=== PATIENT | female | born 1950 | race Caucasian/White ===

== ENCOUNTER 2016-06-13 10:28 | Outpatient (CLI) | payer MEDICARE, OTHER | END 2016-06-13 10:29 | DX: E11.9 Type 2 diabetes mellitus without complications (principal) ==

== ENCOUNTER 2016-06-30 10:01 | Outpatient (CLI) | payer MEDICARE, OTHER | END 2016-06-30 10:02 | disposition home or self-care (01) | DX: E11.9 Type 2 diabetes mellitus without complications (principal); E01.0 Iodine-deficiency related diffuse (endemic) goiter ==

== ENCOUNTER 2016-08-01 09:05 | Outpatient (CLI) | payer MEDICARE, OTHER | END 2016-08-01 09:06 | disposition home or self-care (01) | DX: E24.9 Cushing's syndrome, unspecified (principal) ==

== ENCOUNTER 2016-08-12 08:26 | Outpatient (CLI) | payer MEDICARE, OTHER | END 2016-08-12 08:27 | disposition home or self-care (01) | DX: Z13.29 Encounter for screening for other suspected endocrine disorder (principal) ==

== ENCOUNTER 2016-09-26 13:01 | Outpatient (CLI) | payer MEDICARE, OTHER | END 2016-09-26 13:02 | disposition home or self-care (01) | LOC: SC 13:01 | PROVIDERS: ATTEND Internal Medicine Pulmonary Disease | DX: G47.30 Sleep apnea, unspecified (principal); G47.8 Other sleep disorders; R06.83 Snoring; G47.10 Hypersomnia, unspecified | CPT/HCPCS: 99203; G0463; 99212 ==

== ENCOUNTER 2016-10-17 19:32 | Outpatient (CLI) | payer MEDICARE, OTHER | END 2016-10-17 19:33 | disposition home or self-care (01) | LOC: SC 19:32 | PROVIDERS: ATTEND Internal Medicine Pulmonary Disease | DX: G47.33 Obstructive sleep apnea (adult) (pediatric) (principal); G47.61 Periodic limb movement disorder | CPT/HCPCS: 95810 ==

== ENCOUNTER 2016-10-18 17:35 | Outpatient (CLI) | payer MEDICARE, OTHER ==
[2016-10-18 13:37] LABS: HEMOGLOBIN A1C 0.63 g/dL
== END 2016-10-18 17:36 | disposition home or self-care (01) ==
LOC: LAB.WCP 17:35
PROVIDERS: ATTEND Family Medicine
DX: E11.9 Type 2 diabetes mellitus without complications (principal)
CPT/HCPCS: 36415; 83036; 84443

== ENCOUNTER 2016-10-19 15:00 | Outpatient (CLI) | payer MEDICARE, OTHER | END 2016-10-19 15:01 | LOC: LAB.R 15:00 | PROVIDERS: ATTEND Physician Assistant Medical | DX: N39.0 Urinary tract infection, site not specified (principal) | CPT/HCPCS: 87086 ==

== ENCOUNTER 2016-10-21 12:42 | Outpatient (CLI) | payer MEDICARE, OTHER ==
--- NOTE | 2016-10-24 13:05 | Mammography Report ---
DIGITAL SCREENING MAMMOGRAM: 10/21/2016 CLINICAL INDICATION: A 66-year-old for screening. COMPARISON: 09/2014, 05/2013, 05/2012, 05/2011, 05/2010, 05/2009 TECHNIQUE: Routine CC and MLO projections were obtained of the breasts. FINDINGS: The breasts again demonstrate heterogeneously dense fibroglandular parenchyma bilaterally. Coarse and punctate, typically benign calcifications are present. No suspicious masses, clustered microcalcifications, or regions of architectural distortion are identified. IMPRESSION: BENIGN FINDINGS. RECOMMENDATION: Routine annual screening unless otherwise clinically indicated. BIRADS CATEGORY 2 - BENIGN FINDINGS. STANDARD QUALIFYING STATEMENTS 1. This examination was reviewed with the aid of Computer-Aided Detection (CAD). 2. A negative or benign imaging report should not delay biopsy if clinically suspicious findings are present. Consider surgical consultation if warranted. More than 5% of cancers are not identified by i maging. 3. Dense breasts may obscure an underlying neoplasm. JOB #: [id number] EXT JOB #:[id number]
== END 2016-10-21 12:43 | disposition home or self-care (01) ==
LOC: DI 12:42
PROVIDERS: ATTEND Physician Assistant Medical
DX: Z12.31 Encounter for screening mammogram for malignant neoplasm of breast (principal)
CPT/HCPCS: 77067

== ENCOUNTER 2016-11-07 14:05 | Outpatient (CLI) | payer MEDICARE, OTHER | END 2016-11-07 14:06 | disposition home or self-care (01) | LOC: SC 14:05 | PROVIDERS: ATTEND Nurse Practitioner Family | DX: G47.33 Obstructive sleep apnea (adult) (pediatric) (principal); G47.61 Periodic limb movement disorder | CPT/HCPCS: 99214; G0463; 99212 ==

== ENCOUNTER 2017-03-02 13:17 | Outpatient (CLI) | payer MEDICARE, OTHER | END 2017-03-02 13:18 | disposition home or self-care (01) | LOC: SC 13:17 | PROVIDERS: ATTEND Nurse Practitioner Family | DX: G47.33 Obstructive sleep apnea (adult) (pediatric) (principal); G47.00 Insomnia, unspecified | CPT/HCPCS: 99214; G0463; 99212 ==

== ENCOUNTER 2017-04-04 09:06 | Emergency (ER) | payer MEDICARE, OTHER ==
--- NOTE | 2017-04-04 09:42 | XRAY Preliminary Report ---
Exam: XR ANKLE 3 VIEW LT IMPRESSION: Transverse possibly comminuted nondisplaced fracture base of fifth metatarsal. Three-view foot radiograph recommended for further assessment. Accessory ossicles or residua of old trauma in the region of the medial malleolus. No additional frac tures. No acute joint abnormality. Moderate soft tissue swelling about the ankle and proximal foot. [facility] SITE ID: [id number]
--- NOTE | 2017-04-04 09:48 | XRAY Report ---
EXAM: LEFT ANKLE RADIOGRAPHY, 3 VIEWS EXAM DATE: 04/04/2017 09:35 AM. CLINICAL HISTORY: 67-year-old female post ankle inversion injury yesterday. COMPARISON: None. TECHNIQUE: Frontal, lateral and oblique views. FINDINGS: Bones: Accessory ossicles or residua of old unfused fracture distal tip medial malleolus. Transverse essentially nondisplaced possibly mildly comminuted fracture base of fifth metatarsal. Moderate-sized plantar heel spur incidentally noted. No other osseous abnormalities noted. Joints: Normal. No effusion. No subluxations. The ankle mortise is normally aligned. Soft Tissues: Moderate diffuse soft tissue swelling about the ankle and proximal foot. No soft tissue gas or foreign body. IMPRESSION: Transverse possibly comminuted nondisplaced fracture base of fifth metatarsal. Three-view foot radiograph recommended for further assessment. Accessory ossicles or residua of old trauma in the region of the medial malleolus. No additional frac tures. No acute joint abnormality. Moderate soft tissue swelling about the ankle and proximal foot. [facility] Referring Provider Line: [phone] SITE ID: [id number]
[2017-04-04] MEDS ORDERED: HYDROcod/ACETAM 5/325 MG TABLET PO STA (12:04)
--- NOTE | 2017-04-04 12:40 | ED Physician Documentation ---
PD HPI LOWER EXT INJURY - Stated complaint Stated Complaint: GLF/LT FT PX - Chief complaint Chief Complaint: Ext Problem - History obtained from History obtained from: Patient, Family - History of Present Illness PD HPI LOW EXT INJURY LOCATION: Left, Ankle, Foot Type of injury: Fall, Twist Where injury occurred: Home Timing - onset: Last night Timing - duration: Hours Timing - details: Abrupt onset, Still present Improved by: Rest, Immobilization Worsened by: Moving, Palpating Associated symptoms: Swelling. No: Weakness Contributing factors: No: Anticoagulated Similar symptoms before: Has not had sx before Recently seen: Not recently seen - Additional information Additional information: 67-year-old female stepped off of her porch last night fell twisted her foot and ankle and has significant pain and swelling to the foot and ankle. She is not able to bear weight. Review of Systems Constitutional: denies: Fever Respiratory: denies: Cough GI: denies: Vomiting : denies: Dysuria Skin: denies: Rash Musculoskeletal: reports: Extremity pain, Extremity swelling, Pain with weight bearing. 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, 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 - Present Medications Home Medications: Ambulatory Orders Medication Instructions Recorded Confirmed Esomeprazole Magnesium [Nexium] 40 mg PO DAILY 04/24/14 04/04/17 Levothyroxine [Synthroid] 200 mcg PO QDAC 04/24/14 04/04/17 Losartan [Cozaar] 100 mg PO DAILY 04/24/14 04/04/17 Montelukast [Singulair] 10 mg PO DAILY 04/24/14 04/04/17 PARoxetine [Paxil] 60 mg PO DAILY 04/24/14 04/04/17 Pregabalin [Lyrica] 150 mg PO BID 04/24/14 04/04/17 Simvastatin 10 mg PO QPM 04/24/14 04/04/17 Metoprolol Tartrate 25 mg PO BID 02/24/15 04/04/17 metFORMIN [Glucophage] 1,000 mg PO BIDWM 02/24/15 04/04/17 HYDROcod/ACETAM 5/325 [[place] 5/325] 1 - 2 ea PO Q6H PRN #15 tablet 04/04/17 Rivaroxaban [Xarelto] 40 mg PO DAILY 04/04/17 04/04/17 - Allergies Allergies/Adverse Reactions: Allergies Allergy/AdvReac Type Severity Reaction Status Date / Time Iodine and Iodide Containing Allergy Rash Verified 04/04/17 09:16 Produc sulfamethoxazole Allergy Rash Verified 04/04/17 09:16 [From Bactrim] trimethoprim [From Bactrim] Allergy Rash Verified 04/04/17 09:16 Iodinated Contrast- Oral and AdvReac Mild Hives Verified 04/04/17 09:16 IV Dye cyclobenzaprine HCl * AdvReac Unknown Verified 04/04/17 09:16 [From Flexeril] - Social History Does the pt smoke?: No Smoking Status: Never smoker Does the pt drink ETOH?: No Does the pt have substance abuse?: No - Immunizations Immunizations are current?: Yes PD ED PE NORMAL - Vitals Vital signs reviewed: Yes (normal ) - General General: No acute distress, Well developed/nourished - HEENT HEENT: Atraumatic, PERRL - Respiratory Respiratory: No respiratory distress - Derm Derm: Normal color, Warm and dry, No rash - Extremities Extremities: No deformity, Other (There is swelling and point tenderness and ecchymosis over the proximal fifth metatarsal on the left foot. There is swelling over the ankle as well with some point tenderness over the talofibular ligament and over the anterior ankle. The distal neurovascular components are intact.) - Neuro Neuro: No motor deficit, No sensory deficit Eye Opening: Spontaneous Motor: Obeys Commands Verbal: Oriented GCS Score: 15 - Psych Psych: Normal mood, Normal affect Results - Vitals Vitals: Vital Signs - 24 hr 04/04/17 04/04/17 09:14 12:48 Temperature 37.0 C 36.3 C L Heart Rate 67 73 Respiratory 16 20 Rate Blood Pressure 129/67 127/71 O2 Saturation 91 L 94 Oxygen O2 Source [] Room air O2 Source Room air - Rads (name of study) Left Ankle Radiology: Prelim report reviewed (Impression: Transverse possibly comminuted nondisplaced fracture base of fifth metatarsal accessory ossicles or residual of old trauma in the region of the medial malleolus no additional fractures no acute joint abnormality. Moderate soft tissue swelling about the ankle and proximal foot.), EMP read indepedently, See rad report left foot Radiology: Prelim report reviewed (Impression: Transverse fracture at the base of the fifth metatarsal.), EMP read indepedently, See rad report Procedures - Splint (location) left foot Splint applied by: [employer]ber[employer] Type of splint: Fiberglass, Posterior Other: Patient tolerated well, No complications, Neurovascular intact, Good alignment, Crutches provided PD MEDICAL DECISION MAKING - ED course Complexity details: reviewed results, re-evaluated patient, considered differential, d/w patient, d/w family ED course: 67-year-old female with an injury to her left foot has a nondisplaced fracture of the proximal fifth metatarsal she has some general swelling of her ankle as well she is placed into a posterior splint and onto crutches she is given hydrocodone for pain. Departure - Departure Disposition: 01 Home, Self Care Clinical Impression: Metatarsal bone fracture Qualifiers: Encounter type: initial encounter Metatarsal bone: fifth Fracture type: closed Fracture alignment: nondisplaced Laterality: left Qualified Code(s): S92.355A - Nondisplaced fracture of fifth metatarsal bone, left foot, initial encounter for closed fracture Condition: Stable Instructions: ED Crutch Walking, ED Fx Foot Follow-Up: Corinne Munoz PA-C [Primary Care Provider] - Prescriptions: HYDROcod/ACETAM 5/325 [[place] 5/325] 1 - 2 ea PO Q6H PRN #15 tablet PRN Reason: Pain
[2017-04-04 12:48] VITALS: BP 127/71
--- NOTE | 2017-04-04 12:49 | XRAY Report ---
EXAM: LEFT FOOT RADIOGRAPHY EXAM DATE: 04/04/2017 12:37 PM. CLINICAL HISTORY: Prox 5th fracture. COMPARISON: None. TECHNIQUE: 3 views. FINDINGS: There is a transverse fracture of the base of the fifth metatarsal with mild displacement. No other f racture is identified. There is a plantar calcaneal spur. Impression: Transverse fracture at the base of the fifth metatarsal. [facility] Referring Provider Line: [phone] SITE ID: [id number]
== END 2017-04-04 13:21 | disposition home or self-care (01) ==
LOC: ED 09:06
DX: S92.355A Nondisplaced fracture of fifth metatarsal bone, left foot, initial encounter for closed fracture (principal); X50.1XXA Overexertion from prolonged static or awkward postures, initial encounter; Y92.019 Unspecified place in single-family (private) house as the place of occurrence of the external cause; I10 Essential (primary) hypertension; E11.9 Type 2 diabetes mellitus without complications; Z79.84 Long term (current) use of oral hypoglycemic drugs; E78.00 Pure hypercholesterolemia, unspecified; E03.9 Hypothyroidism, unspecified; M19.90 Unspecified osteoarthritis, unspecified site; M06.9 Rheumatoid arthritis, unspecified; Z86.711 Personal history of pulmonary embolism
CPT/HCPCS: 29505; 73610; 73630; 99283; 99284; A9270

== ENCOUNTER 2017-04-28 14:25 | Outpatient (CLI) | payer MEDICARE, OTHER | END 2017-04-28 14:26 | disposition home or self-care (01) | LOC: LAB.R 14:25 | PROVIDERS: ATTEND Registered Nurse | DX: N30.01 Acute cystitis with hematuria (principal) | CPT/HCPCS: 87077; 87086 ==

== ENCOUNTER 2017-05-02 10:35 | Outpatient (CLI) | payer MEDICARE, OTHER ==
[2017-05-02 13:11] LABS: BASOPHILS # (AUTO) 0.1 10^3/uL (0.0-0.1); BASOPHILS % (AUTO) 0.9 %; EOSINOPHILS # (AUTO) 0.3 10^3/uL (0.0-0.7); EOSINOPHILS % (AUTO) 2.6 %; HGB - HEMOGLOBIN 12.8 g/dL (12.0-16.0); LYMPHOCYTES # (AUTO) 1.9 10^3/uL (1.5-3.5); LYMPHOCYTES % (AUTO) 18.8 %; MEAN CORPUSCULAR HEMOGLOBIN 29.7 pg (27.0-31.0); MEAN CORPUSCULAR HGB CONC 33.4 g/dL (32.0-36.0); MEAN CORPUSCULAR VOLUME 88.9 fL (81.0-99.0); MEAN PLATELET VOLUME 9.6 fL (7.9-10.8); MONOCYTES # (AUTO) 0.5 10^3/uL (0.0-1.0); MONOCYTES % (AUTO) 5.1 %; NEUTROPHILS # (AUTO) 7.2 10^3/uL (1.5-6.6); NEUTROPHILS % (AUTO) 72.6 %; PLT - PLATELET COUNT 276 10^3/uL (130-450); RED BLOOD COUNT 4.32 10^6/uL (4.20-5.40); RED CELL DISTRIBUTION WIDTH 14.5 % (12.0-15.0); WHITE BLOOD COUNT 9.9 x10^3/uL (4.8-10.8)
[2017-05-02 13:27] LABS: HEMOGLOBIN A1C 0.67 g/dL; HEMOGLOBIN A1C % 6.5 % (4.6-6.2)
[2017-05-02 13:30] LABS: ALBUMIN 4.3 g/dL (3.2-5.5); ALBUMIN/GLOBULIN RATIO 1.3 (1.0-2.2); ALKALINE PHOSPHATASE 69 IU/L (42-121); ALT ALANINE AMINOTRANSFERASE 11 IU/L (10-60); AST ASPARTATE AMINOTRANSFERASE 17 IU/L (10-42); BILIRUBIN,TOTAL 0.5 mg/dL (0.2-1.0); BUN - BLOOD UREA NITROGEN 17 mg/dL (6-20); CALCIUM 8.1 mg/dL (8.5-10.3); CARBON DIOXIDE - CO2 24 mmol/L (21-32); CHLORIDE 103 mmol/L (101-111); CREATININE 1.1 mg/dL (0.4-1.0); GFR - MDRD 50 (>89); GLUCOSE 138 mg/dL (70-100); SODIUM 136 mmol/L (135-145); TOTAL PROTEIN 7.5 g/dL (6.7-8.2)
[2017-05-02 13:38] LABS: THYROID STIMULATING HORMONE 6.88 uIU/mL (0.34-5.60)
[2017-05-02 14:12] LABS: FREE T4 (FREE THYROXINE) 0.87 ng/dL (0.58-1.64)
== END 2017-05-02 10:36 | disposition home or self-care (01) ==
LOC: LAB.WCP 10:35
PROVIDERS: ATTEND Physician Assistant Medical
DX: E11.9 Type 2 diabetes mellitus without complications (principal); R42 Dizziness and giddiness
CPT/HCPCS: 36415; 80053; 83036; 84439; 84443; 85025

== ENCOUNTER 2017-05-12 11:32 | Outpatient (CLI) | payer MEDICARE, OTHER | END 2017-05-12 11:33 | disposition home or self-care (01) | LOC: LAB.R 11:32 | PROVIDERS: ATTEND Registered Nurse | DX: R82.99 Other abnormal findings in urine (principal) | CPT/HCPCS: 87086 ==

== ENCOUNTER 2017-05-18 08:00 | Outpatient (CLI) | payer MEDICARE, OTHER ==
[2017-05-18 18:29] LABS: BILIRUBIN,URINE NEGATIVE (NEGATIVE); GLUCOSE, URINE (UA) NEGATIVE (NEGATIVE); KETONES,URINE (UA) NEGATIVE (NEGATIVE); LEUKOCYTE ESTERASE, URINE NEGATIVE (NEGATIVE); NITRITE,URINE NEGATIVE (NEGATIVE); OCCULT BLOOD,URINE NEGATIVE (NEGATIVE); PH,URINE 5.5 PH (5.0-7.5); PROTEIN,URINE NEGATIVE (NEGATIVE); UROBILINOGEN,URINE 0.2 (NORMAL) E.U./dL (NORMAL)
[2017-05-18 18:31] LABS: CLARITY,URINE CLEAR (CLEAR)
[2017-05-18 19:14] LABS: BACTERIA,URINE Moderate /HPF (None Seen); CASTS, URINE >50 Hyaline Casts /LPF; RBC,URINE 0-5 /HPF (0-5); SQUAMOUS EPITHELIAL CELL,UR FEW Squamous (<= Few); WBC CLUMPS,URINE PRESENT
== END 2017-05-18 08:01 | disposition home or self-care (01) ==
LOC: LAB.R 08:00
PROVIDERS: ATTEND Obstetrics & Gynecology
DX: R31.9 Hematuria, unspecified (principal)
CPT/HCPCS: 81001; 87086

== ENCOUNTER 2017-05-24 07:51 | Outpatient (CLI) | payer MEDICARE, OTHER ==
[2017-05-24] MEDS ORDERED: IOPAMIDOL-300 100 ML VIAL ONE (09:00)
[2017-05-24] MEDS ORDERED: IOPAMIDOL-300 100 ML VIAL IVP ONE (09:20)
--- NOTE | 2017-05-24 11:10 | CT Report ---
ABDOMEN AND PELVIS CT: 05/24/2017 COMPARISON: Abdomen and pelvis CT 02/21/2014. INDICATION: Hematuria. TECHNIQUE: Multiphase axial imaging of the abdomen and pelvis was performed with and without contrast. Coronal and sagittal reformats. FINDINGS: There is an ill-defined hypoenhancing focus in the inferior right kidney, 2.3 x 1.9 cm in the coronal plane, previously 2.4 x 1.7 cm in 2014. This appears essentially unchanged. There is a similar hypoenhancing focus in the inferior left kidney 1.7 x 1.6 cm , axially. No renal or other urologic stones. No bladder mass. The liver, spleen, pancreas, adrenal glands appear otherwise unremarkable. There are multiple colon diverticula without evidence of diverticulitis. No bone lesions. IMPRESSION: 1. NO UROLOGIC STONES. 2. THERE ARE HYPOENHANCING FOCI IN THE INFERIOR KIDNEYS. THEY APPEAR LIKELY UNCHANGED COMPARED TO PRIOR CT OF 2013. THAT SAID, RENAL CELL CARCINOMA MAY BE SLOW GROWING. THE AREAS COULD BE FURTHER EVALUATED WITH MRI INDICATED. In accordance with CT protocol optimization, one or more of the following dose reduction techniques were utilized for this exam: automated exposure control, adjustment of mA and/or KV based on patient size, or use of iterative reconstructive technique. TD: 05/24/2017 11:08 BECKI
== END 2017-05-24 07:52 | disposition home or self-care (01) ==
LOC: DI 07:51
PROVIDERS: ATTEND Obstetrics & Gynecology
DX: N28.89 Other specified disorders of kidney and ureter (principal); R31.9 Hematuria, unspecified
CPT/HCPCS: 74178; Q9967

== ENCOUNTER 2017-06-01 09:06 | Outpatient (CLI) | payer MEDICARE, OTHER | END 2017-06-01 09:07 | disposition home or self-care (01) | LOC: SC 09:06 | PROVIDERS: ATTEND Nurse Practitioner Family | DX: G47.33 Obstructive sleep apnea (adult) (pediatric) (principal); G47.00 Insomnia, unspecified | CPT/HCPCS: 99214; G0463; 99212 ==

== ENCOUNTER 2017-07-11 11:13 | Outpatient (CLI) | payer MEDICARE, OTHER | END 2017-07-11 11:14 | disposition home or self-care (01) | LOC: SC 11:13 | PROVIDERS: ATTEND Nurse Practitioner Family | DX: G47.33 Obstructive sleep apnea (adult) (pediatric) (principal) | CPT/HCPCS: 99214; G0463; 99212 ==

== ENCOUNTER 2017-08-28 08:00 | Outpatient (CLI) | payer MEDICARE, OTHER ==
[2017-08-28 12:49] LABS: HB2 TOTAL 12.8 g/dL; HEMOGLOBIN A1C 0.57 g/dL; HEMOGLOBIN A1C % 6.2 % (4.6-6.2)
[2017-08-28 12:55] LABS: ALBUMIN 3.7 g/dL (3.2-5.5); ALBUMIN/GLOBULIN RATIO 1.1 (1.0-2.2); ALKALINE PHOSPHATASE 77 IU/L (42-121); ALT ALANINE AMINOTRANSFERASE 11 IU/L (10-60); AST ASPARTATE AMINOTRANSFERASE 17 IU/L (10-42); BILIRUBIN,TOTAL 0.6 mg/dL (0.2-1.0); BUN - BLOOD UREA NITROGEN 20 mg/dL (6-20); CALCIUM 8.5 mg/dL (8.5-10.3); CARBON DIOXIDE - CO2 23 mmol/L (21-32); CHLORIDE 107 mmol/L (101-111); CHOL/HDL RATIO 3.3 (<4.4); CHOLESTEROL 130 mg/dL; GFR - MDRD 55 (>89); GLUCOSE 147 mg/dL (70-100); HDL CHOLESTEROL 39 mg/dL; LDL CHOLESTEROL,CALCULATED 49 mg/dL; LDL/HDL RATIO 1.3 (<4.4); SODIUM 139 mmol/L (135-145); THYROID STIMULATING HORMONE 14.75 uIU/mL (0.34-5.60); TOTAL PROTEIN 7.2 g/dL (6.7-8.2); VLDL CHOLESTEROL 42 mg/dL
[2017-08-28 13:30] LABS: FREE T4 (FREE THYROXINE) 0.69 ng/dL (0.58-1.64)
== END 2017-08-28 08:01 ==
LOC: LAB.WCP 08:00
PROVIDERS: ATTEND Physician Assistant Medical
DX: E03.9 Hypothyroidism, unspecified (principal); E11.9 Type 2 diabetes mellitus without complications; E78.5 Hyperlipidemia, unspecified
CPT/HCPCS: 36415; 80053; 80061; 83036; 83721; 84439; 84443

== ENCOUNTER 2017-12-04 09:10 | Outpatient (CLI) | payer MEDICARE, OTHER ==
[2017-12-04 14:35] LABS: BUN - BLOOD UREA NITROGEN 13 mg/dL (6-20); CALCIUM 8.8 mg/dL (8.5-10.3); CARBON DIOXIDE - CO2 26 mmol/L (21-32); CHLORIDE 105 mmol/L (101-111); CREATININE 0.9 mg/dL (0.4-1.0); GFR - MDRD 62 (>89); GLUCOSE 150 mg/dL (70-100); SODIUM 141 mmol/L (135-145)
[2017-12-04 14:38] LABS: HB2 TOTAL 13.1 g/dL; HEMOGLOBIN A1C 0.63 g/dL; HEMOGLOBIN A1C % 6.6 % (4.6-6.2)
== END 2017-12-04 09:11 | disposition home or self-care (01) ==
LOC: LAB.WCP 09:10
PROVIDERS: ATTEND Physician Assistant Medical
DX: E11.9 Type 2 diabetes mellitus without complications (principal); E03.9 Hypothyroidism, unspecified
CPT/HCPCS: 36415; 80048; 83036; 84443

== ENCOUNTER 2018-02-23 08:00 | Outpatient (CLI) | payer MEDICARE, OTHER ==
[2018-02-23 14:12] LABS: HB2 TOTAL 13.2 g/dL; HEMOGLOBIN A1C 0.61 g/dL; HEMOGLOBIN A1C % 6.4 % (4.6-6.2)
[2018-02-23 14:28] LABS: ALBUMIN 3.9 g/dL (3.2-5.5); ALBUMIN/GLOBULIN RATIO 1.2 (1.0-2.2); ALKALINE PHOSPHATASE 76 IU/L (42-121); ALT ALANINE AMINOTRANSFERASE 15 IU/L (10-60); AST ASPARTATE AMINOTRANSFERASE 17 IU/L (10-42); BILIRUBIN,TOTAL 0.4 mg/dL (0.2-1.0); BUN - BLOOD UREA NITROGEN 23 mg/dL (6-20); CALCIUM 9.4 mg/dL (8.5-10.3); CARBON DIOXIDE - CO2 23 mmol/L (21-32); CHLORIDE 105 mmol/L (101-111); CHOL/HDL RATIO 3.2 (<4.4); CHOLESTEROL 136 mg/dL; CREATININE 1.1 mg/dL (0.4-1.0); GFR - MDRD 49 (>89); GLUCOSE 111 mg/dL (70-100); HDL CHOLESTEROL 42 mg/dL; LDL CHOLESTEROL,CALCULATED 37 mg/dL; LDL/HDL RATIO 0.9 (<4.4); SODIUM 140 mmol/L (135-145); TOTAL PROTEIN 7.1 g/dL (6.7-8.2); VLDL CHOLESTEROL 57 mg/dL
== END 2018-02-23 23:59 | disposition home or self-care (01) ==
LOC: LAB.WCP 08:00
PROVIDERS: ATTEND Physician Assistant Medical
DX: E11.9 Type 2 diabetes mellitus without complications (principal); E03.9 Hypothyroidism, unspecified
CPT/HCPCS: 36415; 80053; 80061; 83036; 83721; 84443

== ENCOUNTER 2018-05-25 09:25 | Outpatient (CLI) | payer MEDICARE, OTHER ==
[2018-05-25 13:10] LABS: CREATININE 1.1 mg/dL (0.4-1.0)
[2018-05-25 13:25] LABS: CALCIUM 9.3 mg/dL (8.5-10.3)
[2018-05-25 14:54] LABS: HB2 TOTAL 13.6 g/dL; HEMOGLOBIN A1C 0.66 g/dL; HEMOGLOBIN A1C % 6.6 % (4.6-6.2)
== END 2018-05-25 09:26 | disposition home or self-care (01) ==
LOC: LAB.WCP 09:25
PROVIDERS: ATTEND Physician Assistant Medical
DX: E11.9 Type 2 diabetes mellitus without complications (principal)
CPT/HCPCS: 36415; 80048; 83036

== ENCOUNTER 2018-09-03 10:37 | Outpatient (CLI) | payer MEDICARE, OTHER ==
[2018-09-03 12:41] LABS: ALBUMIN 3.8 g/dL (3.2-5.5); ALBUMIN/GLOBULIN RATIO 1.1 (1.0-2.2); ALKALINE PHOSPHATASE 69 IU/L (42-121); ALT ALANINE AMINOTRANSFERASE 12 IU/L (10-60); AST ASPARTATE AMINOTRANSFERASE 14 IU/L (10-42); BILIRUBIN,TOTAL 0.6 mg/dL (0.2-1.0); BUN - BLOOD UREA NITROGEN 20 mg/dL (6-20); CALCIUM 8.6 mg/dL (8.5-10.3); CARBON DIOXIDE - CO2 22 mmol/L (21-32); CHLORIDE 110 mmol/L (101-111); CHOL/HDL RATIO 3.6 (<4.4); CHOLESTEROL 146 mg/dL; CREATININE 0.9 mg/dL (0.4-1.0); GFR - MDRD 62 (>89); GLUCOSE 146 mg/dL (70-100); HDL CHOLESTEROL 41 mg/dL; LDL CHOLESTEROL,CALCULATED 69 mg/dL; LDL/HDL RATIO 1.7 (<4.4); SODIUM 142 mmol/L (135-145); TOTAL PROTEIN 7.2 g/dL (6.7-8.2); VLDL CHOLESTEROL 36 mg/dL
[2018-09-03 12:44] LABS: HB2 TOTAL 12.3 g/dL; HEMOGLOBIN A1C 0.6 g/dL; HEMOGLOBIN A1C % 6.6 % (4.6-6.2)
== END 2018-09-03 10:38 | disposition home or self-care (01) ==
LOC: LAB.WCP 10:37
PROVIDERS: ATTEND Physician Assistant Medical
DX: E11.9 Type 2 diabetes mellitus without complications (principal); E78.5 Hyperlipidemia, unspecified
CPT/HCPCS: 36415; 80053; 80061; 83036; 83721

== ENCOUNTER 2018-12-31 11:00 | Outpatient (CLI) | payer MEDICARE, OTHER ==
[2018-12-31 19:04] LABS: CALCIUM 8.7 mg/dL (8.5-10.3)
[2018-12-31 19:14] LABS: HB2 TOTAL 13.2 g/dL; HEMOGLOBIN A1C 0.67 g/dL; HEMOGLOBIN A1C % 6.8 % (4.6-6.2)
[2019-01-01 11:16] LABS: HEPATITIS C ANTIBODY NON-REACTIVE (NON-REACTIVE)
== END 2018-12-31 11:01 | disposition home or self-care (01) ==
LOC: LAB.WCP 11:00
PROVIDERS: ATTEND Physician Assistant Medical
DX: E11.9 Type 2 diabetes mellitus without complications (principal); Z11.59 Encounter for screening for other viral diseases
CPT/HCPCS: 36415; 80048; 83036; 86803

== ENCOUNTER 2019-04-29 11:49 | Outpatient (CLI) | payer MEDICARE, OTHER ==
[2019-04-29 18:51] LABS: ALBUMIN 3.9 g/dL (3.2-5.5); ALBUMIN/GLOBULIN RATIO 1.1 (1.0-2.2); ALKALINE PHOSPHATASE 62 IU/L (42-121); ALT ALANINE AMINOTRANSFERASE 18 IU/L (10-60); AST ASPARTATE AMINOTRANSFERASE 21 IU/L (10-42); BILIRUBIN,TOTAL 0.5 mg/dL (0.2-1.0); BUN - BLOOD UREA NITROGEN 21 mg/dL (6-20); CALCIUM 8.9 mg/dL (8.5-10.3); CARBON DIOXIDE - CO2 26 mmol/L (21-32); CHLORIDE 105 mmol/L (101-111); CHOL/HDL RATIO 3.3 (<4.4); CHOLESTEROL 137 mg/dL; GFR - MDRD 55 (>89); GLUCOSE 149 mg/dL (70-100); HDL CHOLESTEROL 42 mg/dL; LDL CHOLESTEROL,CALCULATED 49 mg/dL; LDL/HDL RATIO 1.2 (<4.4); SODIUM 142 mmol/L (135-145); TOTAL PROTEIN 7.4 g/dL (6.7-8.2); VLDL CHOLESTEROL 46 mg/dL
[2019-04-29 19:07] LABS: HEMOGLOBIN A1C 0.68 g/dL; HEMOGLOBIN A1C % 6.9 % (4.6-6.2)
== END 2019-04-29 23:59 | disposition home or self-care (01) ==
LOC: LAB.WCP 11:49
PROVIDERS: ATTEND Physician Assistant Medical
DX: E11.9 Type 2 diabetes mellitus without complications (principal)
CPT/HCPCS: 36415; 80053; 80061; 83036; 83721

== ENCOUNTER 2019-08-26 11:26 | Outpatient (CLI) | payer MEDICARE, OTHER ==
[2019-08-26 18:52] LABS: ALBUMIN/GLOBULIN RATIO 1.1 (1.0-2.2); ALKALINE PHOSPHATASE 72 IU/L (42-121); ALT ALANINE AMINOTRANSFERASE 25 IU/L (10-60); AST ASPARTATE AMINOTRANSFERASE 27 IU/L (10-42); BILIRUBIN,TOTAL 0.6 mg/dL (0.2-1.0); BUN - BLOOD UREA NITROGEN 18 mg/dL (6-20); CALCIUM 9.3 mg/dL (8.5-10.3); CARBON DIOXIDE - CO2 26 mmol/L (21-32); CHLORIDE 104 mmol/L (101-111); CHOL/HDL RATIO 3.4 (<4.4); CHOLESTEROL 149 mg/dL; GLUCOSE 190 mg/dL (70-100); HDL CHOLESTEROL 44 mg/dL; LDL CHOLESTEROL,CALCULATED 59 mg/dL; LDL/HDL RATIO 1.3 (<4.4); SODIUM 140 mmol/L (135-145); TOTAL PROTEIN 7.6 g/dL (6.7-8.2); VLDL CHOLESTEROL 46 mg/dL
[2019-08-26 19:01] LABS: HB2 TOTAL 14.2 g/dL; HEMOGLOBIN A1C 0.77 g/dL; HEMOGLOBIN A1C % 7.1 % (4.6-6.2)
[2019-08-26 19:03] LABS: CREATININE,URINE 95.9 mg/dL; MICROALBUM/CREATININE RATIO,UR 78.2 ug/mg (<30.0); MICROALBUMIN,URINE 7.5 mg/dL (0-300.0)
== END 2019-08-26 23:59 | disposition home or self-care (01) ==
LOC: LAB.WCP 11:26
PROVIDERS: ATTEND Physician Assistant Medical
DX: E11.9 Type 2 diabetes mellitus without complications (principal)
CPT/HCPCS: 36415; 80053; 80061; 82043; 82570; 83036; 83721

== ENCOUNTER 2019-11-28 07:48 | Day surgery (SDC) | payer MEDICARE, OTHER ==
[2019-11-28] MEDS ORDERED: fentaNYL 250 MCG/5 ML VIAL IVP ONE (07:49)
[2019-11-28] MEDS ORDERED: MIDAZOLAM 2 MG/2 ML VIAL IVP ONE (07:49)
[2019-11-28] MEDS ORDERED: LACTATED RINGERS 1,000 ML IV ONE ×2 (08:15→10:28)
[2019-11-28 11:04] VITALS: BP 97/77
== END 2019-11-28 07:49 | disposition home or self-care (01) ==
LOC: SDS 07:48
PROVIDERS: ATTEND Surgery
DX: Z12.11 Encounter for screening for malignant neoplasm of colon (principal); K57.30 Diverticulosis of large intestine without perforation or abscess without bleeding; Z79.82 Long term (current) use of aspirin; G47.33 Obstructive sleep apnea (adult) (pediatric); M06.9 Rheumatoid arthritis, unspecified; Z86.711 Personal history of pulmonary embolism; F32.9 Major depressive disorder, single episode, unspecified; K21.9 Gastro-esophageal reflux disease without esophagitis; E11.9 Type 2 diabetes mellitus without complications; I10 Essential (primary) hypertension; E78.5 Hyperlipidemia, unspecified; E03.9 Hypothyroidism, unspecified
CPT/HCPCS: G0105; J3010; J7120

== ENCOUNTER 2020-09-10 08:00 | Outpatient (CLI) | payer MEDICARE, OTHER ==
[2020-09-10 12:21] LABS: BASOPHILS # (AUTO) 0.1 10^3/uL (0.0-0.1); BASOPHILS % (AUTO) 0.8 %; EOSINOPHILS # (AUTO) 0.3 10^3/uL (0.0-0.7); EOSINOPHILS % (AUTO) 1.9 %; HCT - HEMATOCRIT 40.5 % (37.0-47.0); HGB - HEMOGLOBIN 12.9 g/dL (12.0-16.0); LYMPHOCYTES # (AUTO) 2.5 10^3/uL (1.5-3.5); LYMPHOCYTES % (AUTO) 18.6 %; MEAN CORPUSCULAR HEMOGLOBIN 27.6 pg (27.0-31.0); MEAN CORPUSCULAR HGB CONC 31.9 g/dL (32.0-36.0); MEAN CORPUSCULAR VOLUME 86.7 fL (81.0-99.0); MEAN PLATELET VOLUME 11.7 fL (7.9-10.8); MONOCYTES # (AUTO) 0.7 10^3/uL (0.0-1.0); MONOCYTES % (AUTO) 5.3 %; NEUTROPHILS # (AUTO) 9.7 10^3/uL (1.5-6.6); NEUTROPHILS % (AUTO) 72.7 %; PLT - PLATELET COUNT 350 10^3/uL (130-450); RED BLOOD COUNT 4.67 10^6/uL (4.20-5.40); RED CELL DISTRIBUTION WIDTH 15.1 % (12.0-15.0); WHITE BLOOD COUNT 13.3 x10^3/uL (4.8-10.8)
[2020-09-10 12:31] LABS: ESTIMATED AVERAGE GLUCOSE 166 mg/dL (70-100); HEMOGLOBIN A1c% 7.4 % (4.27-6.07)
[2020-09-10 12:47] LABS: ALBUMIN 4.1 g/dL (3.2-5.5); ALBUMIN/GLOBULIN RATIO 1.1 (1.0-2.2); ALKALINE PHOSPHATASE 84 IU/L (42-121); ALT ALANINE AMINOTRANSFERASE 17 IU/L (10-60); AST ASPARTATE AMINOTRANSFERASE 17 IU/L (10-42); BILIRUBIN,TOTAL 0.8 mg/dL (0.2-1.0); BUN - BLOOD UREA NITROGEN 26 mg/dL (6-20); CALCIUM 9.2 mg/dL (8.5-10.3); CARBON DIOXIDE - CO2 24 mmol/L (21-32); CHLORIDE 103 mmol/L (101-111); CHOL/HDL RATIO 3.6 (<4.4); CHOLESTEROL 167 mg/dL; CREATININE 1.2 mg/dL (0.4-1.0); CREATININE,URINE 187.4 mg/dL; GFR - MDRD 44 (>89); GLUCOSE 193 mg/dL (70-100); HDL CHOLESTEROL 47 mg/dL; LDL CHOLESTEROL,CALCULATED 64 mg/dL; LDL/HDL RATIO 1.4 (<4.4); MICROALBUM/CREATININE RATIO,UR 51.2 ug/mg (<30.0); MICROALBUMIN,URINE 9.6 mg/dL (0-300.0); POTASSIUM 4.4 mmol/L (3.5-5.0); SODIUM 137 mmol/L (135-145); TOTAL PROTEIN 7.8 g/dL (6.7-8.2); TRIGLYCERIDES 281 mg/dL; VLDL CHOLESTEROL 56 mg/dL
[2020-09-10 12:52] LABS: THYROID STIMULATING HORMONE < 0.08 uIU/mL (0.34-5.60)
[2020-09-10 14:35] LABS: FREE T4 (FREE THYROXINE) 1.62 ng/dL (0.58-1.64)
== END 2020-09-10 08:01 | disposition home or self-care (01) ==
LOC: LAB.WCP 08:00
PROVIDERS: ATTEND Physician Assistant Medical
DX: E11.9 Type 2 diabetes mellitus without complications (principal); G62.9 Polyneuropathy, unspecified; J45.909 Unspecified asthma, uncomplicated
CPT/HCPCS: 36415; 80053; 80061; 82043; 82570; 82607; 83036; 83721; 84439; 84443; 85025

== ENCOUNTER 2020-10-22 10:04 | Outpatient (CLI) | payer MEDICARE, OTHER ==
[2020-10-22 12:14] LABS: BASOPHILS # (AUTO) 0.1 10^3/uL (0.0-0.1); BASOPHILS % (AUTO) 0.8 %; EOSINOPHILS # (AUTO) 0.4 10^3/uL (0.0-0.7); EOSINOPHILS % (AUTO) 3.1 %; HCT - HEMATOCRIT 40.3 % (37.0-47.0); HGB - HEMOGLOBIN 12.5 g/dL (12.0-16.0); LYMPHOCYTES # (AUTO) 2.6 10^3/uL (1.5-3.5); LYMPHOCYTES % (AUTO) 22.3 %; MEAN CORPUSCULAR HEMOGLOBIN 27.1 pg (27.0-31.0); MEAN CORPUSCULAR VOLUME 87.4 fL (81.0-99.0); MEAN PLATELET VOLUME 11.3 fL (7.9-10.8); MONOCYTES # (AUTO) 0.7 10^3/uL (0.0-1.0); MONOCYTES % (AUTO) 5.7 %; NEUTROPHILS % (AUTO) 67.3 %; PLT - PLATELET COUNT 319 10^3/uL (130-450); RED BLOOD COUNT 4.61 10^6/uL (4.20-5.40); RED CELL DISTRIBUTION WIDTH 15.4 % (12.0-15.0); WHITE BLOOD COUNT 11.9 x10^3/uL (4.8-10.8)
[2020-10-22 12:31] LABS: CALCIUM 9.6 mg/dL (8.5-10.3); CREATININE 1.1 mg/dL (0.4-1.0); POTASSIUM 4.6 mmol/L (3.5-5.0)
[2020-10-22 13:00] LABS: THYROID STIMULATING HORMONE < 0.08 uIU/mL (0.34-5.60)
[2020-10-22 13:34] LABS: FREE T4 (FREE THYROXINE) 1.68 ng/dL (0.58-1.64)
== END 2020-10-22 23:59 | disposition home or self-care (01) ==
LOC: LAB.WCP 10:04
PROVIDERS: ATTEND Physician Assistant Medical
DX: E11.9 Type 2 diabetes mellitus without complications (principal); E03.9 Hypothyroidism, unspecified; K21.9 Gastro-esophageal reflux disease without esophagitis
CPT/HCPCS: 36415; 80048; 84439; 84443; 85025

== ENCOUNTER 2020-12-01 08:52 | Outpatient (CLI) | payer MEDICARE, OTHER ==
[2020-12-01 12:07] LABS: BASOPHILS # (AUTO) 0.1 10^3/uL (0.0-0.1); EOSINOPHILS # (AUTO) 0.4 10^3/uL (0.0-0.7); EOSINOPHILS % (AUTO) 2.7 %; LYMPHOCYTES # (AUTO) 3.3 10^3/uL (1.5-3.5); LYMPHOCYTES % (AUTO) 25.4 %; MEAN CORPUSCULAR HEMOGLOBIN 27.3 pg (27.0-31.0); MEAN CORPUSCULAR VOLUME 88.2 fL (81.0-99.0); MEAN PLATELET VOLUME 11.4 fL (7.9-10.8); MONOCYTES # (AUTO) 0.7 10^3/uL (0.0-1.0); NEUTROPHILS # (AUTO) 8.4 10^3/uL (1.5-6.6); NEUTROPHILS % (AUTO) 65.2 %; PLT - PLATELET COUNT 393 10^3/uL (130-450); RED BLOOD COUNT 4.76 10^6/uL (4.20-5.40); RED CELL DISTRIBUTION WIDTH 15.4 % (12.0-15.0); WHITE BLOOD COUNT 12.9 x10^3/uL (4.8-10.8)
[2020-12-01 12:37] LABS: ALBUMIN 3.9 g/dL (3.2-5.5); ALBUMIN/GLOBULIN RATIO 1.1 (1.0-2.2); BILIRUBIN,TOTAL 0.8 mg/dL (0.2-1.0); CALCIUM 9.1 mg/dL (8.5-10.3); CREATININE 1.2 mg/dL (0.4-1.0); POTASSIUM 4.3 mmol/L (3.5-5.0); TOTAL PROTEIN 7.5 g/dL (6.7-8.2)
[2020-12-01 12:57] LABS: ESTIMATED AVERAGE GLUCOSE 174 mg/dL (70-100); HEMOGLOBIN A1c% 7.7 % (4.27-6.07)
== END 2020-12-01 23:59 | disposition home or self-care (01) ==
LOC: LAB.WCP 08:52
PROVIDERS: ATTEND Physician Assistant Medical
DX: E53.8 Deficiency of other specified B group vitamins (principal); D72.829 Elevated white blood cell count, unspecified; E11.22 Type 2 diabetes mellitus with diabetic chronic kidney disease; N18.9 Chronic kidney disease, unspecified
CPT/HCPCS: 36415; 80053; 82607; 83036; 85025

== ENCOUNTER 2020-12-04 08:00 | Outpatient (CLI) | payer MEDICARE, OTHER | END 2020-12-04 23:59 | disposition home or self-care (01) | LOC: LAB 08:00 | PROVIDERS: ATTEND Physician Assistant Medical | DX: N39.0 Urinary tract infection, site not specified (principal) | CPT/HCPCS: 87086; 87181 ==

== ENCOUNTER 2021-03-02 10:03 | Outpatient (CLI) | payer MEDICARE, OTHER ==
[2021-03-02 14:51] LABS: BASOPHILS # (AUTO) 0.1 10^3/uL (0.0-0.1); BASOPHILS % (AUTO) 0.7 %; EOSINOPHILS # (AUTO) 0.4 10^3/uL (0.0-0.7); EOSINOPHILS % (AUTO) 3.8 %; HCT - HEMATOCRIT 39.9 % (37.0-47.0); HGB - HEMOGLOBIN 12.7 g/dL (12.0-16.0); LYMPHOCYTES # (AUTO) 3.5 10^3/uL (1.5-3.5); LYMPHOCYTES % (AUTO) 31.4 %; MEAN CORPUSCULAR HEMOGLOBIN 28.3 pg (27.0-31.0); MEAN CORPUSCULAR HGB CONC 31.8 g/dL (32.0-36.0); MEAN CORPUSCULAR VOLUME 88.9 fL (81.0-99.0); MEAN PLATELET VOLUME 11.7 fL (7.9-10.8); MONOCYTES # (AUTO) 0.6 10^3/uL (0.0-1.0); NEUTROPHILS # (AUTO) 6.6 10^3/uL (1.5-6.6); NEUTROPHILS % (AUTO) 58.4 %; PLT - PLATELET COUNT 363 10^3/uL (130-450); RED BLOOD COUNT 4.49 10^6/uL (4.20-5.40); RED CELL DISTRIBUTION WIDTH 14.6 % (12.0-15.0); WHITE BLOOD COUNT 11.2 x10^3/uL (4.8-10.8)
[2021-03-02 15:28] LABS: ALBUMIN 3.6 g/dL (3.2-5.5); BILIRUBIN,TOTAL 0.5 mg/dL (0.2-1.0); CREATININE 1.3 mg/dL (0.4-1.0); POTASSIUM 4.4 mmol/L (3.5-5.0); TOTAL PROTEIN 7.3 g/dL (6.7-8.2)
[2021-03-02 19:22] LABS: ESTIMATED AVERAGE GLUCOSE 163 mg/dL (70-100); HEMOGLOBIN A1c% 7.3 % (4.27-6.07)
== END 2021-03-02 23:59 | disposition home or self-care (01) ==
LOC: LAB.WCP 10:03
PROVIDERS: ATTEND Physician Assistant Medical
DX: E11.9 Type 2 diabetes mellitus without complications (principal); D72.829 Elevated white blood cell count, unspecified
CPT/HCPCS: 36415; 80053; 83036; 85025

== ENCOUNTER 2021-05-31 10:14 | Outpatient (CLI) | payer MEDICARE, OTHER ==
[2021-05-31 12:55] LABS: CALCIUM 9.1 mg/dL (8.5-10.3); CREATININE 1.2 mg/dL (0.4-1.0)
[2021-05-31 14:01] LABS: ESTIMATED AVERAGE GLUCOSE 163 mg/dL (70-100); HEMOGLOBIN A1c% 7.3 % (4.27-6.07)
== END 2021-05-31 10:15 | disposition home or self-care (01) ==
LOC: LAB.N 10:14
PROVIDERS: ATTEND Physician Assistant Medical
DX: E11.9 Type 2 diabetes mellitus without complications (principal)
CPT/HCPCS: 36415; 80048; 83036

== ENCOUNTER 2021-07-26 11:23 | Outpatient (CLI) | payer MEDICARE, OTHER ==
--- NOTE | 2021-07-26 15:30 | Mammography Report ---
BILATERAL DIGITAL SCREENING MAMMOGRAM 3D/2D: 07/26/2021 CLINICAL: Routine screening. Comparison is made to exams dated: 10/21/2016 mammogram, 09/19/2014 mammogram, 06/05/2013 mammogram, mammogram, and 05/19/2011 mammogram - [facility]. The tissue of both breasts is predominantly fatty. There is a new asymmetry in the right breast middle depth superior region seen on the mediolateral ob lique view only. There is a new oval asymmetry in the left breast central to the nipple posterior depth. There also is an asymmetry in the left breast at 6 o'clock middle depth. No other significant masses or calcifications are seen in either breast. IMPRESSION: INCOMPLETE: NEEDS ADDITIONAL IMAGING EVALUATION The new asymmetry in the right breast middle depth superior region seen on the mediolateral oblique v iew only is indeterminate. Additional views with possible ultrasound are recommended. The new oval asymmetry in the left breast central to the nipple posterior depth is indeterminate. Ad ditional views with possible ultrasound are recommended. The asymmetry in the left breast at 6 o'clock middle depth is indeterminate. Additional views with p ossible ultrasound are recommended. This exam was interpreted at Station ID: [id number]. NOTE: For mammograms, a report in lay terms will be sent to the patient. Approximately 15% of breast malignancies will not be visualized mammographically. In the management of a palpable breast mass, a negative mammogram must not discourage biopsy of a clinically suspicious lesion. Electronically Signed By: Jordan Gar acr/:07/26/2021 12:48:26 ACR BI-RADS Category 0: Incomplete 3340F PARENCHYMAL PATTERN: (F) - The breast(s) demonstrate(s) diffuse fatty replacement. BI-RADS CATEGORY: (0) - 0 Mammo and [place] [id number] Immediate follow-up LATERALITY: (B)
== END 2021-07-26 11:24 | disposition home or self-care (01) ==
LOC: DI.N 11:23
DX: Z12.31 Encounter for screening mammogram for malignant neoplasm of breast (principal); R92.8 Other abnormal and inconclusive findings on diagnostic imaging of breast

== ENCOUNTER 2021-08-26 10:11 | Outpatient (CLI) | payer MEDICARE, OTHER ==
[2021-08-26 11:51] LABS: ALBUMIN 3.8 g/dL (3.2-5.5); ALBUMIN/GLOBULIN RATIO 1.1 (1.0-2.2); ALKALINE PHOSPHATASE 80 IU/L (42-121); ALT ALANINE AMINOTRANSFERASE 16 IU/L (10-60); AST ASPARTATE AMINOTRANSFERASE 22 IU/L (10-42); BILIRUBIN,TOTAL 0.8 mg/dL (0.2-1.0); BUN - BLOOD UREA NITROGEN 17 mg/dL (6-20); CALCIUM 9.1 mg/dL (8.5-10.3); CARBON DIOXIDE - CO2 24 mmol/L (21-32); CHLORIDE 103 mmol/L (101-111); CHOL/HDL RATIO 4.1 (<4.4); CHOLESTEROL 163 mg/dL; CREATININE 1.4 mg/dL (0.4-1.0); GFR - MDRD 37 (>89); GLUCOSE 259 mg/dL (70-100); HDL CHOLESTEROL 40 mg/dL; LDL CHOLESTEROL,CALCULATED 62 mg/dL; LDL/HDL RATIO 1.6 (<4.4); SODIUM 139 mmol/L (135-145); TOTAL PROTEIN 7.4 g/dL (6.7-8.2); TRIGLYCERIDES 307 mg/dL; VLDL CHOLESTEROL 61 mg/dL
[2021-08-26 14:20] LABS: ESTIMATED AVERAGE GLUCOSE 174 mg/dL (70-100); HEMOGLOBIN A1c% 7.7 % (4.27-6.07)
== END 2021-08-26 10:12 | disposition home or self-care (01) ==
LOC: LAB.N 10:11
PROVIDERS: ATTEND Physician Assistant Medical
DX: E11.9 Type 2 diabetes mellitus without complications (principal)
CPT/HCPCS: 36415; 80053; 80061; 83036; 83721

== ENCOUNTER 2021-11-17 09:51 | Outpatient (CLI) | payer MEDICARE, OTHER ==
[2021-11-17 12:48] LABS: HCT - HEMATOCRIT 39.8 % (37.0-47.0); HGB - HEMOGLOBIN 12.6 g/dL (12.0-16.0)
[2021-11-17 13:20] LABS: CREATININE,URINE 99.5 mg/dL; PROTEIN/CREATININE RATIO,URINE 0.3 (<=0.2)
[2021-11-17 13:51] LABS: ESTIMATED AVERAGE GLUCOSE 166 mg/dL (70-100); HEMOGLOBIN A1c% 7.4 % (4.27-6.07)
[2021-11-17 14:01] LABS: CALCIUM 9.5 mg/dL (8.5-10.3); CREATININE 1.2 mg/dL (0.4-1.0); POTASSIUM 4.4 mmol/L (3.5-5.0)
== END 2021-11-17 09:52 | disposition home or self-care (01) ==
LOC: LAB.N 09:51
PROVIDERS: ATTEND Internal Medicine Nephrology
DX: E11.9 Type 2 diabetes mellitus without complications (principal); N05.9 Unspecified nephritic syndrome with unspecified morphologic changes; D64.9 Anemia, unspecified; R80.9 Proteinuria, unspecified
CPT/HCPCS: 36415; 80048; 82570; 83036; 84156; 85014; 85018

== ENCOUNTER 2021-12-22 09:43 | Outpatient (CLI) | payer MEDICARE, OTHER ==
--- NOTE | 2021-12-22 15:21 | Ultrasound Report ---
PROCEDURE: Renal ultrasound INDICATIONS: CHRONIC KIDNEY DISEASE, STAGE 3B TECHNIQUE: Real-time scanning was performed of the retroperitoneal organs, with image documentation. COMPARISON: None. FINDINGS: Kidneys: Kidneys are normal in size. Right kidney measures 9.5 cm long; left kidney measures 9.3 cm long. Right renal cortical thickness is 1.3 cm; left renal cortical thickness is 1.2 cm. No solid masses, hydronephrosis, or nephrolithiasis. Left renal simple cysts measure 2 cm x 1.8 cm and 2.4 x 2.1 cm. Incidental possible duplicated left renal collecting system Pancreas: Visualized portions of the pancreas are sonographically normal. Aorta: Visualized aorta is normal in caliber at 3 cm or less. Iliac arteries: Proximal common iliac arteries are normal in caliber at 2.5 cm or less. IVC: Intrahepatic inferior vena cava is patent. Bladder: Pre-void bladder volume is 145 mL. Post-void residual is 54 mL. Pre-void images demonstra te no intraluminal masses or stones. On pre-void images, bilateral ureteral jets are noted with colo r Doppler interrogation. (Of note, ureteral jets may not be detectable in up to 25% of cases due to insufficient differences in specific gravity between ureteral and bladder urine). Miscellaneous: No free abdominal fluid. IMPRESSION: 1. Simple left renal cysts. Otherwise unremarkable x-ray of the kidneys and 2. Postvoid residual of 54 cc Reviewed by: Nathan Olvera MD on 12/22/2021 2:19 PM [facility] Approved by: Nathan Olvera MD on 12/22/2021 2:19 PM [facility] Station ID: [id number]
== END 2021-12-22 09:44 | disposition home or self-care (01) ==
LOC: DI 09:43
PROVIDERS: ATTEND Internal Medicine Nephrology
DX: N18.32 Chronic kidney disease, stage 3b (principal); N28.1 Cyst of kidney, acquired

== ENCOUNTER 2022-02-09 13:48 | Outpatient (CLI) | payer MEDICARE, OTHER ==
--- NOTE | 2022-02-09 16:34 | CT Report ---
PROCEDURE: HEAD WO INDICATIONS: VISUAL HALLUCINATIONS TECHNIQUE: Noncontrast 4.5 mm thick angled axial sections acquired from the foramen magnum to the vertex. For r adiation dose reduction, the following was used: automated exposure control, adjustment of mA and/or kV according to patient size. COMPARISON: None. FINDINGS: Image quality: Excellent. CSF spaces: Basal cisterns are patent. No extra-axial fluid collections. Ventricles are normal in size and shape. Brain: No midline shift. No intracranial masses or hemorrhage. Donis-white matter interface is norm al. Skull and face: Calvarium and visualized facial bones are intact, without suspicious lesions. Sinuses: Visualized sinuses and mastoids are clear. IMPRESSION: No acute intracranial abnormality. Reviewed by: Jordan Gar on 02/09/2022 4:33 PM [facility] Approved by: Jordan Gar on 02/09/2022 4:33 PM [facility] Station ID: [id number]
--- NOTE | 2022-02-10 11:09 | Ultrasound Report ---
PROCEDURE: Carotid Doppler Complete INDICATIONS: VISUAL HALLUCINATION TECHNIQUE: Color and pulse Doppler interrogation was performed of both carotid systems, with image documentation and velocity measurements. COMPARISON: None. FINDINGS: Right side: Brachial blood pressure: 127/76 mm Hg. Common carotid artery peak systolic velocity: 38.6 cm/sec. Internal carotid artery peak systolic velocity: 40.4 cm/sec. Internal carotid artery end diastolic velocity: 12.3 cm/sec. External carotid artery peak systolic velocity: 76.8 cm/sec. ICA/CCA peak systolic ratio: 1.0 . Donis scale imaging description: Mild plaque at the bulb. Percent internal carotid artery stenosis: Less than 50% . Vertebral artery: Flow direction is antegrade. Left side: Brachial blood pressure: 125/77 mm Hg. Common carotid artery peak systolic velocity: 47.5 cm/sec. Internal carotid artery peak systolic velocity: 45.8 cm/sec. Internal carotid artery end diastolic velocity: 13.4 cm/sec. External carotid artery peak systolic velocity: 51.4 cm/sec. ICA/CCA peak systolic ratio: 1.3 . Donis scale imaging description: Mild plaque at the bulb Percent internal carotid artery stenosis: Less than 50% . Vertebral artery: Flow direction is antegrade. IMPRESSION: Mild plaque in both bulbs with no significant stenosis by imaging or velocity/ratio criteria. The estimate of stenosis included in the report of the imaging study was calculated using the NASCET method Reviewed by: Jordan Gar on 02/10/2022 11:08 AM [facility] Approved by: Jordan Gar on 02/10/2022 11:08 AM [facility] Station ID: [id number]
== END 2022-02-09 13:49 | disposition home or self-care (01) ==
LOC: DI 13:48
PROVIDERS: ATTEND Physician Assistant Medical
DX: R44.1 Visual hallucinations (principal); I35.8 Other nonrheumatic aortic valve disorders
CPT/HCPCS: 93306; 93880

== ENCOUNTER 2022-03-18 10:42 | Outpatient (CLI) | payer MEDICARE, OTHER ==
[2022-03-18 11:10] LABS: BASOPHILS # (AUTO) 0.1 10^3/uL (0.0-0.1); BASOPHILS % (AUTO) 0.9 %; EOSINOPHILS # (AUTO) 0.4 10^3/uL (0.0-0.7); EOSINOPHILS % (AUTO) 3.3 %; HCT - HEMATOCRIT 38.7 % (37.0-47.0); HGB - HEMOGLOBIN 12.4 g/dL (12.0-16.0); LYMPHOCYTES # (AUTO) 3.1 10^3/uL (1.5-3.5); LYMPHOCYTES % (AUTO) 24.6 %; MEAN CORPUSCULAR HEMOGLOBIN 28.9 pg (27.0-31.0); MEAN CORPUSCULAR VOLUME 90.2 fL (81.0-99.0); MONOCYTES % (AUTO) 7.8 %; NEUTROPHILS # (AUTO) 7.9 10^3/uL (1.5-6.6); NEUTROPHILS % (AUTO) 62.4 %; PLT - PLATELET COUNT 264 10^3/uL (130-450); RED BLOOD COUNT 4.29 10^6/uL (4.20-5.40); RED CELL DISTRIBUTION WIDTH 15.9 % (12.0-15.0); WHITE BLOOD COUNT 12.6 x10^3/uL (4.8-10.8)
[2022-03-18 11:24] LABS: ALBUMIN 3.8 g/dL (3.2-5.5); BILIRUBIN,TOTAL 0.7 mg/dL (0.2-1.0); CREATININE 1.3 mg/dL (0.4-1.0); MAGNESIUM 1.6 mg/dL (1.7-2.8); PHOSPHORUS 3.4 mg/dL (2.5-4.6); POTASSIUM 4.2 mmol/L (3.5-5.0); TOTAL PROTEIN 7.6 g/dL (6.7-8.2)
[2022-03-18 11:37] LABS: THYROID STIMULATING HORMONE 0.17 uIU/mL (0.34-5.60)
[2022-03-18 12:04] LABS: ESTIMATED AVERAGE GLUCOSE 143 mg/dL (70-100); HEMOGLOBIN A1c% 6.6 % (4.27-6.07)
[2022-03-18 12:25] LABS: FREE T4 (FREE THYROXINE) 1.87 ng/dL (0.58-1.64)
--- NOTE | 2022-03-18 12:43 | XRAY Report ---
PROCEDURE: Hip w/Pelvis 2-3V RT INDICATIONS: HIP PAIN TECHNIQUE: AP pelvis with lateral view(s) of the right hip(s). COMPARISON: None. FINDINGS: Bones: Mild to moderate right and mild left hip arthrosis. No displaced fracture. No dislocation. Evaluation is somewhat limited by prominent overlying soft tissues, particularly on lateral view. A m etallic object on lateral view might be external to the body. Possible age-indeterminate bone fragment adjacent to the right initial tuberosity. Soft tissues: Moderate fecal loading. IMPRESSION: Mild to moderate right hip arthrosis and mild partially seen left hip arthrosis. If there is high con cern for further derangement, consider MRI evaluation. Reviewed by: Hernan Ignacio MD on 03/18/2022 12:42 PM PST Approved by: Hernan Ignacio MD on 03/18/2022 12:42 PM PST Station ID: [id number]
--- NOTE | 2022-03-18 17:15 | XRAY Report ---
PROCEDURE: Hand 3 View RT INDICATIONS: RIGHT HAND PAIN TECHNIQUE: 3 views of the hand(s) acquired. COMPARISON: None FINDINGS: Bones: No fractures or dislocations. Osteoarthritic changes are noted throughout right-hand and wri st joints most notably involving first interphalangeal joint, second through fifth PIP joints, third through fifth distal interphalangeal joints. No suspicious bony lesions. Soft tissues: No suspicious soft tissue calcifications. Soft tissue swelling surrounding second thr ough fourth PIP joints are seen. IMPRESSION: Moderate to severe osteoarthritic changes in right hand and wrist joints as described above. No acute fracture or dislocation. 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 Reviewed by: Shakir Segundo MD on 03/18/2022 5:14 PM PST Approved by: Shakir Segundo MD on 03/18/2022 5:14 PM PST Station ID: [id number]
== END 2022-03-18 10:43 | disposition home or self-care (01) ==
LOC: DI 10:42
PROVIDERS: ATTEND Physician Assistant Medical
DX: M19.041 Primary osteoarthritis, right hand (principal); M19.031 Primary osteoarthritis, right wrist; M16.0 Bilateral primary osteoarthritis of hip; E03.9 Hypothyroidism, unspecified; I26.99 Other pulmonary embolism without acute cor pulmonale; E11.9 Type 2 diabetes mellitus without complications; R00.2 Palpitations; E53.8 Deficiency of other specified B group vitamins
CPT/HCPCS: 36415; 80053; 82550; 82607; 83036; 83735; 84100; 84439; 84443; 85025; 85379

== ENCOUNTER 2022-03-18 15:02 | Emergency (ER) | payer MEDICARE, OTHER ==
--- NOTE | 2022-03-18 15:38 | ED Physician Documentation ---
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 Starting that 2 months ago she started to need a cane to walk and felt wobbly and disequilibrium. It is associated with daily headaches. She did have a head injury somewhere in there while she was anticoagulated. And reportedly had a CAT scan done on February 09 which was negative. She still feels bad and wobbly though. There is no chest pain or trouble breathing. She is been out of her Xarelto for the last 4 weeks because of pharmacy problem went to her doctor who ordered multiple labs and these are notable for leukocytosis at 12.6 but noting that she has a chronic leukocytosis, D-dimer at greater than 1050, mild renal insufficiency with GFR of 48 which is chronic looking at old labs, hemoglobin A1c of 6.6, improved from prior. Magnesium low at 1.6. Vitamin B-12 low at 153. TSH low with high T4. 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, 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 HEENT: Cataracts - Present Medications Home Medications: Ambulatory Orders Medication Instructions Recorded Confirmed Levothyroxine [Synthroid] 200 mcg PO QDAC 04/24/14 11/28/19 Losartan [Cozaar] 50 mg PO DAILY 04/24/14 11/28/19 Montelukast [Singulair] 10 mg PO DAILY 04/24/14 11/28/19 PARoxetine [Paxil] 60 mg PO DAILY 04/24/14 11/28/19 Pregabalin [Lyrica] 150 mg PO BID 04/24/14 11/28/19 Simvastatin 10 mg PO QPM 04/24/14 11/28/19 Metoprolol Tartrate 50 mg PO BID 02/24/15 11/28/19 metFORMIN [Glucophage] 1,000 mg PO BIDWM 02/24/15 11/28/19 Rivaroxaban [Xarelto] 20 mg PO DAILY 04/04/17 11/28/19 Fluticasone Propionate [Flovent 50 mcg IH BID 05/16/17 05/16/17 Diskus] Pantoprazole Sodium [Protonix] 40 mg PO BID 05/16/17 11/28/19 SITagliptin [Januvia] 100 mg PO DAILY 05/16/17 11/28/19 Levothyroxine Sodium [Synthroid] 150 mcg PO DAILY #90 tablet 03/18/22 Magnesium Oxide 400 mg PO BIDWM #60 tablet 03/18/22 - Allergies Allergies/Adverse Reactions: Allergies Allergy/AdvReac Type Severity Reaction Status Date / Time Iodine and Iodide Containing Allergy Rash Verified 03/18/22 15:23 Produc sulfamethoxazole Allergy Rash Verified 03/18/22 15:23 [From Bactrim] trimethoprim [From Bactrim] Allergy Rash Verified 03/18/22 15:23 Iodinated Contrast Media AdvReac Mild Hives Verified 03/18/22 15:23 cyclobenzaprine HCl * AdvReac Unknown Verified 03/18/22 15:23 [From Flexeril] - Social History Does the pt smoke?: No Smoking Status: Never smoker Does the pt drink ETOH?: No Does the pt have substance abuse?: No - Immunizations Immunizations are current?: Yes PD ED PE NORMAL - Vitals Vital signs reviewed: Yes - General General: Alert and oriented X 3, No acute distress - HEENT HEENT: PERRL, EOMI - Neck Neck: Supple, no meningeal sign, No bony TTP - Cardiac Cardiac: RRR, No murmur - Respiratory Respiratory: No respiratory distress, Clear bilaterally - Abdomen Abdomen: Non tender - Back Back: No CVA TTP, No spinal TTP - Derm Derm: Normal color, Warm and dry - Neuro Neuro: Alert and oriented X 3, No motor deficit, No sensory deficit, Normal speech, Other (Mild disequilibrium with gait and limping a bit because of right hip pain which was previously imaged.) Eye Opening: Spontaneous Motor: Obeys Commands Verbal: Oriented GCS Score: 15 Results - Vitals Vitals: Vital Signs - 24 hr 03/18/22 15:18 Temperature 36.3 C L Heart Rate 91 Respiratory 16 Rate Blood Pressure 143/103 H O2 Saturation 96 Oxygen O2 Source [] Room air O2 Source Room air - Rads (name of study) CT Head - NAD Radiology: Final report received, EMP read indepedently PD Medical Decision Making - ED course ED course: 72-year-old woman has had a disequilibrium for 2 months with other nonspecific symptoms. Seen in the clinic with high D-dimer, evidence of iatrogenic hyperthyroidism and mild hypomagnesemia. There are no symptoms consistent with current PE such as chest pain or trouble breathing. Therefore restarting her DOAC is appropriate without further imaging of that. That said I am concerned about her disequilibrium, recent head injury, and she was anticoagulated so CT imaging of the head will be done. CT of the head was negative. She was administered full dose Lovenox today in the ER and she thinks she will be able to restart her Xarelto tomorrow. We discussed the need to come to the emergency department anytime she has a head injury given her anticoagulated status. Departure - Departure Disposition: 01 Home, Self Care Clinical Impression: Head injury, Dysequilibrium Condition: Good Record reviewed to determine appropriate education?: Yes Instructions: ED Head Injury Closed Prescriptions: Magnesium Oxide 400 mg PO BIDWM #60 tablet Levothyroxine Sodium [Synthroid] 150 mcg PO DAILY #90 tablet Comments: You were seen today for disequilibrium with normal labs from the outpatient setting. We did a CAT scan of your head which looked okay. Given the lack of chest pain or trouble breathing I do not think you have symptoms to suggest PE, but we are restarting anticoagulation since you are to be on anticoagulation for the rest of your life.. Based on the labs that Corinne did, your Synthroid dose is too high and I am lowering it. These numbers should be rechecked again in maybe a couple of months. I am also adding a magnesium supplements.
--- NOTE | 2022-03-18 16:08 | CT Report ---
PROCEDURE: HEAD WO INDICATIONS: head inj TECHNIQUE: Noncontrast 4.5 mm thick angled axial sections acquired from the foramen magnum to the vertex. For r adiation dose reduction, the following was used: automated exposure control, adjustment of mA and/or kV according to patient size. COMPARISON: None. FINDINGS: Image quality: Excellent. The ventricular system and cortical sulci demonstrate atrophy, consistent for patient's stated age. There are areas of hypodensity in the periventricular and subcortical white matter. There is no acut e intra or extra-axial fluid collection. No acute hemorrhage, mass lesion or midline shift. Brainst em is unremarkable. Globes are symmetrical. Sinuses are aerated. Osseous structures are intact. IMPRESSION: 1. No acute intracranial process. 2. Mild to moderate atrophy and chronic microvascular ischemic changes. Reviewed by: Breana Mortensen MD on 03/18/2022 4:07 PM [facility] Approved by: Breana Mortensen MD on 03/18/2022 4:07 PM [facility] Station ID: [id number]
[2022-03-18] MEDS ORDERED: ENOXAPARIN 80 MG/0.8 ML SYRINGE SUBQ STA (16:30)
[2022-03-18 16:52] VITALS: BP 132/69
== END 2022-03-18 16:51 | disposition home or self-care (01) ==
LOC: ED 15:02
DX: S09.90XA Unspecified injury of head, initial encounter (principal); X58.XXXA Exposure to other specified factors, initial encounter; R26.81 Unsteadiness on feet; T45.516A Underdosing of anticoagulants, initial encounter; Z91.138 Patient's unintentional underdosing of medication regimen for other reason; Z86.711 Personal history of pulmonary embolism; M19.041 Primary osteoarthritis, right hand; M19.031 Primary osteoarthritis, right wrist; M16.0 Bilateral primary osteoarthritis of hip; E03.9 Hypothyroidism, unspecified; I26.99 Other pulmonary embolism without acute cor pulmonale; E11.9 Type 2 diabetes mellitus without complications; R00.2 Palpitations; E53.8 Deficiency of other specified B group vitamins
CPT/HCPCS: 36415; 70450; 73130; 73502; 80053; 82550; 82607; 83036; 83735; 84100; 84439; 84443; 85025; 85379; 96372; 99283; 99284; J1650

== ENCOUNTER 2022-04-04 10:44 | Outpatient (CLI) | payer MEDICARE, OTHER ==
[2022-04-04 18:35] LABS: ALBUMIN 3.6 g/dL (3.2-5.5); ALBUMIN/GLOBULIN RATIO 0.9 (1.0-2.2); BILIRUBIN,TOTAL 0.6 mg/dL (0.2-1.0); CALCIUM 9.1 mg/dL (8.5-10.3); CREATININE 1.1 mg/dL (0.4-1.0); MAGNESIUM 1.9 mg/dL (1.7-2.8); PHOSPHORUS 3.5 mg/dL (2.5-4.6); POTASSIUM 4.2 mmol/L (3.5-5.0); TOTAL PROTEIN 7.5 g/dL (6.7-8.2)
[2022-04-04 18:43] LABS: THYROID STIMULATING HORMONE 0.09 uIU/mL (0.34-5.60)
[2022-04-04 19:13] LABS: FREE T4 (FREE THYROXINE) 1.77 ng/dL (0.58-1.64)
== END 2022-04-04 10:45 | disposition home or self-care (01) ==
LOC: LAB.N 10:44
PROVIDERS: ATTEND Physician Assistant Medical
DX: E11.9 Type 2 diabetes mellitus without complications (principal); R00.2 Palpitations; E53.8 Deficiency of other specified B group vitamins; E03.9 Hypothyroidism, unspecified; I26.99 Other pulmonary embolism without acute cor pulmonale
CPT/HCPCS: 36415; 80053; 82550; 82607; 83735; 84100; 84439; 84443; 85379

== ENCOUNTER 2022-04-08 09:10 | Outpatient (CLI) | payer MEDICARE, OTHER ==
[2022-04-08] MEDS ORDERED: iohexoL-300 100 ML VIAL ONE (09:21)
[2022-04-08] MEDS ORDERED: iohexoL-300 100 ML VIAL IVP ONE (09:50)
--- NOTE | 2022-04-08 09:57 | CT Report ---
PROCEDURE: CHEST W INDICATIONS: SOB CONTRAST:100ml omni 300 TECHNIQUE: After the administration of intravenous contrast, 1 mm axial images were acquired from the pulmonary apices through the posterior costophrenic angles. Axial 5 mm soft tissue kernel reconstructions were performed as well as 8 mm axial MIP and coronal and sagittal 5 mm reformations. For radiation dose reduction, the following was used: automated exposure control, adjustment of mA and/or kV according to patient size. COMPARISON: CT chest dated 05/30/[address] angiogram of chest dated 05/30/2014.. FINDINGS: Image quality: Excellent. Lungs and pleura: Mild dependent atelectasis in posterior aspect of bilateral lung montejo are seen. No acute air space opacities. No pleural effusions or pneumothorax. Central and peripheral airways are patent and normal in caliber. Mediastinum: Intraluminal filling defects are noted within the distal right and left main pulmonary a rteries extending to segmental and subsegmental branches of bilateral upper, lower and right middle l obe pulmonary arteries. May pulmonary trunk is enlarged and measures 3.2 cm in diameter. Heart size is enlarged with prominent right ventricle size compared to the left side and slight flattening of th e interventricular septum concerning for early right heart strain. No pericardial effusion. No media stinal or hilar adenopathy by size criteria. Thoracic aorta is normal in size. Esophagus is normal i n caliber. There is a small hiatal hernia. Bones and chest wall: No suspicious bony lesions. No vertebral body compression fractures. No axil carlos or supraclavicular adenopathy by size criteria. The thyroid is normal in size and there are no incidental findings.. Abdomen: Visualized upper abdominal solid organs appear normal. Upper abdominal bowel loops are nor mal in caliber. IMPRESSION: 1. Extensive bilateral pulmonary emboli as described above. There are signs of early right heart stra in as above. 2. Dependent atelectasis in bilateral lower lobes posteriorly. No focal infiltrate, pleural effusion or pneumothorax. Airway is patent. 3. No mediastinal or hilar lymphadenopathy. Patient was sent to the emergency room for further management. CLINICAL RECOMMENDATION STATEMENTS: In patients <35 years with an ITN detected on CT, MRI, or extrathyroidal ultrasound, the Committee re commends further evaluation with dedicated thyroid ultrasound if the nodule is "e1 cm and has no susp icious imaging features, and if the patient has normal life expectancy. In patients "e35 years with an ITN detected on CT, MRI, or extrathyroidal ultrasound, the Committee r ecommends further evaluation with dedicated thyroid ultrasound if the nodule is "e1.5 cm and has no s uspicious imaging features, and if the patient has normal life expectancy. (ACR, 2014) Reviewed by: Shakir Segundo MD on 04/08/2022 9:55 AM PST Approved by: Shakir Segundo MD on 04/08/2022 9:55 AM PST Station ID: [id number]
== END 2022-04-08 09:11 | disposition home or self-care (01) ==
LOC: DI 09:10
PROVIDERS: ATTEND Physician Assistant Medical
DX: R06.02 Shortness of breath (principal); Z86.711 Personal history of pulmonary embolism; I26.99 Other pulmonary embolism without acute cor pulmonale; J98.11 Atelectasis

== ENCOUNTER 2022-04-08 09:48 | Emergency (ER) | payer MEDICARE, OTHER ==
[2022-04-08] MEDS ORDERED: HEPARIN 25000UNITS/500ML (D5W) 25,000 UNIT/500 ML BAG IV SCH (10:00)
[2022-04-08 10:12] LABS: BASOPHILS # (AUTO) 0.1 10^3/uL (0.0-0.1); BASOPHILS % (AUTO) 0.9 %; EOSINOPHILS # (AUTO) 0.5 10^3/uL (0.0-0.7); EOSINOPHILS % (AUTO) 4.4 %; HCT - HEMATOCRIT 35.8 % (37.0-47.0); HGB - HEMOGLOBIN 11.5 g/dL (12.0-16.0); LYMPHOCYTES # (AUTO) 2.9 10^3/uL (1.5-3.5); LYMPHOCYTES % (AUTO) 24.1 %; MEAN CORPUSCULAR HGB CONC 32.1 g/dL (32.0-36.0); MEAN CORPUSCULAR VOLUME 90.2 fL (81.0-99.0); MEAN PLATELET VOLUME 10.2 fL (7.9-10.8); MONOCYTES # (AUTO) 0.8 10^3/uL (0.0-1.0); MONOCYTES % (AUTO) 6.6 %; NEUTROPHILS # (AUTO) 7.5 10^3/uL (1.5-6.6); PLT - PLATELET COUNT 346 10^3/uL (130-450); RED BLOOD COUNT 3.97 10^6/uL (4.20-5.40); RED CELL DISTRIBUTION WIDTH 14.6 % (12.0-15.0); WHITE BLOOD COUNT 11.9 x10^3/uL (4.8-10.8)
[2022-04-08 10:17] LABS: INR 1.6 (0.8-1.2); PT - PROTHROMBIN TIME 17.8 secs (9.9-12.6)
[2022-04-08 10:24] LABS: ALBUMIN 3.4 g/dL (3.2-5.5); ALBUMIN/GLOBULIN RATIO 0.9 (1.0-2.2); ALKALINE PHOSPHATASE 77 IU/L (42-121); ALT ALANINE AMINOTRANSFERASE < 10 IU/L (10-60); AST ASPARTATE AMINOTRANSFERASE 10 IU/L (10-42); BILIRUBIN,TOTAL 0.7 mg/dL (0.2-1.0); BUN - BLOOD UREA NITROGEN 20 mg/dL (6-20); CALCIUM 8.6 mg/dL (8.5-10.3); CARBON DIOXIDE - CO2 21 mmol/L (21-32); CHLORIDE 100 mmol/L (101-111); CREATININE 1.2 mg/dL (0.4-1.0); GFR - MDRD 44 (>89); GLUCOSE 127 mg/dL (70-100); LIPASE 34 U/L (22-51); POTASSIUM 4.2 mmol/L (3.5-5.0); SODIUM 134 mmol/L (135-145); TOTAL PROTEIN 7.3 g/dL (6.7-8.2)
[2022-04-08 10:59] LABS: B. PARAPERTUSSIS- RESP PCR PAN NOT DETECTED; B. PERTUSSIS- RESP PCR PANEL NOT DETECTED; C. PNEUMONIAE- RESP PCR PANEL NOT DETECTED; CORONAVIRUS 229E-RESP PCR NOT DETECTED; CORONAVIRUS HKU1-RESP PCR NOT DETECTED; CORONAVIRUS NL63-RESP PCR NOT DETECTED; CORONAVIRUS OC43-RESP PCR NOT DETECTED; HUMAN METAPNEUMOVIRUS NOT DETECTED; INFLUENZA A- RESP PCR PANEL NOT DETECTED; INFLUENZA B - RESP PCR PANEL NOT DETECTED; M. PNEUMONIAE- RESP PCR PANEL NOT DETECTED; PARAINFLUENZA VIRUS 1 NOT DETECTED; PARAINFLUENZA VIRUS 2 NOT DETECTED; PARAINFLUENZA VIRUS 3 NOT DETECTED; PARAINFLUENZA VIRUS 4 NOT DETECTED; RHINOVIRUS/ENTEROVIRUS NOT DETECTED; RSV- RESP PCR PANEL NOT DETECTED; SARS-CoV-2 -RESP PCR PANEL NOT DETECTED
--- NOTE | 2022-04-08 12:35 | ED Physician Documentation ---
PD HPI DYSPNEA - Stated complaint Stated Complaint: SOA/COUGH - Chief complaint Chief Complaint: Cardiac - History obtained from History obtained from: Patient - Additional information Additional information: The patient comes to the emergency department from outpatient radiology with chief complaint of shortness of breath and multiple PEs found on CT a of the chest. The patient has a history of multiple PEs back in 2014, for which she was admitted at the time, due to hypoxia and clot burden. The patient was ultimately discharged on anticoagulation and followed by pulmonology for about a year. She went through pulmonary rehab and was told she should be on anticoagulation for life, as they really had not found a reason for her clotting. The patient states that about 6 weeks ago, she had abrupt discontinuation of her Xarelto, secondary to her insurance company refusing to authorize a refill. She states that a couple weeks ago, she took a fall and was actually seen here in the emergency department for that. Shortly after the fall, she began to notice cough, shortness of breath, and increasing pain in her right anterior chest wall. The patient denies fevers or chills. She did not feel sick in any other way. She in the meantime is finally able to restart her Xarelto last night after her primary care provider work something out With her insurance company. However, because of the patient's ongoing shortness of breath and chest pain, especially with exertion, the patient was referred to our outpatient radiology department for a CTA of the chest. The radiologist examining the patient CTA did call me to inform me that he was sending the patient over to our ED because she has multiple clots and signs of early right heart strain. The patient states that she has progressively felt little bit worse over the course of her symptoms. She is able to get around on her own but states that she has to stop and rest because of the dyspnea. She has noticed that her left lower extremity has been somewhat painful in the calf and seems to be slightly larger than the other 1. She does note that her symptoms currently are less severe than when she was seen with the PEs the first time, though she does note that it had been longer since the symptoms that started than it has been this time. She denies any other complaints at this time. She states she does not have any other underlying pulmonary are cardiac conditions. She saw pulmonology for about a year after her initial pulmonary emboli and then was finally discharged from their care with instructions for her primary provider to oversee her anticoagulation. Review of Systems Constitutional: reports: Reviewed and negative Eyes: reports: Reviewed and negative Ears: reports: Reviewed and negative Nose: reports: Reviewed and negative Throat: reports: Reviewed and negative Cardiac: reports: Chest pain / pressure Respiratory: reports: Dyspnea, Cough GI: reports: Reviewed and negative : reports: Reviewed and negative Skin: reports: Reviewed and negative Musculoskeletal: reports: Reviewed and negative Neurologic: reports: Reviewed and negative Psychiatric: reports: Reviewed and negative Endocrine: reports: Reviewed and negative Immunocompromised: reports: Reviewed and negative PD PAST MEDICAL HISTORY - Past Medical History Cardiovascular: None Respiratory: None Endocrine/Autoimmune: Type 2 diabetes GI: None : None HEENT: None Psych: Panic attacks Musculoskeletal: None Derm: None - Past Surgical History Past Surgical History: Yes General: Cholecystectomy, Colonoscopy, EGD Ortho: Other /LE[employer] [address] [employer]: Tubal ligation, 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 HEENT: Cataracts - Present Medications Home Medications: Ambulatory Orders Medication Instructions Recorded Confirmed Levothyroxine [Synthroid] 200 mcg PO QDAC 04/24/14 11/28/19 Losartan [Cozaar] 50 mg PO DAILY 04/24/14 11/28/19 Montelukast [Singulair] 10 mg PO DAILY 04/24/14 11/28/19 PARoxetine [Paxil] 60 mg PO DAILY 04/24/14 11/28/19 Pregabalin [Lyrica] 150 mg PO BID 04/24/14 11/28/19 Simvastatin 10 mg PO QPM 04/24/14 11/28/19 Metoprolol Tartrate 50 mg PO BID 02/24/15 11/28/19 metFORMIN [Glucophage] 1,000 mg PO BIDWM 02/24/15 11/28/19 Rivaroxaban [Xarelto] 20 mg PO DAILY 04/04/17 11/28/19 Fluticasone Propionate [Flovent 50 mcg IH BID 05/16/17 05/16/17 Diskus] Pantoprazole Sodium [Protonix] 40 mg PO BID 05/16/17 11/28/19 SITagliptin [Januvia] 100 mg PO DAILY 05/16/17 11/28/19 Levothyroxine Sodium [Synthroid] 150 mcg PO DAILY #90 tablet 03/18/22 Magnesium Oxide 400 mg PO BIDWM #60 tablet 03/18/22 Rivaroxaban [Xarelto] 20 mg PO DAILY #30 tablet 04/08/22 - Allergies Allergies/Adverse Reactions: Allergies Allergy/AdvReac Type Severity Reaction Status Date / Time Iodine and Iodide Containing Allergy Rash Verified 04/08/22 09:56 Produc sulfamethoxazole Allergy Rash Verified 04/08/22 09:56 [From Bactrim] trimethoprim [From Bactrim] Allergy Rash Verified 04/08/22 09:56 Iodinated Contrast Media AdvReac Mild Hives Verified 04/08/22 09:56 cyclobenzaprine HCl * AdvReac Unknown Verified 04/08/22 09:56 [From Flexeril] - Social History Does the pt smoke?: No Smoking Status: Never smoker Does the pt drink ETOH?: No Does the pt have substance abuse?: No - Immunizations Immunizations are current?: Yes PD ED PE NORMAL - Vitals Vital signs reviewed: Yes - General General: Alert and oriented X 3, No acute distress, Well developed/nourished, Other (The patient is well-appearing overall and in no distress.) - HEENT HEENT: Atraumatic, PERRL, EOMI, Moist mucous membranes - Neck Neck: Supple, no meningeal sign - Cardiac Cardiac: RRR, No murmur, Strong equal pulses - Respiratory Respiratory: No respiratory distress, Clear bilaterally - Abdomen Abdomen: Soft, Non tender, Non distended - Derm Derm: Normal color, Warm and dry, No rash - Extremities Extremities: No deformity, No edema, Other (Mild left calf tenderness. No obvious asymmetry of size. No obvious edema.) - Neuro Neuro: Alert and oriented X 3 - Psych Psych: Normal mood, Normal affect Results - Vitals Vitals: Vital Signs - 24 hr 04/08/22 04/08/22 04/08/22 09:52 10:06 10:30 Temperature 36.7 C Heart Rate 81 78 74 Respiratory 16 21 16 Rate Blood Pressure 146/72 H 125/81 H O2 Saturation 100 96 95 04/08/22 12:00 Temperature Heart Rate 77 Respiratory 22 Rate Blood Pressure 131/73 H O2 Saturation 94 Oxygen O2 Source [With Activity] Room air O2 Source Room air - Labs Labs: Laboratory Tests 04/08/22 04/08/22 04/08/22 10:01 10:01 10:01 WBC 11.9 H RBC 3.97 L Hgb 11.5 L Hct 35.8 L MCV 90.2 MCH 29.0 MCHC 32.1 RDW 14.6 Plt Count 346 MPV 10.2 Neut # (Auto) 7.5 H Lymph # (Auto) 2.9 Brantley # (Auto) 0.8 Eos # (Auto) 0.5 Baso # (Auto) 0.1 Absolute Nucleated RBC 0.00 Nucleated RBC % 0.0 PT 17.8 H INR 1.6 H Sodium 134 L Potassium 4.2 Chloride 100 L Carbon Dioxide 21 Anion Gap 13.0 BUN 20 Creatinine 1.2 H Estimated GFR (MDRD) 44 L Glucose 127 H Calcium 8.6 Total Bilirubin 0.7 AST 10 ALT < 10 L Alkaline Phosphatase 77 Total Protein 7.3 Albumin 3.4 Globulin 3.9 Albumin/Globulin Ratio 0.9 L Lipase 34 Nasal Adenovirus (PCR) Nasal B. parapertussis DNA (PCR) Nasal Coronavir 229E PCR Nasal Coronavir HKU1 PCR Nasal Coronavir NL63 PCR Nasal Coronavir OC43 PCR Nasal Enterovir/Rhinovir PCR Nasal Influenza B PCR Nasal Influenza A PCR Nasal Parainfluen 1 PCR Nasal Parainfluen 2 PCR Nasal Parainfluen 3 PCR Nasal Parainfluen 4 PCR Nasal RSV (PCR) Nasal B.pertussis DNA PCR Nasal C.pneumoniae (PCR) Jean Paul Human Metapneumo PCR Nasal M.pneumoniae (PCR) Nasal SARS-CoV-2 (PCR) 04/08/22 10:02 WBC RBC Hgb Hct MCV MCH MCHC RDW Plt Count MPV Neut # (Auto) Lymph # (Auto) Brantley # (Auto) Eos # (Auto) Baso # (Auto) Absolute Nucleated RBC Nucleated RBC % PT INR Sodium Potassium Chloride Carbon Dioxide Anion Gap BUN Creatinine Estimated GFR (MDRD) Glucose Calcium Total Bilirubin AST ALT Alkaline Phosphatase Total Protein Albumin Globulin Albumin/Globulin Ratio Lipase Nasal Adenovirus (PCR) NOT DETECTED Nasal B. parapertussis DNA (PCR) NOT DETECTED Nasal Coronavir 229E PCR NOT DETECTED Nasal Coronavir HKU1 PCR NOT DETECTED Nasal Coronavir NL63 PCR NOT DETECTED Nasal Coronavir OC43 PCR NOT DETECTED Nasal Enterovir/Rhinovir PCR NOT DETECTED Nasal Influenza B PCR NOT DETECTED Nasal Influenza A PCR NOT DETECTED Nasal Parainfluen 1 PCR NOT DETECTED Nasal Parainfluen 2 PCR NOT DETECTED Nasal Parainfluen 3 PCR NOT DETECTED Nasal Parainfluen 4 PCR NOT DETECTED Nasal RSV (PCR) NOT DETECTED Nasal B.pertussis DNA PCR NOT DETECTED Nasal C.pneumoniae (PCR) NOT DETECTED Jean Paul Human Metapneumo PCR NOT DETECTED Nasal M.pneumoniae (PCR) NOT DETECTED Nasal SARS-CoV-2 (PCR) NOT DETECTED PD Medical Decision Making - ED course Complexity details: reviewed old records, reviewed results, re-evaluated patient, considered differential, d/w patient ED course: I did evaluate the patient immediately upon her arrival in the emergency department. IV was placed and the patient was started on heparin. She was in better condition than expected, based on the radiologist report and actually did have a normal heart rate, blood pressure, and oxygen saturation. She did not appear dyspneic in the bed and was speaking in full sentences. Her lung exam was clear. I reviewed her CTA images and ultimately, the radiologist interpretation. The patient did seem to have fairly significant clot burden, but was stable here. Her work-up was as follows: CBC showed a mildly elevated white count at 11.9 and hemoglobin 11.5. Her ER abdominal panel had multiple mild abnormalities without any of significance. Her creatinine was 1.2. Her INR was 1.6. Respiratory panel was negative. All of these diagnostic tests were ordered and interpreted by me. I spoke with Dr. Lebron of pulmonology at [facility], and after reviewing the patient's case, and she stated that she did not feel the patient needed to come in as an inpatient. She had been able to ambulate here and maintained an oxygen saturation of 95% while doing so. She was hemodynamically stable. Dr. Lebron did recommend follow-up in the pulmonology clinic within 2 weeks; however, Dr. Lebron is inpatient only and although she is on-call for the entire pulmonology group, she stated she would not be able to assist in getting this patient appointment, and we would just need to call the pulmonology clinic and see if they would give her an appointment. If not, the patient would have to follow-up up with her primary care PA and have her write a referral. We did speak with the pulmonology clinic, who stated that it has been too long since the patient had been a patient there and so they would have to really have her rereferred. I discussed all of this with the patient. She states she thinks she can see your PA Corinne Munoz pretty quickly and that they can get a referral off. I have discussed with the patient that if there is ever a lapse in her Xarelto again, she needs to make sure her PA puts her on some alternate anticoagulation, even Coumadin, temporarily. We have discussed the usual indications for return, specifically: increasing shortness of breath or chest pain, fever, or syncope. I have given the patient a bridging's prescription for her Xarelto as she has only a little bit left and is waiting for her 3-month supply to come in the mail. Departure - Departure Disposition: 01 Home, Self Care Clinical Impression: Pulmonary emboli Qualifiers: Pulmonary embolism type: multiple subsegmental (without acute cor pulmonale) Qualified Code(s): I26.94 - Multiple subsegmental pulmonary emboli without acute cor pulmonale Instructions: Embolism Pulmonary Dc Prescriptions: Rivaroxaban [Xarelto] 20 mg PO DAILY #30 tablet Comments: The CT scan that was performed in outpatient radiology today shows multiple pulmonary emboli which appear to be new since your last CT back in 2014. These do involve the vessels in both lungs, and appear to be placing a little bit of strain on your right heart. However, your vital signs are stable and you have had symptoms now for the nearly 2 weeks. Your case has been reviewed with the on-call dialysis technician, Dr. Lebron, at [facility], and she does not feel that you need admission to the hospital at this time. Your oxygen saturations have been good, even after getting up and walking around and you are otherwise stable. However, she would like you to follow-up in the pulmonology clinic again. We have reached out to the pulmonology clinic, but because it has been some years since your last seen there, they are unable to give you an appointment until you go through your primary doctor to obtain a referral. Please call your doctor's office immediately to get this done so that you can follow-up with soon as possible with the pulmonology clinic. In the meantime, please take your Xarelto every day to avoid any further development of clot burden. If there is any further issue with your insurance company and you are unable to get the Xarelto, please ask your primary provider about being on something else in the meantime so you do not have a lapse in your anticoagulation, considering what has happened this time. If you begin to develop increasingly severe chest pain and shortness of breath, or if you develop fevers or fainting episodes, please return to the emergency department immediately.
[2022-04-08 13:14] VITALS: BP 133/85
== END 2022-04-08 13:30 | disposition home or self-care (01) ==
LOC: ED 09:48
DX: I26.94 Multiple subsegmental thrombotic pulmonary emboli without acute cor pulmonale (principal); R06.02 Shortness of breath; Z86.711 Personal history of pulmonary embolism; J98.11 Atelectasis; Z20.822 Contact with and (suspected) exposure to COVID-19
CPT/HCPCS: 36415; 71260; 80053; 83690; 85025; 85610; 87633; 93005; 96365; 96366; 96376; 99284; Q9967

== ENCOUNTER 2022-04-19 13:20 | Outpatient (CLI) | payer MEDICARE, OTHER | END 2022-04-19 13:21 | disposition home or self-care (01) | LOC: MAC.MOP 13:20 | PROVIDERS: ATTEND Physician Assistant Medical | DX: R00.2 Palpitations (principal) | CPT/HCPCS: 93246 ==

== ENCOUNTER 2022-05-10 10:09 | Outpatient (CLI) | payer MEDICARE, OTHER ==
[2022-05-10 13:03] LABS: THYROID STIMULATING HORMONE < 0.08 uIU/mL (0.34-5.60)
[2022-05-10 13:37] LABS: FREE T4 (FREE THYROXINE) 1.59 ng/dL (0.58-1.64)
== END 2022-05-10 10:10 | disposition home or self-care (01) ==
LOC: LAB.N 10:09
PROVIDERS: ATTEND Physician Assistant Medical
DX: E03.9 Hypothyroidism, unspecified (principal)
CPT/HCPCS: 36415; 84439; 84443

== ENCOUNTER 2022-05-20 10:30 | Outpatient (CLI) | payer MEDICARE, OTHER | END 2022-05-20 10:31 | disposition home or self-care (01) | LOC: MAC.INF 10:30 | PROVIDERS: ATTEND Physician Assistant Medical | DX: I47.1 Supraventricular tachycardia (principal); I49.1 Atrial premature depolarization; I49.3 Ventricular premature depolarization | CPT/HCPCS: 93248 ==

== ENCOUNTER 2022-06-07 10:29 | Outpatient (CLI) | payer MEDICARE, OTHER ==
[2022-06-07 12:42] LABS: ALBUMIN 3.7 g/dL (3.2-5.5); ALBUMIN/GLOBULIN RATIO 1.1 (1.0-2.2); BILIRUBIN,TOTAL 0.5 mg/dL (0.2-1.0); CALCIUM 8.9 mg/dL (8.5-10.3); CREATININE 1.1 mg/dL (0.4-1.0); POTASSIUM 4.2 mmol/L (3.5-5.0); TOTAL PROTEIN 7.1 g/dL (6.7-8.2)
[2022-06-07 12:53] LABS: ESTIMATED AVERAGE GLUCOSE 131 mg/dL (70-100); HEMOGLOBIN A1c% 6.2 % (4.27-6.07)
[2022-06-07 12:55] LABS: THYROID STIMULATING HORMONE 0.02 uIU/mL (0.34-5.60)
[2022-06-07 13:36] LABS: FREE T4 (FREE THYROXINE) 1.44 ng/dL (0.58-1.64)
== END 2022-06-07 10:30 | disposition home or self-care (01) ==
LOC: LAB.N 10:29
PROVIDERS: ATTEND Physician Assistant Medical
DX: E11.9 Type 2 diabetes mellitus without complications (principal); E03.9 Hypothyroidism, unspecified
CPT/HCPCS: 36415; 80053; 83036; 84439; 84443

== ENCOUNTER 2022-06-15 14:55 | Outpatient (CLI) | payer MEDICARE, OTHER | END 2022-06-15 14:56 | disposition home or self-care (01) | LOC: DI 14:55 | PROVIDERS: ATTEND Physician Assistant Medical | DX: I26.99 Other pulmonary embolism without acute cor pulmonale (principal); I07.1 Rheumatic tricuspid insufficiency | CPT/HCPCS: 93306 ==

== ENCOUNTER 2022-07-02 08:49 | Outpatient (CLI) | payer MEDICARE, OTHER ==
--- NOTE | 2022-07-02 19:00 | CT Report ---
PROCEDURE: CT sinus without contrast INDICATIONS: SINUSITIS TECHNIQUE: Noncontrast 3.0 mm axial images acquired from the frontal sinuses to the mid-sella, with coronal and sagittal reformats. For radiation dose reduction, the following was used: automated exposure control , adjustment of mA and/or kV according to patient size. COMPARISON: None. FINDINGS: Image quality: Excellent. Maxillary Sinuses: No bony remodeling or destruction. Sinuses are clear. Ethmoid Air Cells: No bony remodeling or destruction. Sinuses are clear. Sphenoid Sinuses: No bony remodeling or destruction. Sinuses are clear. Frontal Sinuses: No bony remodeling or destruction. Sinuses are clear. Ostiomeatal Complexes: Ostiomeatal complexes are patent. No Samuel cells. Miscellaneous: Visualized intra-orbital contents are normal. No mildred bullosa. No nasal septal deviation. IMPRESSION: Unremarkable CT of the paranasal sinuses Reviewed by: Nathan Olvera MD on 07/02/2022 5:59 PM [facility] Approved by: Nathan Olvera MD on 07/02/2022 5:59 PM [facility] Station ID: [id number]
== END 2022-07-02 08:50 | disposition home or self-care (01) ==
LOC: DI 08:49
PROVIDERS: ATTEND Physician Assistant Medical
DX: R05.9 Cough, unspecified (principal); J01.90 Acute sinusitis, unspecified

== ENCOUNTER 2022-10-03 08:52 | Outpatient (CLI) | payer MEDICARE, OTHER ==
[2022-10-03 13:07] LABS: ESTIMATED AVERAGE GLUCOSE 183 mg/dL (70-100)
[2022-10-03 13:10] LABS: ALBUMIN/GLOBULIN RATIO 1.3 (1.0-2.2); ALKALINE PHOSPHATASE 77 IU/L (42-121); ALT ALANINE AMINOTRANSFERASE 11 IU/L (10-60); AST ASPARTATE AMINOTRANSFERASE 10 IU/L (10-42); BILIRUBIN,TOTAL 0.7 mg/dL (0.2-1.0); BUN - BLOOD UREA NITROGEN 19 mg/dL (6-20); CALCIUM 8.9 mg/dL (8.5-10.3); CARBON DIOXIDE - CO2 26 mmol/L (21-32); CHLORIDE 104 mmol/L (101-111); CHOLESTEROL 163 mg/dL; CREATININE 1.1 mg/dL (0.6-1.3); GFR - MDRD 49 (>89); GLUCOSE 223 mg/dL (74-104); HDL CHOLESTEROL 54 mg/dL; LDL CHOLESTEROL,CALCULATED 69 mg/dL; LDL/HDL RATIO 1.3 (<4.4); POTASSIUM 3.8 mmol/L (3.5-4.5); SODIUM 139 mmol/L (135-145); TOTAL PROTEIN 7.1 g/dL (6.4-8.9); TRIGLYCERIDES 199 mg/dL (48-352); VLDL CHOLESTEROL 40 mg/dL
[2022-10-04 15:06] LABS: THYROID STIMULATING HORMONE 0.16 uIU/mL (0.34-5.60)
== END 2022-10-03 08:53 | disposition home or self-care (01) ==
LOC: LAB.N 08:52
PROVIDERS: ATTEND Physician Assistant Medical
DX: E11.9 Type 2 diabetes mellitus without complications (principal); E03.9 Hypothyroidism, unspecified
CPT/HCPCS: 36415; 80053; 80061; 83036; 83721; 84439; 84443

== ENCOUNTER 2023-01-09 11:20 | Outpatient (CLI) | payer MEDICARE, OTHER | END 2023-01-09 11:21 | disposition home or self-care (01) | LOC: LAB.N 11:20 | PROVIDERS: ATTEND Physician Assistant Medical | DX: Z53.9 Procedure and treatment not carried out, unspecified reason (principal) ==

== ENCOUNTER 2023-04-07 09:23 | Outpatient (CLI) | payer MEDICARE, OTHER ==
[2023-04-07 12:14] LABS: ESTIMATED AVERAGE GLUCOSE 180 mg/dL (70-100); HEMOGLOBIN A1c% 7.9 % (4.27-6.07)
[2023-04-07 12:25] LABS: CALCIUM 9.3 mg/dL (8.5-10.3); CREATININE 1.1 mg/dL (0.6-1.3); POTASSIUM 4.1 mmol/L (3.5-4.5)
== END 2023-04-07 09:24 | disposition home or self-care (01) ==
LOC: LAB.N 09:23
PROVIDERS: ATTEND Physician Assistant Medical
DX: E11.9 Type 2 diabetes mellitus without complications (principal)
CPT/HCPCS: 36415; 80048; 83036

== ENCOUNTER 2023-05-23 10:15 | Outpatient (CLI) | payer MEDICARE, OTHER ==
[2023-05-23 12:49] LABS: CALCIUM 9.3 mg/dL (8.5-10.3); CREATININE 1.2 mg/dL (0.6-1.3)
[2023-05-23 12:52] LABS: THYROID STIMULATING HORMONE 0.73 uIU/mL (0.34-5.60)
[2023-05-23 13:01] LABS: ESTIMATED AVERAGE GLUCOSE 163 mg/dL (70-100); HEMOGLOBIN A1c% 7.3 % (4.27-6.07)
== END 2023-05-23 10:16 | disposition home or self-care (01) ==
LOC: LAB.N 10:15
PROVIDERS: ATTEND Physician Assistant Medical
DX: E11.9 Type 2 diabetes mellitus without complications (principal); E03.9 Hypothyroidism, unspecified
CPT/HCPCS: 36415; 80048; 83036; 84443

== ENCOUNTER 2024-06-13 19:50 | Inpatient (IN) ==
--- NOTE | 2024-06-13 20:14 | ED Physician Documentation ---
PD HPI ALTERED MENTAL STATUS Stated complaint Stated Complaint: LETHARGIC, SICK Chief complaint Chief Complaint: Fever History obtained from History obtained from: Patient and Family (sister) History of Present Illness Timing - onset: How many days ago (3-4) Additional information Additional information: Kayla Bartlett is a 74-year-old female with a history of pulmonary embolism who is on Xarelto and she lives in [place] with her son Don and they have recently moved into a new apartment. She takes care of of Don who has autism, developmental delay and type 1 diabetes. She has a sister who talks to her daily her sister is come from [place] to visit yesterday and found that the patient was unable to get up out of bed and found that her bed was actually on the floor. The apartment was apparently in disarray and the sister took her sister to the hotel to clean her up and went back to her apartment to clean up the apartment. She got a new bed and when she went back to the hotel she found that her sister was less responsive and weak. She called the ambulance. The patient is unable to provide significant history. [place] Coma Scale Assess Eye opening: To Voice Verbal response: Confused Motor response: Obeys Commands Total score: 13 Review of Systems Status of ROS: unobtainable due to medical condition Meds/Allgy Home Medications Ambulatory Orders Medication Instructions Recorded Confirmed simvastatin 10 mg tablet 10 mg PO QPM 04/24/14 06/13/24 metformin 500 mg tablet 1,000 mg PO BIDWM 02/24/15 06/13/24 rivaroxaban 20 mg tablet (Xarelto) 20 mg PO DAILY 04/04/17 06/13/24 fluticasone propionate 50 50 mcg IH BID 05/16/17 05/16/17 mcg/actuation blister powder for inhalation (Flovent Diskus) rivaroxaban 20 mg tablet (Xarelto) 20 mg PO DAILY #30 tabs 04/08/22 06/13/24 paroxetine HCl 20 mg tablet See Rx Instructions .Route 03/19/24 06/13/24 .COMPLEX #90 tabs tolterodine 4 mg capsule,extended See Rx Instructions .Route 03/19/24 06/13/24 release 24 hr .COMPLEX #30 caps pantoprazole 40 mg granules 40 mg PO BID #90 ea 03/20/24 06/13/24 delayed-release for susp in packet (Protonix) metoprolol tartrate 25 mg tablet 50 mg (2 x 25 mg) PO BID #180 tabs 05/29/24 06/13/24 acyclovir 5 % topical cream 1 applic topical 5XD 06/06/24 06/13/24 albuterol sulfate 90 mcg/actuation 2 inh inhalation Q6H PRN SOA 06/06/24 06/13/24 breath activated powder inhaler (ProAir RespiClick) blood sugar diagnostic [OneTouch 06/06/24 Verio test strips] bupropion HCl 150 mg 24 hr tablet, 150 mg PO QDAY 06/06/24 06/13/24 extended release (Wellbutrin XL) dulaglutide 0.75 mg/0.5 mL 0.75 mg subcut QWEEK 06/06/24 06/13/24 subcutaneous pen injector ([employer]) ketoconazole 2 % topical cream 1 applic topical BID 06/06/24 06/13/24 levothyroxine 137 mcg tablet 137 mcg PO QDAY 06/06/24 06/13/24 (Synthroid) syringe with needle 3 mL 25 gauge 06/06/24 x 1" (Monoject 3cc Syringe) Allergies Allergies Allergy/AdvReac Type Severity Reaction Status Date / Time cyclobenzaprine (From Allergy Severe Unknown Verified 06/06/24 05:26 Flexeril) Iodine and Iodide Containing Allergy Severe Rash Verified 06/06/24 05:26 Produc sulfamethoxazole (From Allergy Severe Rash Verified 06/06/24 05:26 Bactrim) trimethoprim (From Bactrim) Allergy Rash Verified 04/08/22 09:56 Iodinated Contrast Media AdvReac Mild Hives Verified 04/08/22 09:56 cyclobenzaprine HCl * (From AdvReac Unknown Verified 04/08/22 09:56 Flexeril) PFSH Active Problems All Active Problems (Updated 06/13/24 @ 21:44 by Neftali Thornton MD) Dehydration (Acute) Acute UTI (Acute) Sepsis (Acute) Allergic rhinitis, seasonal (Acute) GERD (gastroesophageal reflux disease) (Acute) Depression (Acute) Peripheral neuropathy (Acute) Cough (Acute) Urge incontinence (Acute) Herpes labialis (Acute) Rheumatoid arthritis (Acute) Bowel incontinence (Acute) Chronic low back pain (Acute) Thyromegaly (Acute) [place]IL[place] (obstructive sleep apnea) (Acute) Recurrent UTI (Acute) Actinic keratosis (Acute) Chronic diarrhea (Acute) Screening for malignant neoplasm of colon (Acute) Visual hallucinations (Acute) Mixed headache (Acute) B12 deficiency (Acute) Leukocytosis (Acute) Chronic renal insufficiency (Acute) Tremor, essential (Acute) Abnormal mammogram of right breast (Acute) Abnormal mammogram of left breast (Acute) Hand pain, right (Acute) Hip pain, right (Acute) Palpitations (Acute) Frequent falls (Acute) Physical deconditioning (Acute) SOB (shortness of breath) (Acute) Sinusitis, acute (Acute) Hallucinations (Acute) Ankle pain, right (Acute) Cerumen impaction (Acute) Metatarsal bone fracture (Acute) C. difficile diarrhea (Acute) Adrenal mass (Acute) Hypothyroidism (Acute) Asthma (Acute) Hypertension (Acute) Hyperlipidemia (Acute) Diabetes (Acute) Pulmonary emboli (Acute) Hypoxia (Acute) Dyspnea (Acute) Chest pain (Acute) Social History Social History (Updated 06/13/24 @ 21:02 by Doris Patricio RN) Smoking Status: Never smoker Do you dip or chew tobacco?: No Do you vape?: No Living arrangement: At home Living Condition: With spouse/s.o. Support Person: Yes Relationship: Level: Independent Home Mobility Equipment: Cane and Walker Do you feel safe in your home environment?: Yes Suffered physical, verbal, emotional, or financial abuse?: No History of Abuse: No Exam Exam Vital Signs: Vital Signs x48h Temp Pulse Resp BP Pulse Ox O2 Flow Rate 06/13/24 22:51 38.2 C H 89 19 95/52 L 99 2 06/13/24 22:18 38.7 C H 100 19 108/57 L 99 2 06/13/24 22:01 98 22 116/57 L 99 2 06/13/24 21:45 38.8 C H 97 18 115/55 L 99 2 06/13/24 21:30 39.9 C H 114 H 20 116/61 99 2 06/13/24 21:19 107 H 22 130/59 L 95 3 06/13/24 21:07 40 C H 113 H 28 H 130/59 L 3 06/13/24 20:58 40.1 C H 115 H 21 129/64 99 2 06/13/24 20:22 40 C H 117 H 20 131/67 H 96 06/13/24 20:09 101 C H 118 H 29 H 137/75 H 95 2 06/13/24 20:07 101 C H 117 H 19 125/72 95 2 06/13/24 19:54 117 H 24 137/75 H 93 74-year-old female who opens her eyes to voice attempts to respond appears to have parched mucous membranes she is lying supine on a gurney. She is febrile tachycardic tachypneic hypertensive and hypoxic. She appears to be able to respond with 1-2 words on initial evaluation. HENMT normocephalic and head/scalp atraumatic Eyes PERRL and EOMs intact bilaterally Neck/C-Spine visual inspection normal and trachea midline Chest inspection of chest normal Respiratory breath sounds equal bilaterally With assistance to sit up I was able to examine the patient's lungs she has diminished breath sounds no focal rhonchi Cardiovascular There is a tachycardic rate of 120 that is regular and there is a mild systolic murmur. 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 Skin skin color normal and no rash Results Vitals Vitals: Vital Signs - 24 hr 06/13/24 19:54 06/13/24 20:07 06/13/24 20:09 Temperature 101 C H 101 C H Temperature Source Oral Oral Pulse Rate 117 H 117 H 118 H Respiratory Rate 24 19 29 H Blood Pressure 137/75 H 125/72 137/75 H O2 Saturation 93 95 95 O2 Source Nasal cannula Nasal cannula If not protocol: Oxygen Flow, liters/minute 2 2 Pain Intensity 6 06/13/24 20:22 06/13/24 20:58 06/13/24 21:07 Temperature 40 C H 40.1 C H 40 C H Temperature Source Core Core Core Pulse Rate 117 H 115 H 113 H Respiratory Rate 20 21 28 H Blood Pressure 131/67 H 129/64 130/59 L O2 Saturation 96 99 O2 Source Nasal cannula Nasal cannula Nasal cannula If not protocol: Oxygen Flow, liters/minute 2 3 Pain Intensity 0 06/13/24 21:19 06/13/24 21:30 06/13/24 21:45 Temperature 39.9 C H 38.8 C H Temperature Source Core Pulse Rate 107 H 114 H 97 Respiratory Rate 22 20 18 Blood Pressure 130/59 L 116/61 115/55 L O2 Saturation 95 99 99 O2 Source Nasal cannula Nasal cannula Nasal cannula If not protocol: Oxygen Flow, liters/minute 3 2 2 Pain Intensity 06/13/24 22:01 06/13/24 22:18 06/13/24 22:51 Temperature 38.7 C H 38.2 C H Temperature Source Core Core Pulse Rate 98 100 89 Respiratory Rate 22 19 19 Blood Pressure 116/57 L 108/57 L 95/52 L O2 Saturation 99 99 99 O2 Source Nasal cannula Nasal cannula Nasal cannula If not protocol: Oxygen Flow, liters/minute 2 2 2 Pain Intensity 06/13/24 23:07 06/13/24 23:31 Temperature 38 C H Temperature Source Core Pulse Rate 97 89 Respiratory Rate 22 20 Blood Pressure 103/54 L 107/52 L O2 Saturation 97 99 O2 Source Nasal cannula Nasal cannula If not protocol: Oxygen Flow, liters/minute 2 2 Pain Intensity Oxygen O2 Source [With Activity] Room air O2 Source Nasal cannula EKG (time done) 1952: EKG releavant findings:: EKG personally interpreted by author of this note. Relevant findings are: Rate: Rate (enter#) (118) Rhythm: Sinus tachycardia QRS: LVH Ischemia: Q waves (inferior) Compare to prior EKG: Changed from prior EKG ([facility] 04-08-22 rate is faster) Computer interpretation: Agree with computer Labs Labs: Microbiology 06/13/24 20:31 Urine Culture - Preliminary Urine,Random Laboratory Tests 06/13/24 06/13/24 06/13/24 20:24 20:31 21:00 WBC 18.9 H RBC 4.43 Hgb 12.0 Hct 37.0 MCV 83.5 MCH 27.1 MCHC 32.4 RDW 15.5 H Plt Count 265 MPV 11.0 H Neut # (Auto) 16.6 H Lymph # (Auto) 0.7 L Mor[place] # (Auto) 0.7 Eos # (Auto) 0.1 Baso # (Auto) 0.1 Absolute Nucleated RBC 0.00 Band Neuts % (Manual) Not Reportable Abnorm Lymph % (Manual) Not Reportable Nucleated RBC % 0.0 Neutrophils # (Manual) Not Reportable Lymphocytes # (Manual) Not Reportable Monocytes # (Manual) Not Reportable Eosinophils # (Manual) Not Reportable Basophils # (Manual) Not Reportable Differential Comment MANUAL=AUTO DIFF Manual Slide Review Indicated Platelet Estimate NORMAL (130-450,000) Platelet Morphology NORMAL APPEARANCE RBC Morph Micro Appear NORMAL APPEARANCE Sodium 127 L Potassium 4.7 H Chloride 97 L Carbon Dioxide 18 L Anion Gap 12.0 BUN 33 H Creatinine 2.1 H Estimated GFR (MDRD) 23 L Glucose 166 H Lactic Acid 1.4 Calcium 7.9 L Total Bilirubin 1.4 H AST 24 ALT 19 Alkaline Phosphatase 196 H Total Protein 6.9 Albumin 3.3 Globulin 3.6 Albumin/Globulin Ratio 0.9 L Urine Color YELLOW Urine Clarity CLOUDY Urine pH 6.5 Ur Specific [place] 1.015 Urine Protein 100 H Urine Glucose (UA) NEGATIVE Urine Ketones 15 H Urine Occult Blood SMALL H Urine Nitrite NEGATIVE Urine Bilirubin SMALL H Urine Urobilinogen 2 H Ur Leukocyte Esterase LARGE H Urine RBC 6-10 H Urine WBC >25 H Urine WBC Clumps PRESENT Ur Squamous Epith Cells RARE Squamous Urine Bacteria Many H Urine Culture Comments INDICATED Nasal Adenovirus (PCR) NOT DETECTED Nasal B. parapertussis DNA (PCR) NOT DETECTED Nasal Coronavir 229E PCR NOT DETECTED Nasal Coronavir HKU1 PCR NOT DETECTED Nasal Coronavir NL63 PCR NOT DETECTED Nasal Coronavir OC43 PCR NOT DETECTED Nasal Enterovir/Rhinovir PCR NOT DETECTED Nasal Influenza B PCR NOT DETECTED Nasal Influenza A PCR NOT DETECTED Nasal Parainfluen 1 PCR NOT DETECTED Nasal Parainfluen 2 PCR NOT DETECTED Nasal Parainfluen 3 PCR NOT DETECTED Nasal Parainfluen 4 PCR NOT DETECTED Nasal RSV (PCR) NOT DETECTED Nasal B.pertussis DNA PCR NOT DETECTED Nasal C.pneumoniae (PCR) NOT DETECTED Jean Paul Human Metapneumo PCR NOT DETECTED Nasal M.pneumoniae (PCR) NOT DETECTED Nasal SARS-CoV-2 (PCR) NOT DETECTED Rads (name of study) Chest: Relevant Findings:: Final report received and EMP independent interpretation of test (normal sized heart, central congestion, elevated R hemidiaphragm, not CHF. ) Interpretation: Impression: Bilateral perihilar interstitial thickening. In combination with central venous congestion, CHF or volume overload is possible. Differential diagnosis includes atypical pneumonia and bronchitis. CT head without: Relevant Findings:: Final report received and EMP independent interpretation of test (no obvious hemorrhage) Interpretation: No acute intracranial pathology. Procedures IVC sono (time) 2000: Bedside IVC sono: IVC measures (cm) (0.82), IVC collapsed c insp (cm) (complete) and Dehydration (est 2L + deficit) PD Medical Decision Making ED course Complexity details: reviewed old records, reviewed results, re-evaluated patient, considered differential, d/w patient and d/w family Reviewed Lab Results: We reviewed a complete blood count showing an elevated white blood cell count of 18.9 with a normal hemoglobin and hematocrit at 12 and 37 platelets are normal at 265,000 differential favors neutrophils. Chemistries show a serum sodium of 127 potassium of 4.7 chloride of 97 bicarb of 18 BUN is elevated at 33 and creatinine elevated at 2.1 all of these values are off from her prior 1 year ago. Calcium is low at 7.9 liver functions are normal with exception of alkaline phosphatase is which is elevated at 196. She has not had a elevation of alkaline phosphatase previously. Urinalysis done today shows small occult blood large leukocyte esterase 6-10 red blood cells and greater than 25 white blood cells many bacteria and a mixed grade for culture. This is from a catheterized specimen. I interpret use laboratory studies to suggest the patient has an overwhelming infection related to the urine. She did have a lactate of 1.4. ED course: 74-year-old female presents to the emergency department appearing septic with a fever and altered level of consciousness she is on Xarelto a CT of the head was done which was unremarkable. She was less responsive on arrival to the Emergency Department I interrogated the inferior vena cava with POCUS found she had a greater than 2 L deficit and IV fluids were begun a Nichols catheter was placed specimens were obtained a gram of Rocephin was infused and the patient had some improvement in her level of consciousness. She required a dose of IV tylenol for fever up to 39.9. She will need admission to the hospital continued fluid support and a social work consult for an adequate disposition. Discharge Plan Discharge Patient Disposition: [facility] DC/Xfer Condition: Serious Clinical Impression: Sepsis, Acute UTI, Dehydration Interventions: ED Admission Assessment Last Done: 06/14/24 01:40
[2024-06-13] MEDS ORDERED: cefTRIAXone 1 GM VIAL ONE (20:28)
[2024-06-13] MEDS: SODIUM CHLORIDE 0.9% 1,000 ML IV STA (20:31)
[2024-06-13] MEDS: cefTRIAXone 1 GM in SODIUM CHLORIDE 0.9% MINIBAG 100 ML IV STA (20:31)
[2024-06-13 20:38] LABS: BASOPHILS # (AUTO) 0.1 10^3/uL (0.0-0.1); BASOPHILS % (AUTO) 0.6 %; EOSINOPHILS # (AUTO) 0.1 10^3/uL (0.0-0.7); EOSINOPHILS % (AUTO) 0.3 %; LYMPHOCYTES # (AUTO) 0.7 10^3/uL (1.5-3.5); LYMPHOCYTES % (AUTO) 3.6 %; MEAN CORPUSCULAR HEMOGLOBIN 27.1 pg (27.0-31.0); MEAN CORPUSCULAR HGB CONC 32.4 g/dL (32.0-36.0); MEAN CORPUSCULAR VOLUME 83.5 fL (81.0-99.0); MONOCYTES # (AUTO) 0.7 10^3/uL (0.0-1.0); MONOCYTES % (AUTO) 3.4 %; NEUTROPHILS # (AUTO) 16.6 10^3/uL (1.5-6.6); NEUTROPHILS % (AUTO) 87.8 %; PLT - PLATELET COUNT 265 10^3/uL (130-450); RED BLOOD COUNT 4.43 10^6/uL (4.20-5.40); RED CELL DISTRIBUTION WIDTH 15.5 % (12.0-15.0); WHITE BLOOD COUNT 18.9 x10^3/uL (4.8-10.8)
[2024-06-13 20:45] LABS: BILIRUBIN,URINE SMALL (NEGATIVE); GLUCOSE, URINE (UA) NEGATIVE (NEGATIVE); KETONES,URINE (UA) 15 mg/dL (NEGATIVE); LEUKOCYTE ESTERASE, URINE LARGE (NEGATIVE); NITRITE,URINE NEGATIVE (NEGATIVE); OCCULT BLOOD,URINE SMALL (NEGATIVE); PH,URINE 6.5 PH (5.0-7.5); PROTEIN,URINE 100 mg/dL (NEGATIVE); UROBILINOGEN,URINE 2 E.U./dL (NORMAL)
[2024-06-13 20:48] LABS: SLIDE REVIEW? Indicated
[2024-06-13] MEDS: ACETAMINOPHEN 1,000 MG/100 ML 1,000 MG/100 ML BAG IV ONE (20:57)
[2024-06-13 21:05] LABS: BACTERIA,URINE Many /HPF (None Seen); CLARITY,URINE CLOUDY (CLEAR); SQUAMOUS EPITHELIAL CELL,UR RARE Squamous (<= Few); WBC CLUMPS,URINE PRESENT; WBC,URINE >25 /HPF (0-5)
[2024-06-13 21:10] LABS: ALBUMIN 3.3 g/dL (3.2-5.5); ALBUMIN/GLOBULIN RATIO 0.9 (1.0-2.2); BILIRUBIN,TOTAL 1.4 mg/dL (0.2-1.0); CALCIUM 7.9 mg/dL (8.5-10.3); CREATININE 2.1 mg/dL (0.6-1.3); POTASSIUM 4.7 mmol/L (3.5-4.5); TOTAL PROTEIN 6.9 g/dL (6.4-8.9)
[2024-06-13 21:13] LABS: DIFFERENTIAL COMMENT MANUAL=AUTO DIFF; PLATELET ESTIMATE, MANUAL NORMAL (130-450,000) (NORMAL); PLATELET MORPHOLOGY NORMAL APPEARANCE (NORMAL); RBC MORPHOLOGY (MULTIPLE) NORMAL APPEARANCE (NORMAL)
--- NOTE | 2024-06-13 21:26 | XRAY Report ---
PROCEDURE: XR Chest 1V INDICATIONS: Sepsis TECHNIQUE: One view of the chest was acquired. COMPARISON: None. FINDINGS: Surgical changes and devices: None. Lungs and pleura: Bilateral perihilar interstitial thickening. Asymmetric right hemidiaphragm elevat ion. Platelike opacities in the retrocardiac region. No significant pleural effusion or pneumothorax. Mediastinum: Central vascular prominence. Normal cardiac size and aortic contour. Bones and chest wall: No suspicious bony lesions. Overlying soft tissues appear unremarkable. IMPRESSION: Bilateral perihilar interstitial thickening. In combination with central venous congestion, CHF or vo lume overload is possible. Differential diagnosis includes atypical pneumonia and bronchitis. Reviewed by: Nicole Nguyen MD on 06/13/2024 9:24 PM PDT Approved by: Nicole Nguyen MD on 06/13/2024 9:24 PM PDT Station ID: [id number]
--- NOTE | 2024-06-13 21:47 | CT Report ---
PROCEDURE: CT Head WO INDICATIONS: altered mental status on xaralto TECHNIQUE: Noncontrast 4.5 mm thick angled axial sections acquired from the foramen magnum to the vertex. For r adiation dose reduction, the following was used: automated exposure control, adjustment of mA and/or kV according to patient size. COMPARISON: 03/18/2022 FINDINGS: Image quality: Excellent. CSF spaces: Basal cisterns are patent. No extra-axial fluid collections. Ventricles are normal in size and shape. Brain: No midline shift. No intracranial masses or hemorrhage. Donis-white matter interface is norm al. Skull and face: Calvarium and visualized facial bones are intact, without suspicious lesions. Sinuses: Visualized sinuses and mastoids are clear. IMPRESSION: No acute intracranial pathology. Reviewed by: Nicole Nguyen MD on 06/13/2024 9:46 PM PDT Approved by: Nicole Nguyen MD on 06/13/2024 9:46 PM PDT Station ID: [id number]
[2024-06-13 22:17] LABS: B. PARAPERTUSSIS- RESP PCR PAN NOT DETECTED; B. PERTUSSIS- RESP PCR PANEL NOT DETECTED; C. PNEUMONIAE- RESP PCR PANEL NOT DETECTED; CORONAVIRUS 229E-RESP PCR NOT DETECTED; CORONAVIRUS HKU1-RESP PCR NOT DETECTED; CORONAVIRUS NL63-RESP PCR NOT DETECTED; CORONAVIRUS OC43-RESP PCR NOT DETECTED; HUMAN METAPNEUMOVIRUS NOT DETECTED; INFLUENZA A- RESP PCR PANEL NOT DETECTED; INFLUENZA B - RESP PCR PANEL NOT DETECTED; M. PNEUMONIAE- RESP PCR PANEL NOT DETECTED; PARAINFLUENZA VIRUS 1 NOT DETECTED; PARAINFLUENZA VIRUS 2 NOT DETECTED; PARAINFLUENZA VIRUS 4 NOT DETECTED; RHINOVIRUS/ENTEROVIRUS NOT DETECTED; RSV- RESP PCR PANEL NOT DETECTED; SARS-CoV-2 -RESP PCR PANEL NOT DETECTED
[2024-06-14] MEDS ORDERED: ONDANSETRON 4 MG/2 ML VIAL IVP PRN ×2 (00:06→09:03)
--- OUTSIDE RECORDS SUMMARY | 2024-06-14 00:13 | EXTERNAL MEDICAL SUMMARY RPT | Continuity of Care Document ---
Author Organization [place] Address [address] [address] Phone Results/Labs test date facility value unit notes Result panel 1 NUCLEATED RED BLOOD CELLS AUTO 2024-06-13 20:24 [facility] 0.0 /100wbc (missing) NRBC ABSOLUTE COUNT (AUTO) 2024-06-13 20:24 [facility] 0.00 x10 3/ul (missing) BASOPHILS # (AUTO) 2024-06-13 20:24 [facility] 0.1 10 3/ul (missing) EOSINOPHILS # (AUTO) 2024-06-13 20:24 [facility] 0.1 10 3/ul (missing) MONOCYTES # (AUTO) 2024-06-13 20:24 [facility] 0.7 10 3/ul (missing) LYMPHOCYTES # (AUTO) 2024-06-13 20:24 [facility] 0.7 10 3/ul (missing) ALBUMIN/GLOBULIN RATIO 2024-06-13 20:24 [facility] 0.9 (missing) (missing) BILIRUBIN,TOTAL 2024-06-13 20:24 [facility] 1.4 mg /dl As of September 2022 testing method has changed, this may include reference ranges. LACTIC ACID, VENOUS 2024-06-13 20:24 [facility] 1.4 mmol/l Y As of September 2022 testing method has changed, this may include reference ranges. MEAN PLATELET VOLUME 2024-06-13 20:24 [facility] 11.0 fl (missing) ANION GAP 2024-06-13 20:24 [facility] 12.0 (missing ) (missing) HGB - HEMOGLOBIN 2024-06-13 20:24 [facility] 12.0 g /dl (missing) SODIUM 2024-06-13 20:24 [facility] 127 mmol/l As of September 2022 testing method has changed, this may include reference ranges. RED CELL DISTRIBUTION WIDTH 2024-06-13 20:24 [facility] 15.5 % (missing) NEUTROPHILS # (AUTO) 2024-06-13 20:24 [facility] 16.6 10 3/ul (missing) GLUCOSE 2024-06-13 20:24 [facility] 166 mg/dl As of September 2022 testing method has changed, this may include reference ranges. CARBON DIOXIDE - CO2 2024-06-13 20:24 [facility] 18 mmol/l As of September 2022 testing method has changed, this may include reference ranges. WHITE BLOOD COUNT 2024-06-13 20:24 [facility] 18.9 x10 3/ul (missing) ALT ALANINE AMINOTRANSFERASE 2024-06-13 20:24 [facility] 19 iu/l As of September 2022 testing method has changed, this may include reference ranges. ALKALINE PHOSPHATASE 2024-06-13 20:24 [facility] 196 iu/l As of September 2022 testing method has changed, this may include reference ranges. CREATININE 2024-06-13 20:24 [facility] 2.1 mg/dl As of September 2022 testing method has changed, this may include reference ranges. GFR - MDRD 2024-06-13 20:24 [facility] 23 (misael ramirez) Social History date description facility
--- NOTE | 2024-06-14 01:05 | HISTORY & PHYSICAL EXAMINATION ---
Chief Complaint Chief Complaint Chief Complaint: ams, fatigue History of Present Illness History of Present Illness HPI Comment/Other: pt with h/o t2dm and PE, on xarelto, presents with sister to hospital, d/t reports of confusion and ams. pt moved into new apartment with son, who has developmental delay and t1dm. 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 sister states that she is visiting pt and noticed that in the last 24 h, pt has been more confused and tired, and was laying in bed, having urinated on herself for and unknown period of time. sister states their apartment in disarray and is concerned that pt is unable to care for herself of her son properly. sister lives in [place], and pt has another son with CVA, and another one who lives far away and works time clock inspector. in addition to health concerns, both would like to discuss with social media project manager about placement and home health options. pt states that she has not feeling well, and has had frequent falls but no loc or head injuries. she does state that after receiving IVF and treatment in ER, she feels more awake and energetic, and reports some abdominal discomfort and burning with urination. no hematuria. no chest pain, but has some sob. no fevers but feels chills. she does feel nauseated. [facility] [place] Active Problems All Active Problems (Updated 06/13/24 @ 21:44 by Neftali Thornton MD) Dehydration (Acute) Acute UTI (Acute) Sepsis (Acute) Allergic rhinitis, seasonal (Acute) GERD (gastroesophageal reflux disease) (Acute) Depression (Acute) Peripheral neuropathy (Acute) Cough (Acute) Urge incontinence (Acute) Herpes labialis (Acute) Rheumatoid arthritis (Acute) Bowel incontinence (Acute) Chronic low back pain (Acute) Thyromegaly (Acute) HILTON (obstructive sleep apnea) (Acute) Recurrent UTI (Acute) Actinic keratosis (Acute) Chronic diarrhea (Acute) Screening for malignant neoplasm of colon (Acute) Visual hallucinations (Acute) Mixed headache (Acute) B12 deficiency (Acute) Leukocytosis (Acute) Chronic renal insufficiency (Acute) Tremor, essential (Acute) Abnormal mammogram of right breast (Acute) Abnormal mammogram of left breast (Acute) Hand pain, right (Acute) Hip pain, right (Acute) Palpitations (Acute) Frequent falls (Acute) Physical deconditioning (Acute) SOB (shortness of breath) (Acute) Sinusitis, acute (Acute) Hallucinations (Acute) Ankle pain, right (Acute) Cerumen impaction (Acute) Metatarsal bone fracture (Acute) C. difficile diarrhea (Acute) Adrenal mass (Acute) Hypothyroidism (Acute) Asthma (Acute) Hypertension (Acute) Hyperlipidemia (Acute) Diabetes (Acute) Pulmonary emboli (Acute) Hypoxia (Acute) Dyspnea (Acute) Chest pain (Acute) Social History Social History (Updated 06/13/24 @ 21:02 by Doris Patricio RN) Smoking Status: Never smoker Do you dip or chew tobacco?: No Living arrangement: At home Living Condition: With spouse/s.o. Support Person: Yes Relationship: Child Level: Independent Do you feel safe in your home environment?: Yes Suffered physical, verbal, emotional, or financial abuse?: No History of Abuse: No POLST Patient has POLST: No Meds/Allgy Home Medications Ambulatory Orders Medication Instructions Recorded Confirmed simvastatin 10 mg tablet 10 mg PO QPM 04/24/14 06/13/24 metformin 500 mg tablet 1,000 mg PO BIDWM 02/24/15 06/13/24 rivaroxaban 20 mg tablet (Xarelto) 20 mg PO DAILY 04/04/17 06/13/24 fluticasone propionate 50 50 mcg IH BID 05/16/17 05/16/17 mcg/actuation blister powder for inhalation (Flovent Diskus) rivaroxaban 20 mg tablet (Xarelto) 20 mg PO DAILY #30 tabs 04/08/22 06/13/24 paroxetine HCl 20 mg tablet See Rx Instructions .Route 03/19/24 06/13/24 .COMPLEX #90 tabs tolterodine 4 mg capsule,extended See Rx Instructions .Route 03/19/24 06/13/24 release 24 hr .COMPLEX #30 caps pantoprazole 40 mg granules 40 mg PO BID #90 ea 03/20/24 06/13/24 delayed-release for susp in packet (Protonix) metoprolol tartrate 25 mg tablet 50 mg (2 x 25 mg) PO BID #180 tabs 05/29/24 06/13/24 acyclovir 5 % topical cream 1 applic topical 5XD 06/06/24 06/13/24 albuterol sulfate 90 mcg/actuation 2 inh inhalation Q6H PRN SOA 06/06/24 06/13/24 breath activated powder inhaler (ProAir RespiClick) blood sugar diagnostic [OneTouch 06/06/24 Verio test strips] bupropion HCl 150 mg 24 hr tablet, 150 mg PO QDAY 06/06/24 06/13/24 extended release (Wellbutrin XL) dulaglutide 0.75 mg/0.5 mL 0.75 mg subcut QWEEK 06/06/24 06/13/24 subcutaneous pen injector (Nudge) ketoconazole 2 % topical cream 1 applic topical BID 06/06/24 06/13/24 levothyroxine 137 mcg tablet 137 mcg PO QDAY 06/06/24 06/13/24 (Synthroid) syringe with needle 3 mL 25 gauge 06/06/24 x 1" (Monoject 3cc Syringe) Allergies Allergies Allergy/AdvReac Type Severity Reaction Status Date / Time cyclobenzaprine (From Allergy Severe Unknown Verified 06/06/24 05:26 Flexeril) Iodine and Iodide Containing Allergy Severe Rash Verified 06/06/24 05:26 Produc sulfamethoxazole (From Allergy Severe Rash Verified 06/06/24 05:26 Bactrim) trimethoprim (From Bactrim) Allergy Rash Verified 04/08/22 09:56 Iodinated Contrast Media AdvReac Mild Hives Verified 04/08/22 09:56 cyclobenzaprine HCl * (From AdvReac Unknown Verified 04/08/22 09:56 Flexeril) Exam Exam Vital Signs: Vital Signs x48h Temp Pulse Resp BP Pulse Ox O2 Flow Rate 06/13/24 23:59 90 19 96/55 L 99 3 06/13/24 23:31 89 20 107/52 L 99 2 06/13/24 23:07 38 C H 97 22 103/54 L 97 2 06/13/24 22:51 38.2 C H 89 19 95/52 L 99 2 06/13/24 22:18 38.7 C H 100 19 108/57 L 99 2 06/13/24 22:01 98 22 116/57 L 99 2 06/13/24 21:45 38.8 C H 97 18 115/55 L 99 2 06/13/24 21:30 39.9 C H 114 H 20 116/61 99 2 06/13/24 21:19 107 H 22 130/59 L 95 3 06/13/24 21:07 40 C H 113 H 28 H 130/59 L 3 06/13/24 20:58 40.1 C H 115 H 21 129/64 99 2 06/13/24 20:22 40 C H 117 H 20 131/67 H 96 06/13/24 20:09 101 C H 118 H 29 H 137/75 H 95 2 06/13/24 20:07 101 C H 117 H 19 125/72 95 2 06/13/24 19:54 117 H 24 137/75 H 93 Constitutional normal general appearance and no apparent distress HENMT normocephalic and hearing grossly normal bilaterally Eyes EOMs intact bilaterally Neck/C-Spine visual inspection normal Respiratory no retractions and no use of accessory muscles details per ed/rn charting Cardiovascular detals per ed/rn charting Gastrointestinal no masses and no pulsatile mass Neurology balance wheel arm burnisher II-XII intact and no movement abnormality noted Conclusion/Plan Problem List (1) Sepsis: Qualifiers: Acute renal failure type: unspecified Sepsis acute organ dysfunction status: with acute organ dysfunction Sepsis type: sepsis due to unspecified organism Severe sepsis acute organ dysfunction type: acute renal failure S evere sepsis shock status: without septic shock Qualified Code(s): A41.9 - Sepsis, unspecified organism; R65.20 - Severe sepsis without septic shock; N17.9 - Acute kidney failure, unspecified (2) Acute UTI: (3) Dehydration: Lab Results 06/13/24 20:24 06/13/24 20:24 Other Other Results/Comments: pt with - - sepsis ams, low bp, infection, tachycardia, leukocytosis lactic acid ok in setting of ureterolithiasis, uti, pna h/o urinary incontinence ivf, abx, cultures urology consultation will need to be obtained --> consult order placed but will need to be called in AM - ureterolithiasis with R hydronephrosis + R hydroureter also resulting in LATONIA continue abx, ivf, pain control will need urology consultation - toxic, metabolic encephalopathy d/t above + volume depletion (below) no focal neuro deficits neuro checks - uti in setting of ureterolithiasis contributory to above and below h/o same d/t urinary incontinence on rocephin ct abd/pelvis to check for pyelonephritis d/t reports of abd pain - pna noted on imaging pt on O2 via NC resp viral panel ordered continue rocephin + azithromycin in setting of and contributory to above - hyponatremia d/t decreased po intake with low Cl IVF continued no focal neuro deficits pt feeling better s/p bolus + continuous fluids - latonia in setting of above volume depletion d/t reduced po intake (hyponatremia above) prior renal function 1 yr ago wnl ivf continue, renally dose meds renal sono and ct abd/pelvis ordered - t2dm with hyperglycemia exacerbated d/t above ssi, check a1c, tsh, lipids - debility exacerbated d/t current presentation has had multiple falls at home, but no loc trauma w/u negative will need pt eval and tx social media project manager consult for discharge planning and home health services - long-term anticoagulation h/o PE, on xarelto no obvious bleeding or bruising noted or reported
--- NOTE | 2024-06-14 01:17 | CT Report ---
PROCEDURE: CT Abdomen/Pelvis WO INDICATIONS: acute renal failure ? obstruction? TECHNIQUE: A CT scan of the abdomen and pelvis was performed without the use of intravenous contrast. Images we re recorded and evaluated at appropriate window settings. Reformats: coronal and sagittal. For radiat ion dose reduction, the following was used: automated exposure control, adjustment of mA and/or kV ac cording to patient size. COMPARISON: None. FINDINGS: Image quality: Diagnostic. Lower chest: Bibasilar gravitational and atelectatic changes. Small hiatal hernia. Heavy coronary art angela calcification. Liver: No contour-deforming mass. Gallbladder: Surgically absent. Biliary tree: No intrahepatic or extrahepatic dilation, accounting for age. Spleen: No splenomegaly. Pancreas: No pancreatic ductal dilation. Adrenals: No adrenal nodule. Kidneys and ureters: Moderate right hydronephrosis. Nonobstructing upper and lower pole calcification s of varying sizes, lower pole conforming to the shape of the calyces. There is mild perinephric infl ammation. Moderate right hydroureter. A 6 mm stone is present in the right distal ureter with Hounsfi eld units about 500. No left-sided hydronephrosis. Lower pole parapelvic cysts. Exophytic left renal cyst. Punctate intrarenal calcification. Normal left ureter. Stomach, bowel and peritoneum: Stomach and bowel loops are within normal limits. No pathologic free f luid. Lymph nodes: Several borderline periportal and periaortic lymph nodes are present. No mesenteric laura opathy. Vessels: No infrarenal aortic aneurysm. Reproductive organs: The uterus is absent. Bladder: Bladder is partially decompressed with a Nichols catheter. Pelvic lymph nodes: No adenopathy by size criteria. Bones: No suspicious bone lesions. L2-3 vertebral body hemangiomas. Other: No significant ventral or inguinal hernia. IMPRESSION: Right-sided hydronephrosis and hydroureter due to a 6 mm obstructing distal ureteral calcification. Several other nonobstructing intrarenal calculi are present in the right. Heavy coronary artery calcification incidentally noted. Reviewed by: Nicole Nguyen MD on 06/14/2024 1:16 AM PDT Approved by: Nicole Nguyen MD on 06/14/2024 1:16 AM PDT Station ID: [id number]
[2024-06-14] MEDS: LACTATED RINGERS 500 ML IV ONE (02:01)
[2024-06-14] MEDS: LACTATED RINGERS 1,000 ML IV SCH ×2 (02:02→10:36)
[2024-06-14 06:05] LABS: BASOPHILS # (AUTO) 0.1 10^3/uL (0.0-0.1); BASOPHILS % (AUTO) 0.6 %; EOSINOPHILS # (AUTO) 0.1 10^3/uL (0.0-0.7); EOSINOPHILS % (AUTO) 0.5 %; HCT - HEMATOCRIT 31.7 % (37.0-47.0); HGB - HEMOGLOBIN 10.4 g/dL (12.0-16.0); LYMPHOCYTES # (AUTO) 1.4 10^3/uL (1.5-3.5); MEAN CORPUSCULAR HGB CONC 32.8 g/dL (32.0-36.0); MEAN CORPUSCULAR VOLUME 82.3 fL (81.0-99.0); MEAN PLATELET VOLUME 10.8 fL (7.9-10.8); MONOCYTES # (AUTO) 0.6 10^3/uL (0.0-1.0); MONOCYTES % (AUTO) 2.9 %; NEUTROPHILS # (AUTO) 16.8 10^3/uL (1.5-6.6); NEUTROPHILS % (AUTO) 87.2 %; PLT - PLATELET COUNT 245 10^3/uL (130-450); RED BLOOD COUNT 3.85 10^6/uL (4.20-5.40); RED CELL DISTRIBUTION WIDTH 15.8 % (12.0-15.0); WHITE BLOOD COUNT 19.2 x10^3/uL (4.8-10.8)
[2024-06-14 06:19] LABS: ALBUMIN 2.8 g/dL (3.2-5.5); ALBUMIN/GLOBULIN RATIO 0.9 (1.0-2.2); BILIRUBIN,TOTAL 0.9 mg/dL (0.2-1.0); CALCIUM 7.8 mg/dL (8.5-10.3); CREATININE 2.1 mg/dL (0.6-1.3); POTASSIUM 4.7 mmol/L (3.5-4.5); TOTAL PROTEIN 5.9 g/dL (6.4-8.9)
[2024-06-14 06:39] LABS: CHOL/HDL RATIO 22.8 (<4.4); CHOLESTEROL 137 mg/dL; HDL CHOLESTEROL 6 mg/dL; LDL CHOLESTEROL,CALCULATED 77 mg/dL; LDL/HDL RATIO 12.8 (<4.4); TRIGLYCERIDES 270 mg/dL; VLDL CHOLESTEROL 54 mg/dL
[2024-06-14 06:55] LABS: THYROID STIMULATING HORMONE 4.59 uIU/mL (0.34-5.60)
--- NOTE | 2024-06-14 07:19 | PREOP HISTORY & PHYSICAL ---
Surgical History & Physical Chief Complaint/HPI Chief Complaint: fever/sepsis History of Present Illness: 74yo F with hx of adrenalectomy, T2DM, PE on xeralto, presented late last night with fever, concern for UTI. CT Scan showed right 6mm distal ureteral stone. Overnight she feels better but has noted RLQ pain. No prior stones. Afebrile this morning. Home Meds and Allergies Active Medications Generic Name Dose Route Start Last Admin Trade Name Freq PRN Reason Stop Dose Admin Acetaminophen 650 mg 06/14/24 00:06 Acetaminophen 325 Mg Tablet PO Q6H PRN pain, fever Albuterol 2.5 mg 06/14/24 00:40 Albuterol Neb 2.5 Mg/3 Ml INH RTQ6H PRN Wheezing Apixaban 5 mg 06/14/24 09:00 Apixaban 5 Mg Tablet PO BID BETTYE Atorvastatin Calcium 5 mg 06/14/24 21:00 Atorvastatin 10 Mg Tablet PO HS BETTYE Budesonide 0.5 mg 06/14/24 07:00 Budesonide 0.5 Mg/2 Ml Neb INH RTBID BETTYE Bupropion HCl 150 mg 06/14/24 09:00 Bupropion Xl 150 Mg Tablet PO DAILY BETTYE Lactated Ringer's 1,000 mls @ 125 mls/hr 06/14/24 01:00 06/14/24 06:13 Lr IV 125 mls/hr .Q8H BETTYE Administration Azithromycin 500 mg/ Sodium 250 mls @ 250 mls/hr 06/14/24 09:00 Chloride IV DAILY BETTYE Ceftriaxone Sodium 1 gm/ 100 mls @ 200 mls/hr 06/14/24 21:00 Sodium Chloride IV Q24H BETTYE Insulin Human Lispro 1 - 9 unit 06/14/24 08:00 Insulin Lispro 300 Unit/3 Ml Pen SUBQ 0800,1200,1700,2100 [facility] Protocol Lactobacillus Rhamnosus 1 cap 06/14/24 09:00 Lactobacillus Rhamnosus Gg Capsule PO DAILY BETTYE Ondansetron HCl 4 mg 06/14/24 00:06 Ondansetron 4 Mg/2 Ml Vial IVP Q8H PRN Nausea / Vomiting Pantoprazole Sodium 40 mg 06/14/24 09:00 Pantoprazole 40 Mg Tablet PO BID BETTYE Polyethylene Glycol 17 gm 06/14/24 09:00 Polyethylene Glycol 3350 17 Gm Packet PO DAILY BETTYE Solifenacin 10 mg 06/14/24 21:00 Solifenacin Succinate 5 Mg Tablet PO HS BETTYE simvastatin 10 mg tablet 10 mg PO QPM 04/24/14 metformin 500 mg tablet 1,000 mg PO BIDWM 02/24/15 rivaroxaban 20 mg tablet (Xarelto) 20 mg PO DAILY 04/04/17 fluticasone propionate 50 mcg/actuation blister powder for inhalation (Flovent Diskus) 50 mcg IH BID 05/16/17 rivaroxaban 20 mg tablet (Xarelto) 20 mg PO DAILY #30 tabs 04/08/22 paroxetine HCl 20 mg tablet See Rx Instructions .Route .COMPLEX #90 tabs 03/19/24 tolterodine 4 mg capsule,extended release 24 hr See Rx Instructions .Route .COMPLEX #30 caps 03/19/24 pantoprazole 40 mg granules delayed-release for susp in packet (Protonix) 40 mg PO BID #90 ea 03/20/24 metoprolol tartrate 25 mg tablet 50 mg (2 x 25 mg) PO BID #180 tabs 05/29/24 acyclovir 5 % topical cream 1 applic topical 5XD 06/06/24 albuterol sulfate 90 mcg/actuation breath activated powder inhaler (ProAir RespiClick) 2 inh inhalation Q6H PRN SOA 06/06/24 blood sugar diagnostic [OneTouch Verio test strips] 06/06/24 bupropion HCl 150 mg 24 hr tablet, extended release (Wellbutrin XL) 150 mg PO QDAY 06/06/24 dulaglutide 0.75 mg/0.5 mL subcutaneous pen injector (Trulicity) 0.75 mg subcut QWEEK 06/06/24 ketoconazole 2 % topical cream 1 applic topical BID 06/06/24 levothyroxine 137 mcg tablet (Synthroid) 137 mcg PO QDAY 06/06/24 syringe with needle 3 mL 25 gauge x 1" (Monoject 3cc Syringe) 06/06/24 Allergies Allergy/AdvReac Type Severity Reaction Status Date / Time cyclobenzaprine (From Allergy Severe Unknown Verified 06/06/24 05:26 Flexeril) Iodine and Iodide Containing Allergy Severe Rash Verified 06/06/24 05:26 Produc sulfamethoxazole (From Allergy Severe Rash Verified 06/06/24 05:26 Bactrim) trimethoprim (From Bactrim) Allergy Rash Verified 04/08/22 09:56 Iodinated Contrast Media AdvReac Mild Hives Verified 04/08/22 09:56 cyclobenzaprine HCl * (From AdvReac Unknown Verified 04/08/22 09:56 Flexeril) Vital Signs O2 Saturation: 94 Patient Review Patient Review Pertinent Tests Reviewed [facility] Social History Social History (Updated 06/13/24 @ 21:02 by Doris Patricio RN) Smoking Status: Never smoker Do you dip or chew tobacco?: No Do you vape?: No Living arrangement: At home Living Condition: With spouse/s.o. Support Person: Yes Relationship: Level: Independent Home Mobility Equipment: Cane and Walker Do you feel safe in your home environment?: Yes Suffered physical, verbal, emotional, or financial abuse?: No History of Abuse: No POLST Patient has POLST: No Exam Exam NAD RRR CTA b/l Assessment & Plan Assessment & Plan Assessment & Plan: 74yo F with multiple medical issues, fever, UTI, right 6mm distal ureteral stone. -NPO/IVF -addon for cystoscopy and right ureteral stent placement. risks/benefits/alternatives discussed with patient. She will need definitive ureteroscopy as outpatient -patient states understanding and consents to above plan
[2024-06-14] MEDS: ALBUTEROL NEB 2.5 MG/3 ML INH PRN (07:28)
[2024-06-14] MEDS: BUDESONIDE 0.5 MG/2 ML NEB INH SCH (07:29)
[2024-06-14] MEDS: INSULIN LISPRO 300 UNIT/3 ML PEN SUBQ SCH (07:55)
[2024-06-14] MEDS ORDERED: HYDROmorphone 1 MG/ML SYRINGE ONE (08:14)
[2024-06-14] MEDS ORDERED: ROCURONIUM 50 MG/5 ML VIAL ONE (08:33)
[2024-06-14] MEDS ORDERED: PROPOFOL 200 MG/20 ML VIAL IVP ONE (08:33)
[2024-06-14] MEDS ORDERED: MORPHINE 2 MG/ML CARPUJECT IVP PRN (09:03)
[2024-06-14] MEDS ORDERED: METOCLOPRAMIDE 10 MG/2 ML VIAL IVP PRN (09:03)
[2024-06-14] MEDS ORDERED: fentaNYL 100 MCG/2 ML VIAL IVP PRN (09:03)
[2024-06-14] MEDS ORDERED: ePHEDrine 50 MG/ML VIAL IVP PRN (09:03)
[2024-06-14] MEDS ORDERED: HYDROmorphone 0.5 MG/0.5 ML SYRINGE IVP PRN ×2 (09:03→10:22)
[2024-06-14] MEDS ORDERED: ATROPINE ABBOJECT 1 MG/10 ML SYRINGE IVP PRN (09:03)
[2024-06-14] MEDS ORDERED: NALOXONE 0.4 MG/ML VIAL IVP PRN (09:03)
[2024-06-14] MEDS: APIXABAN 5 MG TABLET PO SCH (09:17)
[2024-06-14] MEDS: polyethylene glycoL 3350 17 GM PACKET PO SCH (09:17)
[2024-06-14] MEDS: buPROPion XL 150 MG TABLET PO SCH (09:17)
[2024-06-14] MEDS: PANTOPRAZOLE 40 MG TABLET PO SCH (09:17)
[2024-06-14] MEDS: LACTOBACILLUS RHAMNOSUS GG CAPSULE PO SCH (09:17)
[2024-06-14] MEDS ORDERED: fentaNYL 100 MCG/2 ML VIAL ONE (09:18)
[2024-06-14] MEDS: AZITHROMYCIN INJ 500 MG in SODIUM CHLORIDE 0.9% 250 ML IV SCH (09:18)
[2024-06-14] MEDS ORDERED: DEXAMETHASONE 4 MG/ML VIAL ONE (09:30)
[2024-06-14] MEDS ORDERED: ONDANSETRON 4 MG/2 ML VIAL ONE (09:30)
[2024-06-14] MEDS ORDERED: LIDOCAINE 2% URO-JET 5 ML SYRINGE UR ONE (09:40)
[2024-06-14] MEDS ORDERED: SUGAMMADEX 200 MG/2 ML VIAL IVP ONE (09:42)
--- NOTE | 2024-06-14 09:43 | ANESTHESIA PROCEDURE NOTE ---
Pre-Anesthesia VS, & Labs Diagnosis Surgical Diagnosis:: right obstructing ureteral stone Procedure Procedure: cysto, stent Vitals Vital Signs: Temp Pulse Resp BP Pulse Ox O2 Flow Rate 36.6 C 114 H 18 140/73 H 97 2 06/14/24 08:26 06/14/24 08:26 06/14/24 08:26 06/14/24 08:26 06/14/24 08:26 06/14/24 01:40 NPO NPO: >8 hours Is Patient ?: No Lab Results Current Lab Results: Laboratory Tests 06/14/24 07:43: POC Whole Bld Glucose 147 06/14/24 05:52: WBC 19.2 H, RBC 3.85 L, Hgb 10.4 L, Hct 31.7 L, MCV 82.3, MCH 27.0, MCHC 32.8, RDW 15.8 H, Plt Count 245, MPV 10.8, Neut # (Auto) 16.8 H, L ymph # (Auto) 1.4 L, [place] # (Auto) 0.6, Eos # (Auto) 0.1, Baso # (Auto) 0.1, Absolute Nucleated RBC 0.00, Nucleated RBC % 0.0, Sodium 133 L, Potassium 4.7 H, Chloride 103, Carbon Dioxide 21, Anion Gap 9.0, BUN 32 H, Creatinine 2.1 H, E stimated GFR (MDRD) 23 L, Glucose 174 H, Calcium 7.8 L, Magnesium 2.0, Total Bilirubin 0.9, AST 15, ALT 16, Alkaline Phosphatase 156 H, Total Protein 5.9 L, Albumin 2.8 L, Globulin 3.1, Albumin/Globulin Ratio 0.9 L, Triglycerides 270, Cholesterol 137, LDL Cholesterol, Calc 77, VLDL Cholesterol 54, HDL Cholesterol 6 L, LDL/HDL Ratio 12.8, Cholesterol/HDL Ratio 22.8, TSH 4.59 06/13/24 20:24: WBC 18.9 H, RBC 4.43, Hgb 12.0, Hct 37.0, MCV 83.5, MCH 27.1, MCHC 32.4, RDW 15.5 H, Plt Count 265, MPV 11.0 H, Neut # (Auto) 16.6 H, Lymph # (Auto) 0.7 L, [place] # (Auto) 0.7, Eos # (Auto) 0.1, Baso # (Auto) 0.1, Absolute Nucleated RBC 0.00, Band Neuts % (Manual) Not Reportable, Abnorm Lymph % (Manual) Not Reportable, Nucleated RBC % 0.0, Neutrophils # (Manual) Not Reportable, Lymphocytes # (Manual) Not Reportable, Monocytes # (Manual) Not Reportable, Eosinophils # (Manual) Not Reportable, Basophils # (Manual) Not Reportable, Differential Comment MANUAL=AUTO DIFF, Manual Slide Review Indicated, Platelet Estimate NORMAL (130-450,000), Platelet Morphology NORMAL APPEARANCE, RBC Morph Micro Appear NORMAL APPEARANCE, Sodium 127 L, Potassium 4.7 H, Chloride 97 L, Carbon Dioxide 18 L, Anion Gap 12.0, BUN 33 H, Creatinine 2.1 H, Estimated GFR (MDRD) 23 L, Glucose 166 H, Lactic Acid 1.4, Calcium 7.9 L, Total Bilirubin 1.4 H, AST 24, ALT 19, Alkaline Phosphatase 196 H, Total Protein 6.9, Albumin 3.3, Globulin 3.6, Albumin/Globulin Ratio 0.9 L 06/14/24 05:52 06/14/24 05:52 Meds/Allgy Home Medications Ambulatory Orders Medication Instructions Recorded Confirmed simvastatin 10 mg tablet 10 mg PO QPM 04/24/14 06/13/24 metformin 500 mg tablet 1,000 mg PO BIDWM 02/24/15 06/13/24 rivaroxaban 20 mg tablet (Xarelto) 20 mg PO DAILY 04/04/17 06/13/24 fluticasone propionate 50 50 mcg IH BID 05/16/17 05/16/17 mcg/actuation blister powder for inhalation (Flovent Diskus) rivaroxaban 20 mg tablet (Xarelto) 20 mg PO DAILY #30 tabs 04/08/22 06/13/24 paroxetine HCl 20 mg tablet See Rx Instructions .Route 03/19/24 06/13/24 .COMPLEX #90 tabs tolterodine 4 mg capsule,extended See Rx Instructions .Route 03/19/24 06/13/24 release 24 hr .COMPLEX #30 caps pantoprazole 40 mg granules 40 mg PO BID #90 ea 03/20/24 06/13/24 delayed-release for susp in packet (Protonix) metoprolol tartrate 25 mg tablet 50 mg (2 x 25 mg) PO BID #180 tabs 05/29/24 06/13/24 acyclovir 5 % topical cream 1 applic topical 5XD 06/06/24 06/13/24 albuterol sulfate 90 mcg/actuation 2 inh inhalation Q6H PRN SOA 06/06/24 06/13/24 breath activated powder inhaler (ProAir RespiClick) blood sugar diagnostic [OneTouch 06/06/24 Verio test strips] bupropion HCl 150 mg 24 hr tablet, 150 mg PO QDAY 06/06/24 06/13/24 extended release (Wellbutrin XL) dulaglutide 0.75 mg/0.5 mL 0.75 mg subcut QWEEK 06/06/24 06/13/24 subcutaneous pen injector (EveryMove) ketoconazole 2 % topical cream 1 applic topical BID 06/06/24 06/13/24 levothyroxine 137 mcg tablet 137 mcg PO QDAY 06/06/24 06/13/24 (Synthroid) syringe with needle 3 mL 25 gauge 06/06/24 x 1" (Monoject 3cc Syringe) Allergies Allergies Allergy/AdvReac Type Severity Reaction Status Date / Time cyclobenzaprine (From Allergy Severe Unknown Verified 06/06/24 05:26 Flexeril) Iodine and Iodide Containing Allergy Severe Rash Verified 06/06/24 05:26 Produc sulfamethoxazole (From Allergy Severe Rash Verified 06/06/24 05:26 Bactrim) trimethoprim (From Bactrim) Allergy Rash Verified 04/08/22 09:56 Iodinated Contrast Media AdvReac Mild Hives Verified 04/08/22 09:56 cyclobenzaprine HCl * (From AdvReac Unknown Verified 04/08/22 09:56 Flexeril) PFSH Active Problems All Active Problems (Updated 06/13/24 @ 21:44 by Neftali Thornton MD) Dehydration (Acute) Acute UTI (Acute) Sepsis (Acute) Allergic rhinitis, seasonal (Acute) GERD (gastroesophageal reflux disease) (Acute) Depression (Acute) Peripheral neuropathy (Acute) Cough (Acute) Urge incontinence (Acute) Herpes labialis (Acute) Rheumatoid arthritis (Acute) Bowel incontinence (Acute) Chronic low back pain (Acute) Thyromegaly (Acute) HILTON (obstructive sleep apnea) (Acute) Recurrent UTI (Acute) Actinic keratosis (Acute) Chronic diarrhea (Acute) Screening for malignant neoplasm of colon (Acute) Visual hallucinations (Acute) Mixed headache (Acute) B12 deficiency (Acute) Leukocytosis (Acute) Chronic renal insufficiency (Acute) Tremor, essential (Acute) Abnormal mammogram of right breast (Acute) Abnormal mammogram of left breast (Acute) Hand pain, right (Acute) Hip pain, right (Acute) Palpitations (Acute) Frequent falls (Acute) Physical deconditioning (Acute) SOB (shortness of breath) (Acute) Sinusitis, acute (Acute) Hallucinations (Acute) Ankle pain, right (Acute) Cerumen impaction (Acute) Metatarsal bone fracture (Acute) C. difficile diarrhea (Acute) Adrenal mass (Acute) Hypothyroidism (Acute) Asthma (Acute) Hypertension (Acute) Hyperlipidemia (Acute) Diabetes (Acute) Pulmonary emboli (Acute) Hypoxia (Acute) Dyspnea (Acute) Chest pain (Acute) Social History Social History (Updated 06/13/24 @ 21:02 by Doris Patricio RN) Smoking Status: Never smoker Do you dip or chew tobacco?: No Do you vape?: No Living arrangement: At home Living Condition: With spouse/s.o. Support Person: Yes Relationship: Level: Independent Home Mobility Equipment: Cane and Walker Do you feel safe in your home environment?: Yes Suffered physical, verbal, emotional, or financial abuse?: No History of Abuse: No POLST Patient has POLST: No Anesthesia Exam (Expanded) Exam General: Alert, Oriented x3 and Moderate distress (pain) Dental: Other (edentulous) Mouth Openin Fingerbreadth Neck Mobility: Normal Mallampati classification: II Thyromental Distance: greater than 6 cm Respiratory: Lungs clear Cardiovascular: Regular rate Exam Exam Vital Signs: Vital Signs x48h Temp Pulse Pulse Resp BP BP Pulse Ox 06/14/24 08:26 36.6 C 114 H 18 140/73 H 97 06/14/24 07:29 103 H 20 06/14/24 07:19 94 06/14/24 05:00 36.4 C L 92 16 120/63 94 06/14/24 01:40 38.0 C H 78 20 115/67 97 O2 Flow Rate 06/14/24 08:26 06/14/24 07:29 06/14/24 07:19 06/14/24 05:00 06/14/24 01:40 2 Plan Problem List (1) Sepsis: Qualifiers: Acute renal failure type: unspecified Sepsis acute organ dysfunction status: with acute organ dysfunction Sepsis type: sepsis due to unspecified organism Severe sepsis acute organ dysfunction type: acute renal failure S evere sepsis shock status: without septic shock Qualified Code(s): A41.9 - Sepsis, unspecified organism; R65.20 - Severe sepsis without septic shock; N17.9 - Acute kidney failure, unspecified (2) Acute UTI: (3) Dehydration: Plan Anesthesia Type: General Consent for Procedure(s) Verified and Reviewed: Yes Code Status: Attempt Resuscitation ASA Classification ASA classification: 3-Severe systemic disease Is this case an emergency?: Yes
--- NOTE | 2024-06-14 09:51 | OPERATIVE REPORT ---
Operative Report General Admit Date: 06/13/24 Procedure Data: Operation Date: 06/14/24 09:15 Proposed Procedures p Cystoscopy With Ureteral Stent Placement(Right) - Chung Newsome MD Anesthesia Type General Case Times Procedure Start: 06/14/24 09:36 Procedure End: 06/14/24 09:44 Time out: 06/14/24 09:35 Pre-Op Diagnosis: right ureteral stone Post Op Diagnosis: right ureteral stone Procedure Note Findings: Diffusely erythematous bladder, purulent urine from stent Other Other Information/Narrative: After informed sent obtained the patient brought the OR and laid in the supine position. The patient was anesthetized per anesthesia protocols. Her Nichols catheter was removed. She was then prepped and draped in usual sterile fashion in the dorsolithotomy position. A formal timeout was performed reconfirmed the patient and procedure and laterality A 22 Austrian cystoscope was advanced per urethra into urinary bladder. Bladder was inspected in full and there were no masses or lesions or other concerns though her mucosa had diffuse erythema consistent with cystitis. A sensor wire was cannulated upper right ureteral orifice with an immediate stephenson of purulent effluent. A 6 Austrian 24 cm stent was placed with good curling noted in the kidney and curling over the bladder. There was continuous purulent drainage from her stent consistent with obstructing stone and infection proximal to the stone The bladder was emptied and Uro-Jet was placed This included the procedure and the patient tolerated procedure well. She was brought to PACU without further descent. She will return to medical service for antibiotics and time She will need to finish ureteroscopy as an outpatient
[2024-06-14] MEDS ORDERED: LIDOCAINE TOPICAL 4% 50 ML BOTTLE ONE (10:32)
--- NOTE | 2024-06-14 10:46 | ANESTHESIA POST OP EVALUATION ---
Anesthesia Post Eval Post Anesthesia Eval Vitals: Last Vital Signs Temp 37.5 C 06/14/24 10:22 Pulse 109 H 06/14/24 10:22 Resp 16 06/14/24 10:22 BP 119/56 L 06/14/24 10:22 Pulse Ox 95 06/14/24 10:22 O2 Flow Rate 2 06/14/24 01:40 CV Function Including HR & BP: Stable Pain Control: Satisfactory Nausea & Vomiting: Negative Mental Status: Baseline Respiratory Status: Airway Patent Hydration Status: Satisfactory Anesthesia Complications: None
[2024-06-14 12:09] LABS: ESTIMATED AVERAGE GLUCOSE 197 mg/dL (70-100); HEMOGLOBIN A1c% 8.5 % (4.27-6.07)
[2024-06-14] MEDS: PARoxetine 10 MG TABLET PO SCH (13:29)
--- NOTE | 2024-06-14 13:42 | PT Plan of Care ---
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 Admitted with confusion and sepsis, no s/p cystoscopy performed 06/14/24 d/t ureteral stone. PMH includes adrenalectomy, T2DM, PE on Xeralto. Cleared for therapy evaluation. Pt lives in [facility] c adult son who she is primary CG for and is Alvaro with FWW at baseline. Upon PT eval, pt on 4L O2, supine in bed, A&Ox4 and agrees to participate. Performed supine to sit c modAx1, sit to stand c FWW and minAx1 and able to take limited lateral steps with mod cueing and Jesusita for stability. Pt fatigued with standing activity with mild retropulsion and sats low 90s during prolonged standing on 4L. Pt is presenting overall with decreased endurance, activity tolerance and functional mobility. She will benefit from skilled PT in acute setting to improve standing tolerance and progress ambulation distance. When medically clear, PT rec dc to SNF for further rehab. Goals Improve bed mobility to: Modified Independent Improve supine to sit to: Contact Guard Improve sit to stand to: Contact Guard Improve pivot transfer ability Contact Guard to: Improve sit to supine to: Contact Guard Improve gait ability to: CGA Assistive Device Used: Front Wheeled Walker Improve Lower Extremity ROM to WFL : [Bilateral] Improve Lower Extremity ROM to WFL : Improve Lower Extremity Good Strength to: [Bilateral] Improve Lower Extremity Good Strength to: Improve Upper Extremity ROM to WFL : [Bilateral] Improve Upper Extremity ROM to WFL : Improve Upper Extremity Good Strength to: [Bilateral] Improve Upper Extremity Good Strength to: Improve Standing Balance to: Good PT Plan of Care Frequency 1-2x/day Discharge Recommendations Discharge Location Longterm Facility DC Equipment Recommended Front wheeled walker Other home ex. program Transport Needs at Discharge Wheelchair van
--- NOTE | 2024-06-14 15:16 | PHARMACY PROGRESS NOTE ---
Best Possible Medication History Admit Date and Time: 06/13/24 4096 Home Medications Medication Instructions Recorded Confirmed Type rivaroxaban 20 mg tablet (Xarelto) 20 mg PO DAILY 04/04/17 06/14/24 History paroxetine HCl 20 mg tablet See Rx Instructions .Route 03/19/24 06/14/24 Rx .COMPLEX #90 tabs tolterodine 4 mg capsule,extended See Rx Instructions .Route 03/19/24 06/14/24 Rx release 24 hr .COMPLEX #30 caps metoprolol tartrate 25 mg tablet 50 mg (2 x 25 mg) PO BID #180 tabs 05/29/24 06/14/24 Rx acyclovir 5 % topical cream 1 applic topical 5XD 06/06/24 06/14/24 History albuterol sulfate 90 mcg/actuation 2 inh inhalation Q6H PRN SOA 06/06/24 06/14/24 History breath activated powder inhaler (ProAir RespiClick) blood sugar diagnostic [OneTouch 06/06/24 History Verio test strips] bupropion HCl 150 mg 24 hr tablet, 150 mg PO QDAY 06/06/24 06/14/24 History extended release (Wellbutrin XL) dulaglutide 0.75 mg/0.5 mL 0.75 mg subcut QWEEK 06/06/24 06/14/24 History subcutaneous pen injector (Trulicity) ketoconazole 2 % topical cream 1 applic topical BID 06/06/24 06/14/24 History levothyroxine 137 mcg tablet 137 mcg PO QDAY 06/06/24 06/14/24 History (Synthroid) syringe with needle 3 mL 25 gauge 06/06/24 History x 1" (Monoject 3cc Syringe) diphenhydramine HCl 25 mg tablet 25 mg PO Q8H PRN allergy symptoms 06/14/24 06/14/24 History (Allergy (diphenhydramine)) fluticasone propionate 50 1 spray intranasal DAILY PRN 06/14/24 06/14/24 History mcg/actuation nasal allergy symptoms spray,suspension (24 Hour Allergy Relief) pantoprazole 40 mg tablet,delayed 40 mg PO BID 06/14/24 06/14/24 History release sitagliptin phosphate 100 mg 100 mg PO DAILY 06/14/24 06/14/24 History tablet (Januvia) Processed by: Pharmacy Medications reviewed in ED?: No Medication History completed: Yes Patient Interview: Completed Secondary Source(s): Insurance records [facility] Statement: Per [facility] interview with patient and review of [facility] insurance records. As the person ultimately responsible for medication therapy, providers are able to order a medication from an existing home medication list in [facility] via the "Reconcile Routine" prior to Confirmation of that medication by support services manager. Such practice is discouraged except when the physician, in their clinical judgment, deems that a medical need exists for a medication without regard to previous use.
--- NOTE | 2024-06-14 17:07 | XRAY Report ---
PROCEDURE: FL OR C-Arm Procedure INDICATIONS: Surgical Procedure FLUORO TIME: 000.1 TECHNIQUE: Intraoperative fluoroscopic images of right lower quadrant abdomen were obtained. COMPARISON: None. FINDINGS: 3 fluoroscopic images of lower abdomen shows a catheter projecting in right lower quadrant suggest cl inical correlation. IMPRESSION: Fluoroscopy guidance was provided intraoperatively for surgical procedure performed by barak haney. Reviewed by: Shakir Segundo MD on 06/14/2024 5:05 PM PDT Approved by: Shakir Segundo MD on 06/14/2024 5:05 PM PDT Station ID: [id number]
[2024-06-14] MEDS: SOLIFENACIN SUCCINATE 5 MG TABLET PO SCH (21:30)
[2024-06-14] MEDS: METOPROLOL TARTRATE 50 MG TABLET PO SCH (21:30)
[2024-06-14] MEDS: ATORVASTATIN 10 MG TABLET PO SCH (21:33)
[2024-06-14] MEDS: cefTRIAXone 1 GM in SODIUM CHLORIDE 0.9% MINIBAG 100 ML IV SCH (21:34)
--- NOTE | 2024-06-15 00:37 | Ultrasound Report ---
PROCEDURE: US Renal (Retroperitoneal) INDICATIONS: jimmy TECHNIQUE: Real-time scanning was performed of the retroperitoneal organs, with image documentation. COMPARISON: None. FINDINGS: Kidneys: Kidneys are normal in size. Right kidney measures 12.0 cm long; left kidney measures 10.0 cm long. Right renal cortical thickness is 1.4 cm; left renal cortical thickness is 1.2 cm. Upper an d lower pole shadowing echogenic foci in the right kidney. The largest in the upper pole measures 1.4 cm. A collection in the lower pole measures 0.8 and 0.9 cm. No hydronephrosis. The left kidney demon strates a 1.9 cm exophytic midpole cyst. A parapelvic cyst is present in the lower pole measuring 1.5 cm. Bladder: Pre-void bladder volume is 131 mL. Post-void residual is not able to be obtained . A nephr oureteral stent is visible Pre-void images demonstrate no intraluminal masses or stones. On pre-voi d images, neither ureteral jets are noted with color Doppler interrogation. (Of note, ureteral jets may not be detectable in up to 25% of cases due to insufficient differences in specific gravity betwe en ureteral and bladder urine). Miscellaneous: No free abdominal fluid. The stent in the distal left ureter curling in the urinary bladder is present. The proximal portion was not seen in the kidney. IMPRESSION: Nonobstructing right intrarenal calculi. Left renal cysts. No evidence of hydronephrosis. Reviewed by: Nicole Nguyen MD on 06/15/2024 12:36 AM PDT Approved by: Nicole Nguyen MD on 06/15/2024 12:36 AM PDT Station ID: [id number]
[2024-06-15 06:08] LABS: HCT - HEMATOCRIT 29.2 % (37.0-47.0); HGB - HEMOGLOBIN 9.4 g/dL (12.0-16.0); MEAN CORPUSCULAR HEMOGLOBIN 26.9 pg (27.0-31.0); MEAN CORPUSCULAR HGB CONC 32.2 g/dL (32.0-36.0); MEAN CORPUSCULAR VOLUME 83.4 fL (81.0-99.0); MEAN PLATELET VOLUME 10.9 fL (7.9-10.8); RED BLOOD COUNT 3.5 10^6/uL (4.20-5.40); RED CELL DISTRIBUTION WIDTH 16.1 % (12.0-15.0); WHITE BLOOD COUNT 18.9 x10^3/uL (4.8-10.8)
[2024-06-15 06:22] LABS: CALCIUM 7.9 mg/dL (8.5-10.3); CREATININE 1.3 mg/dL (0.6-1.3); MAGNESIUM 1.9 mg/dL (1.7-2.3); POTASSIUM 4.1 mmol/L (3.5-4.5)
[2024-06-15] MEDS: LEVOTHYROXINE 25 MCG TABLET PO SCH (06:40)
[2024-06-15] MEDS: LEVOTHYROXINE 112 MCG TABLET PO SCH (06:40)
[2024-06-15] MEDS ORDERED: INSULIN LISPRO 300 UNIT/3 ML PEN SUBQ SCH (08:00)
[2024-06-15] MEDS: METOPROLOL TARTRATE 25 MG TABLET PO SCH (08:27)
[2024-06-15] MEDS: SITAGLIPTIN PHOSPHATE 100 MG PO SCH (08:39)
--- NOTE | 2024-06-15 12:08 | PROVIDER PROGRESS NOTE ---
Subjective Subjective Subjective: Today, patient feels better. She has no fevers or chills. She has no dysuria or urinary incontinence. She states that prior to coming in, she was weak and had fevers and chills, generalized malaise for a few weeks. 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 As such, she came to the hospital. Current Medications Current Medications Current Medications: Current Medications Generic Name Dose Route Start Last Admin Trade Name Freq PRN Reason Stop Dose Admin Acetaminophen 650 mg 06/14/24 00:06 Acetaminophen 325 Mg Tablet PO Q6H PRN pain, fever Hydrocodone Bitart/Acetaminophen 1 tab 06/14/24 10:22 Hydrocod/Acetam 5/325 Mg Tablet PO Q4HR PRN Moderate Pain (Level 4-6) Apixaban 5 mg 06/14/24 09:00 06/15/24 08:25 Apixaban 5 Mg Tablet PO 5 mg BID BETTYE Administration Atorvastatin Calcium 5 mg 06/14/24 21:00 06/14/24 21:33 Atorvastatin 10 Mg Tablet PO 5 mg HS BETTYE Administration Budesonide 0.5 mg 06/14/24 07:00 06/15/24 05:34 Budesonide 0.5 Mg/2 Ml Neb INH 0.5 mg RTBID BETTYE Administration Bupropion HCl 150 mg 06/14/24 09:00 06/14/24 11:49 Bupropion Xl 150 Mg Tablet PO 150 mg DAILY BETTYE Administration Hydromorphone HCl 0.5 mg 06/14/24 10:22 Hydromorphone 0.5 Mg/0.5 Ml Syringe IVP Q4HR PRN Severe Pain (Level 7-10) Lactated Ringer's 1,000 mls @ 125 mls/hr 06/14/24 01:00 06/15/24 08:46 Lr IV 125 mls/hr .Q8H BETTYE Administration Azithromycin 500 mg/ Sodium 250 mls @ 250 mls/hr 06/14/24 09:00 06/15/24 08:25 Chloride IV 250 mls/hr DAILY BETTYE Administration Ceftriaxone Sodium 1 gm/ 100 mls @ 200 mls/hr 06/14/24 21:00 06/14/24 22:47 Sodium Chloride IV Infused Q24H BETTYE Infusion Insulin Human Lispro 1 - 9 unit 06/14/24 08:00 06/15/24 11:30 Insulin Lispro 300 Unit/3 Ml Pen SUBQ 5 unit 0800,1200,1700,2100 BETTYE Administration Protocol Lactobacillus Rhamnosus 1 cap 06/14/24 09:00 06/14/24 11:49 Lactobacillus Rhamnosus Gg Capsule PO 1 cap DAILY BETTYE Administration Levothyroxine Sodium 112 mcg 06/15/24 07:00 06/15/24 06:40 Levothyroxine 112 Mcg Tablet PO 112 mcg QDAC BETTYE Administration Levothyroxine Sodium 25 mcg 06/15/24 07:00 06/15/24 06:40 Levothyroxine 25 Mcg Tablet PO 25 mcg QDAC BETTYE Administration Metoprolol Tartrate 25 mg 06/15/24 09:00 06/15/24 08:27 Metoprolol Tartrate 25 Mg Tablet PO Not Given BID BETTYE Non-Formulary Medication 100 mg 06/15/24 09:00 06/15/24 08:39 Sitagliptin Phosphate [Januvia] PO Not Given DAILY BETTYE Ondansetron HCl 4 mg 06/14/24 00:06 Ondansetron 4 Mg/2 Ml Vial IVP Q8H PRN Nausea / Vomiting Pantoprazole Sodium 40 mg 06/14/24 09:00 06/15/24 08:26 Pantoprazole 40 Mg Tablet PO 40 mg BID BETTYE Administration Paroxetine HCl 30 mg 06/14/24 12:00 06/15/24 08:36 Paroxetine 10 Mg Tablet PO 30 mg DAILY BETTYE Administration Polyethylene Glycol 17 gm 06/14/24 09:00 06/14/24 11:48 Polyethylene Glycol 3350 17 Gm Packet PO 17 gm DAILY BETTYE Administration Solifenacin 10 mg 06/14/24 21:00 06/14/24 21:30 Solifenacin Succinate 5 Mg Tablet PO 10 mg HS BETTYE Administration Objective Vital Signs/Intake & Output Reviewed Vital Signs: Yes Vital Signs: Vital Signs x48h Temp Pulse Pulse Resp BP Pulse Ox 06/15/24 09:00 97.5 F L 58 L 18 104/58 L 06/15/24 07:46 97.3 F L 54 L 16 91/47 L 92 06/15/24 05:38 65 18 Intake & Output: Intake & Output 06/12/24 06/13/24 06/14/24 06/15/24 23:59 23:59 23:59 23:59 Intake Total 1200 / 1200 5443 / 5443 1440 / 1440 Output Total 850 / 850 Balance 1200 / 1200 4593 / 4593 1440 / 1440 Weight (kg) 91.3 kg 81.5 kg Objective General Appearance: positive No acute distress and Alert; negative Anxious Eyes Bilateral: positive Normal inspection, PERRL and EOMI ENT: positive ENT inspection nml, Pharynx nml and No signs of dehydration Neck: positive Nml inspection, Thyroid nml and No JVD Respiratory: positive Chest non-tender, No respiratory distress and Breath sounds nml; negative Wheezes, Rales or Rhonchi Cardiovascular: positive Regular rate & rhythm and No murmur; negative Systolic murmur Abdomen: positive Non-tender, No organomegaly and No distention; negative Hepatomegaly or Splenomegaly Back: positive Nml inspection; negative CVA tenderness (R) or CVA tenderness (L) Skin: positive Color nml, No rash, Warm and Dry Extremities: positive Non-tender, Full ROM and No pedal edema Neurologic/Psychiatric: positive Oriented x3, Motor nml, Sensation nml and Mood/affect nml Lab Results 06/15/24 05:50 06/15/24 05:50 Other Labs: Lab Results x24hrs 06/15/24 06/15/24 06/15/24 Range/Units 11:17 07:36 05:50 WBC 18.9 H (4.8-10.8) x10^3/uL RBC 3.50 L (4.20-5.40) 10^6/uL Hgb 9.4 L (12.0-16.0) g/dL Hct 29.2 L (37.0-47.0) % MCV 83.4 (81.0-99.0) fL MCH 26.9 L (27.0-31.0) pg MCHC 32.2 (32.0-36.0) g/dL RDW 16.1 H (12.0-15.0) % Plt Count 288 (130-450) 10^3/uL MPV 10.9 H (7.9-10.8) fL Sodium 132 L (135-145) mmol/L Potassium 4.1 (3.5-4.5) mmol/L Chloride 102 (101-111) mmol/L Carbon Dioxide 22 (21-32) mmol/L Anion Gap 8.0 (6-13) BUN 30 H (6-20) mg/dL Creatinine 1.3 (0.6-1.3) mg/dL Estimated GFR (MDRD) 40 L (>89) Glucose 185 H (74-104) mg/dL POC Whole Bld Glucose 246 171 (70-100) mg/dL Estimat Average Glucose (70-100) mg/dL Hemoglobin A1c % (4.27-6.07) % Calcium 7.9 L (8.5-10.3) mg/dL Magnesium 1.9 (1.7-2.3) mg/dL 06/14/24 06/14/24 06/14/24 Range/Units 21:06 16:32 05:52 WBC (4.8-10.8) x10^3/uL RBC (4.20-5.40) 10^6/uL Hgb (12.0-16.0) g/dL Hct (37.0-47.0) % MCV (81.0-99.0) fL MCH (27.0-31.0) pg MCHC (32.0-36.0) g/dL RDW (12.0-15.0) % Plt Count (130-450) 10^3/uL MPV (7.9-10.8) fL Sodium (135-145) mmol/L Potassium (3.5-4.5) mmol/L Chloride (101-111) mmol/L Carbon Dioxide (21-32) mmol/L Anion Gap (6-13) BUN (6-20) mg/dL Creatinine (0.6-1.3) mg/dL Estimated GFR (MDRD) (>89) Glucose (74-104) mg/dL POC Whole Bld Glucose 340 236 (70-100) mg/dL Estimat Average Glucose 197 H (70-100) mg/dL Hemoglobin A1c % 8.5 H (4.27-6.07) % Calcium (8.5-10.3) mg/dL Magnesium (1.7-2.3) mg/dL Diagnostic Imaging Diagnostic Imaging Results: positive Final report reviewed Assessment/Plan Problem List (1) Sepsis: Impression: Patient presented with leukocytosis, as well as tachycardia. UA was positive for acute infection. CT abdomen/pelvis showed right-sided hydronephrosis, hydroureter with obstructing distal ureteral calcification. Urine culture has resulted in Proteus, which is pansensitive. Blood cultures drawn on 06/13, 1 out of 2, also are positive for gram-negative bacilli. Urology completed a cystoscopy with ureteral stent placement on 06/14. Continue IV Rocephin. Qualifiers: Acute renal failure type: unspecified Sepsis acute organ dysfunction status: with acute organ dysfunction Sepsis type: sepsis due to unspecified organism Severe sepsis acute organ dysfunction type: acute renal failure S evere sepsis shock status: without septic shock Qualified Code(s): A41.9 - Sepsis, unspecified organism; R65.20 - Severe sepsis without septic shock; N17.9 - Acute kidney failure, unspecified (2) Acute UTI: Impression: Management as above. (3) Acute kidney injury: Impression: Likely postrenal, due to obstruction as noted above. Continue IV fluids. Resolving. (4) Dehydration: Impression: Received adequate IV hydration. Continue IV fluid resuscitation at this time. Patient is trying to eat and drink more. (5) Depression: Impression: Continue home medications, Wellbutrin and paroxetine. Qualifiers: Depression Type: unspecified Qualified Code(s): F32.A - Depression, unspecified (6) Hypothyroidism: Impression: Continue levothyroxine daily. Qualifiers: Hypothyroidism type: unspecified Qualified Code(s): E03.9 - Hypothyroidism, unspecified (7) Hyperlipidemia: Impression: Continue statin. Qualifiers: Hyperlipidemia type: unspecified Qualified Code(s): E78.5 - Hyperlipidemia, unspecified (8) Diabetes: Impression: A1c checked 06/14 was 8.5. Continue hypoglycemic protocol, moderate dose sliding scale. Will see how her sugars do today, and what her correction will be, she may require long-acting insulin nightly. Qualifiers: Diabetes mellitus complication status: with other specified complication Diabetes mellitus residential insulin use: without residential use Diabetes mellitus type: type 2 Qualified Code(s): E11.69 - Type 2 diabetes mellitus with other specified complication (9) Pulmonary emboli: Impression: She was told she would need lifelong anticoagulation. Continue Eliquis 5 mg twice daily. Qualifiers: Pulmonary embolism type: multiple subsegmental (without acute cor pulmonale) Qualified Code(s): I26.94 - Multiple subsegmental pulmonary emboli without acute cor pulmonale (10) Hypertension: Impression: Patient has a history of hypertension. Currently borderline blood pressures. Continue metoprolol, at half dose, but have added parameters. Hold for systolic blood pressure less than 90, heart rate less than 60. Qualifiers: Hypertension type: unspecified Qualified Code(s): I10 - Essential (primary) hypertension
[2024-06-15] MEDS: PATIENT OWN MED PO SCH (13:45)
[2024-06-15] MEDS: LACTATED RINGERS 500 ML IV ONE (18:43)
[2024-06-16 05:54] LABS: HCT - HEMATOCRIT 28.6 % (37.0-47.0); HGB - HEMOGLOBIN 9.4 g/dL (12.0-16.0); MEAN CORPUSCULAR HEMOGLOBIN 27.2 pg (27.0-31.0); MEAN CORPUSCULAR HGB CONC 32.9 g/dL (32.0-36.0); MEAN CORPUSCULAR VOLUME 82.7 fL (81.0-99.0); MEAN PLATELET VOLUME 10.6 fL (7.9-10.8); RED BLOOD COUNT 3.46 10^6/uL (4.20-5.40); RED CELL DISTRIBUTION WIDTH 16.4 % (12.0-15.0); WHITE BLOOD COUNT 17.8 x10^3/uL (4.8-10.8)
[2024-06-16 06:04] LABS: MAGNESIUM 1.5 mg/dL (1.7-2.3)
[2024-06-16 06:10] LABS: CALCIUM 7.6 mg/dL (8.5-10.3); CREATININE 1.2 mg/dL (0.6-1.3); POTASSIUM 3.6 mmol/L (3.5-4.5)
--- NOTE | 2024-06-16 10:19 | PROVIDER PROGRESS NOTE ---
Subjective Subjective Subjective: Today, patient feels better. She has no fevers or chills. She does have some occasional dizziness, and has not really been getting out of bed too much. Current Medications Current Medications Current Medications: Current Medications Generic Name Dose Route Start Last Admin Trade Name Freq PRN Reason Stop Dose Admin Acetaminophen 650 mg 06/14/24 00:06 Acetaminophen 325 Mg Tablet PO Q6H PRN pain, fever Hydrocodone Bitart/Acetaminophen 1 tab 06/14/24 10:22 Hydrocod/Acetam 5/325 Mg Tablet PO Q4HR PRN Moderate Pain (Level 4-6) Apixaban 5 mg 06/14/24 09:00 06/16/24 09:01 Apixaban 5 Mg Tablet PO 5 mg BID BETTYE Administration Atorvastatin Calcium 5 mg 06/14/24 21:00 06/15/24 21:25 Atorvastatin 10 Mg Tablet PO 5 mg HS BETTYE Administration Budesonide 0.5 mg 06/14/24 07:00 06/16/24 08:47 Budesonide 0.5 Mg/2 Ml Neb INH 0.5 mg RTBID BETTYE Administration Bupropion HCl 150 mg 06/14/24 09:00 06/16/24 09:01 Bupropion Xl 150 Mg Tablet PO 150 mg DAILY BETTYE Administration Hydromorphone HCl 0.5 mg 06/14/24 10:22 Hydromorphone 0.5 Mg/0.5 Ml Syringe IVP Q4HR PRN Severe Pain (Level 7-10) Lactated Ringer's 1,000 mls @ 125 mls/hr 06/14/24 01:00 06/16/24 06:10 Lr IV 125 mls/hr .Q8H BETTYE Administration Ceftriaxone Sodium 1 gm/ 100 mls @ 200 mls/hr 06/14/24 21:00 06/15/24 22:29 Sodium Chloride IV Infused Q24H BETTYE Infusion Insulin Human Lispro 1 - 9 unit 06/14/24 08:00 06/16/24 09:00 Insulin Lispro 300 Unit/3 Ml Pen SUBQ Not Given 0800,1200,1700,2100 [facility] Protocol Lactobacillus Rhamnosus 1 cap 06/14/24 09:00 06/16/24 09:00 Lactobacillus Rhamnosus Gg Capsule PO 1 cap DAILY BETTYE Administration Levothyroxine Sodium 112 mcg 06/15/24 07:00 06/16/24 06:12 Levothyroxine 112 Mcg Tablet PO 112 mcg QDAC BETTYE Administration Levothyroxine Sodium 25 mcg 06/15/24 07:00 06/16/24 06:12 Levothyroxine 25 Mcg Tablet PO 25 mcg QDAC BETTYE Administration Ondansetron HCl 4 mg 06/14/24 00:06 Ondansetron 4 Mg/2 Ml Vial IVP Q8H PRN Nausea / Vomiting Pantoprazole Sodium 40 mg 06/14/24 09:00 06/16/24 09:00 Pantoprazole 40 Mg Tablet PO 40 mg BID BETTYE Administration Paroxetine HCl 30 mg 06/14/24 12:00 06/16/24 09:01 Paroxetine 10 Mg Tablet PO 30 mg DAILY BETTYE Administration Patient Own Medication 1 each 06/15/24 14:00 06/15/24 13:45 Patient Own Med PO 1 each DAILY BETTYE Administration Polyethylene Glycol 17 gm 06/14/24 09:00 06/16/24 09:01 Polyethylene Glycol 3350 17 Gm Packet PO 17 gm DAILY BETTYE Administration Solifenacin 10 mg 06/14/24 21:00 06/15/24 21:24 Solifenacin Succinate 5 Mg Tablet PO 10 mg HS BETTYE Administration Objective Vital Signs/Intake & Output Reviewed Vital Signs: Yes Vital Signs: Vital Signs x48h Temp Pulse Pulse Resp BP Pulse Ox 06/16/24 08:50 69 18 06/16/24 07:41 97.9 F 72 20 117/61 94 06/16/24 05:00 98.1 F 73 20 112/67 93 Intake & Output: Intake & Output 06/13/24 06/14/24 06/15/24 06/16/24 23:59 23:59 23:59 23:59 Intake Total 1200 / 1200 5443 / 5443 5003 / 5003 1760 / 1760 Output Total 850 / 850 600 / 600 900 / 900 Balance 1200 / 1200 4593 / 4593 4403 / 4403 860 / 860 Weight (kg) 91.3 kg 81.5 kg Objective General Appearance: positive No acute distress and Alert; negative Anxious Eyes Bilateral: positive Normal inspection, PERRL and EOMI ENT: positive ENT inspection nml, Pharynx nml and No signs of dehydration Neck: positive Nml inspection, Thyroid nml and No JVD Respiratory: positive Chest non-tender, No respiratory distress and Breath sounds nml; negative Wheezes, Rales or Rhonchi Cardiovascular: positive Regular rate & rhythm and No murmur; negative Systolic murmur Abdomen: positive Non-tender, No organomegaly and No distention; negative Hepatomegaly or Splenomegaly Back: positive Nml inspection; negative CVA tenderness (R) or CVA tenderness (L) Skin: positive Color nml, No rash, Warm and Dry Extremities: positive Non-tender, Full ROM and No pedal edema Neurologic/Psychiatric: positive Oriented x3, Motor nml, Sensation nml and Mood/affect nml Lab Results 06/16/24 05:40 06/16/24 05:40 Other Labs: Lab Results x24hrs 06/16/24 06/16/24 06/15/24 Range/Units 07:33 05:40 20:43 WBC 17.8 H (4.8-10.8) x10^3/uL RBC 3.46 L (4.20-5.40) 10^6/uL Hgb 9.4 L (12.0-16.0) g/dL Hct 28.6 L (37.0-47.0) % MCV 82.7 (81.0-99.0) fL MCH 27.2 (27.0-31.0) pg MCHC 32.9 (32.0-36.0) g/dL RDW 16.4 H (12.0-15.0) % Plt Count 312 (130-450) 10^3/uL MPV 10.6 (7.9-10.8) fL Sodium 137 (135-145) mmol/L Potassium 3.6 (3.5-4.5) mmol/L Chloride 107 (101-111) mmol/L Carbon Dioxide 24 (21-32) mmol/L Anion Gap 6.0 (6-13) BUN 26 H (6-20) mg/dL Creatinine 1.2 (0.6-1.3) mg/dL Estimated GFR (MDRD) 44 L (>89) Glucose 110 H (74-104) mg/dL POC Whole Bld Glucose 94 165 (70-100) mg/dL Calcium 7.6 L (8.5-10.3) mg/dL Magnesium 1.5 L (1.7-2.3) mg/dL 06/15/24 06/15/24 Range/Units 16:16 11:17 WBC (4.8-10.8) x10^3/uL RBC (4.20-5.40) 10^6/uL Hgb (12.0-16.0) g/dL Hct (37.0-47.0) % MCV (81.0-99.0) fL MCH (27.0-31.0) pg MCHC (32.0-36.0) g/dL RDW (12.0-15.0) % Plt Count (130-450) 10^3/uL MPV (7.9-10.8) fL Sodium (135-145) mmol/L Potassium (3.5-4.5) mmol/L Chloride (101-111) mmol/L Carbon Dioxide (21-32) mmol/L Anion Gap (6-13) BUN (6-20) mg/dL Creatinine (0.6-1.3) mg/dL Estimated GFR (MDRD) (>89) Glucose (74-104) mg/dL POC Whole Bld Glucose 173 246 (70-100) mg/dL Calcium (8.5-10.3) mg/dL Magnesium (1.7-2.3) mg/dL Diagnostic Imaging Diagnostic Imaging Results: positive Final report reviewed Assessment/Plan Problem List (1) Sepsis: Impression: Patient presented with leukocytosis, as well as tachycardia. UA was positive for acute infection. CT abdomen/pelvis showed right-sided hydronephrosis, hydroureter with obstructing distal ureteral calcification. Urine culture has resulted in Proteus, which is pansensitive. Leukocytosis is very slowly downtrending. Urology completed a cystoscopy with ureteral stent placement on 06/14. Continue IV Rocephin. Qualifiers: Acute renal failure type: unspecified Sepsis acute organ dysfunction status: with acute organ dysfunction Sepsis type: sepsis due to unspecified organism Severe sepsis acute organ dysfunction type: acute renal failure S evere sepsis shock status: without septic shock Qualified Code(s): A41.9 - Sepsis, unspecified organism; R65.20 - Severe sepsis without septic shock; N17.9 - Acute kidney failure, unspecified (2) Gram-negative bacteremia: Impression: 1 out of 2 blood cultures is positive for Proteus. Urine culture is also positive for Proteus, which is pansensitive. As such, patient is going to require 7-day course of IV antibiotics. (3) Acute UTI: Impression: Management as above. (4) Acute kidney injury: Impression: Likely postrenal, due to obstruction as noted above. Continue IV fluids. Resolving. (5) Dehydration: Impression: Received adequate IV hydration. Continue IV fluid resuscitation at this time. Patient is trying to eat and drink more. (6) Depression: Impression: Continue home medications, Wellbutrin and paroxetine. Qualifiers: Depression Type: unspecified Qualified Code(s): F32.A - Depression, unspecified (7) Hypothyroidism: Impression: Continue levothyroxine daily. Qualifiers: Hypothyroidism type: unspecified Qualified Code(s): E03.9 - Hypothyroidism, unspecified (8) Hyperlipidemia: Impression: Continue statin. Qualifiers: Hyperlipidemia type: unspecified Qualified Code(s): E78.5 - Hyperlipidemia, unspecified (9) Diabetes: Impression: A1c checked 06/14 was 8.5. Continue hypoglycemic protocol, moderate dose sliding scale. Will see how her sugars do today, and what her correction will be, she may require long-acting insulin nightly. Qualifiers: Diabetes mellitus complication status: with other specified complication Diabetes mellitus ferry terminal supervisor insulin use: without mcc use Diabetes mellitus type: type 2 Qualified Code(s): E11.69 - Type 2 diabetes mellitus with other specified complication (10) Pulmonary emboli: Impression: She was told she would need lifelong anticoagulation. Continue Eliquis 5 mg twice daily. Qualifiers: Pulmonary embolism type: multiple subsegmental (without acute cor pulmonale) Qualified Code(s): I26.94 - Multiple subsegmental pulmonary emboli without acute cor pulmonale (11) Hypertension: Impression: Patient has a history of hypertension. Currently borderline blood pressures. Home metoprolol held. Qualifiers: Hypertension type: unspecified Qualified Code(s): I10 - Essential (primary) hypertension
[2024-06-16] MEDS: ACETAMINOPHEN 325 MG TABLET PO PRN (22:37)
[2024-06-17] MEDS: HYDROcod/ACETAM 5/325 MG TABLET PO PRN (01:07)
[2024-06-17 05:29] LABS: HCT - HEMATOCRIT 27.2 % (37.0-47.0); HGB - HEMOGLOBIN 8.9 g/dL (12.0-16.0); MEAN CORPUSCULAR HEMOGLOBIN 26.6 pg (27.0-31.0); MEAN CORPUSCULAR HGB CONC 32.7 g/dL (32.0-36.0); MEAN CORPUSCULAR VOLUME 81.4 fL (81.0-99.0); MEAN PLATELET VOLUME 10.6 fL (7.9-10.8); RED BLOOD COUNT 3.34 10^6/uL (4.20-5.40); RED CELL DISTRIBUTION WIDTH 15.9 % (12.0-15.0); WHITE BLOOD COUNT 14.5 x10^3/uL (4.8-10.8)
[2024-06-17 05:45] LABS: CALCIUM 7.5 mg/dL (8.5-10.3); CREATININE 1.1 mg/dL (0.6-1.3); MAGNESIUM 1.2 mg/dL (1.7-2.3); POTASSIUM 3.4 mmol/L (3.5-4.5)
[2024-06-17] MEDS: MAGNESIUM OXIDE 400 MG TABLET PO SCH (08:49)
[2024-06-17] MEDS: METOPROLOL TARTRATE 50 MG TABLET PO SCH (08:50)
[2024-06-17] MEDS: POTASSIUM CHLORIDE 20 MEQ TABLET PO ONE (09:06)
--- NOTE | 2024-06-17 09:50 | Discharge Summary ---
Discharge Summary ALLERGIES Allergies Allergy/AdvReac Type Severity Reaction Status Date / Time cyclobenzaprine (From Allergy Severe Unknown Verified 06/06/24 05:26 Flexeril) Iodine and Iodide Containing Allergy Severe Rash Verified 06/06/24 05:26 Produc sulfamethoxazole (From Allergy Severe Rash Verified 06/06/24 05:26 Bactrim) trimethoprim (From Bactrim) Allergy Rash Verified 04/08/22 09:56 Iodinated Contrast Media AdvReac Mild Hives Verified 04/08/22 09:56 cyclobenzaprine HCl * (From AdvReac Unknown Verified 04/08/22 09:56 Flexeril) MEDICATIONS Ambulatory Orders Medication Instructions Recorded Confirmed rivaroxaban 20 mg tablet (Xarelto) 20 mg PO DAILY 04/04/17 06/14/24 paroxetine HCl 20 mg tablet See Rx Instructions .Route 03/19/24 06/14/24 .COMPLEX #90 tabs tolterodine 4 mg capsule,extended See Rx Instructions .Route 03/19/24 06/14/24 release 24 hr .COMPLEX #30 caps metoprolol tartrate 25 mg tablet 50 mg (2 x 25 mg) PO BID #180 tabs 05/29/24 06/14/24 acyclovir 5 % topical cream 1 applic topical 5XD 06/06/24 06/14/24 albuterol sulfate 90 mcg/actuation 2 inh inhalation Q6H PRN SOA 06/06/24 06/14/24 breath activated powder inhaler (ProAir RespiClick) blood sugar diagnostic [OneTouch 06/06/24 Verio test strips] bupropion HCl 150 mg 24 hr tablet, 150 mg PO QDAY 06/06/24 06/14/24 extended release (Wellbutrin XL) dulaglutide 0.75 mg/0.5 mL 0.75 mg subcut QWEEK 06/06/24 06/14/24 subcutaneous pen injector (Visitar) ketoconazole 2 % topical cream 1 applic topical BID 06/06/24 06/14/24 levothyroxine 137 mcg tablet 137 mcg PO QDAY 06/06/24 06/14/24 (Synthroid) syringe with needle 3 mL 25 gauge 06/06/24 x 1" (Monoject 3cc Syringe) diphenhydramine HCl 25 mg tablet 25 mg PO Q8H PRN allergy symptoms 06/14/24 06/14/24 (Allergy (diphenhydramine)) fluticasone propionate 50 1 spray intranasal DAILY PRN 06/14/24 06/14/24 mcg/actuation nasal allergy symptoms spray,suspension (24 Hour Allergy Relief) pantoprazole 40 mg tablet,delayed 40 mg PO BID 06/14/24 06/14/24 release sitagliptin phosphate 100 mg 100 mg PO DAILY 06/14/24 06/14/24 tablet (Januvia) magnesium oxide 400 mg (241.3 mg 400 mg PO DAILYWM #30 tabs 06/17/24 magnesium) tablet PHYSICAL EXAM AT DISCHARGE Vital Signs: Vital Signs x48h Temp Pulse Pulse Pulse Resp BP BP 06/17/24 12:07 98.1 F 64 24 126/66 06/17/24 08:50 74 141/71 H 06/17/24 08:01 74 20 06/17/24 07:58 97.9 F 83 20 06/17/24 05:00 97.9 F 80 20 BP Pulse Ox 06/17/24 12:07 95 06/17/24 08:50 06/17/24 08:01 06/17/24 07:58 141/71 H 93 06/17/24 05:00 158/80 H 94 LABS 06/17/24 05:09 06/17/24 05:09 Discharge Plan Discharge Patient Disposition: DC/Xfer Condition: Fair Prescriptions: New magnesium oxide 400 mg (241.3 mg magnesium) Tablet 400 mg PO DAILYWM Qty: 30 0RF Continued paroxetine HCl 20 mg tablet See Rx Instructions .ROUTE .COMPLEX Qty: 90 11RF Dose Instruction: TAKE 3 TABLETS DAILY (NEED TO BE SEEN FOR REFILLS) Rx Instructions: TAKE 3 TABLETS DAILY (NEED TO BE SEEN FOR REFILLS) tolterodine 4 mg capsule,extended release 24hr See Rx Instructions .ROUTE .COMPLEX Qty: 30 11RF Dose Instruction: TAKE 1 CAPSULE AT BEDTIME FOR BLADDER CONTROL(NEED APPOINTMENT FOR FURTHER REFILLS) Rx Instructions: TAKE 1 CAPSULE AT BEDTIME FOR BLADDER CONTROL(NEED APPOINTMENT FOR FURTHER REFILLS) metoprolol tartrate 25 mg tablet 50 mg PO BID Qty: 180 3RF ProAir RespiClick 90 mcg/actuation aerosol powdr breath activated 2 inh inhalation Q6H PRN (Reason: SOA) levothyroxine [Synthroid] 137 mcg tablet 137 mcg PO QDAY Trulicity 0.75 mg/0.5 mL pen injector 0.75 mg subcut QWEEK bupropion HCl [Wellbutrin XL] 150 mg tablet extended release 24 hr 150 mg PO QDAY acyclovir 5 % cream 1 applic topical 5XD (DME) Monoject 3cc Syr 25Gx1" 3 mL 25 gauge x 1" syringe See Rx Instructions .ROUTE Rx Instructions: Use 1 syringe intramuscularly once a day as directed use one syringe to inject b12 daily for one week and then use once a week for five weeks ketoconazole 2 % cream 1 applic topical BID (DME) blood sugar diagnostic [OneTouch Verio test strips] See Rx Instructions .ROUTE Rx Instructions: Boosted Boardstouch Ultra Blue in Vitro Strip .... Use 1 strip as directed once a day as directed Xarelto 20 MG tablet 20 mg PO DAILY Januvia 100 mg tablet 100 mg PO DAILY pantoprazole 40 mg tablet,delayed release (DR/EC) 40 mg PO BID diphenhydramine HCl [Allergy (diphenhydramine)] 25 mg tablet 25 mg PO Q8H PRN (Reason: allergy symptoms) fluticasone propionate [24 Hour Allergy Relief] 50 mcg/actuation spray,suspension 1 spray intranasal DAILY PRN (Reason: allergy symptoms) Rx Instructions: administer into each nostril Activity Restrictions: Activity as Tolerated Diet: Regular Health Concerns: You came in because you were fatigued, or feeling very weak at home. When you first got here, you were found to have a urinary tract infection. We did an abdomen/pelvis CT and it shows that you had an obstructive stone on your right side. You underwent a urological procedure, and a stent was placed. You will need to follow up with urology in the outpatient setting. It appeared that the infection has spread from your urine to your blood. As such, you are going to require total of 7 days of IV antibiotics. You received 4 days of IV antibiotics here, and we placed a PICC line so you can continue getting IV antibiotics for 3 additional days at your rehab facility. We are glad that you are feeling better. We will be keeping you and your son in our thoughts. We hope you continue to feel stronger! Print Language: Faroese Patient Instructions: Surgery Anesthesia After, Stents Ureteral Stand Alone Forms: SNF Discharge, PCP List Follow-up Care: Chung Newsome MD [Provider Admit Priv/Credential] - (You must call Dr. Newsome's office to follow-up to discuss your stones and your stent. You still have a stone and stent in place. You need further procedures to have these removed) Corinne Munoz PA-C [Primary Care Provider] -
--- NOTE | 2024-06-17 11:47 | PROVIDER PROGRESS NOTE ---
Subjective Subjective Subjective: Today, patient feels better. She has no fevers or chills. She does have some occasional dizziness, and has not really been getting out of bed too much. Current Medications Current Medications Current Medications: Current Medications Generic Name Dose Route Start Last Admin Trade Name Freq PRN Reason Stop Dose Admin Acetaminophen 650 mg 06/14/24 00:06 06/16/24 22:37 Acetaminophen 325 Mg Tablet PO 650 mg Q6H PRN Administration pain, fever Hydrocodone Bitart/Acetaminophen 1 tab 06/14/24 10:22 06/17/24 01:07 Hydrocod/Acetam 5/325 Mg Tablet PO 1 tab Q4HR PRN Administration Moderate Pain (Level 4-6) Apixaban 5 mg 06/14/24 09:00 06/17/24 08:50 Apixaban 5 Mg Tablet PO 5 mg BID BETTYE Administration Atorvastatin Calcium 5 mg 06/14/24 21:00 06/16/24 20:53 Atorvastatin 10 Mg Tablet PO 5 mg HS BETTYE Administration Budesonide 0.5 mg 06/14/24 07:00 06/17/24 08:01 Budesonide 0.5 Mg/2 Ml Neb INH 0.5 mg RTBID BETTYE Administration Bupropion HCl 150 mg 06/14/24 09:00 06/17/24 08:50 Bupropion Xl 150 Mg Tablet PO 150 mg DAILY BETTYE Administration Hydromorphone HCl 0.5 mg 06/14/24 10:22 Hydromorphone 0.5 Mg/0.5 Ml Syringe IVP Q4HR PRN Severe Pain (Level 7-10) Ceftriaxone Sodium 1 gm/ 100 mls @ 200 mls/hr 06/14/24 21:00 06/16/24 21:24 Sodium Chloride IV Infused Q24H BETTYE Infusion Insulin Human Lispro 1 - 9 unit 06/14/24 08:00 06/17/24 08:56 Insulin Lispro 300 Unit/3 Ml Pen SUBQ Not Given 0800,1200,1700,2100 [facility] Protocol Lactobacillus Rhamnosus 1 cap 06/14/24 09:00 06/17/24 08:49 Lactobacillus Rhamnosus Gg Capsule PO 1 cap DAILY BETTYE Administration Levothyroxine Sodium 112 mcg 06/15/24 07:00 06/17/24 06:47 Levothyroxine 112 Mcg Tablet PO 112 mcg QDAC BETTYE Administration Levothyroxine Sodium 25 mcg 06/15/24 07:00 06/17/24 06:47 Levothyroxine 25 Mcg Tablet PO 25 mcg QDAC BETTYE Administration Magnesium Oxide 400 mg 06/17/24 08:00 06/17/24 08:49 Magnesium Oxide 400 Mg Tablet PO 400 mg DAILYWM BETTYE Administration Metoprolol Tartrate 50 mg 06/17/24 09:00 06/17/24 08:50 Metoprolol Tartrate 50 Mg Tablet PO 50 mg BID BETTYE Administration Ondansetron HCl 4 mg 06/14/24 00:06 Ondansetron 4 Mg/2 Ml Vial IVP Q8H PRN Nausea / Vomiting Pantoprazole Sodium 40 mg 06/14/24 09:00 06/17/24 09:06 Pantoprazole 40 Mg Tablet PO 40 mg BID BETTYE Administration Paroxetine HCl 30 mg 06/14/24 12:00 06/17/24 08:51 Paroxetine 10 Mg Tablet PO 30 mg DAILY BETTYE Administration Patient Own Medication 1 each 06/15/24 14:00 06/17/24 08:52 Patient Own Med PO 1 each DAILY BETTYE Administration Polyethylene Glycol 17 gm 06/14/24 09:00 06/17/24 08:52 Polyethylene Glycol 3350 17 Gm Packet PO 17 gm DAILY BETTYE Administration Solifenacin 10 mg 06/14/24 21:00 06/16/24 20:53 Solifenacin Succinate 5 Mg Tablet PO 10 mg HS BETTYE Administration Objective Vital Signs/Intake & Output Reviewed Vital Signs: Yes Vital Signs: Vital Signs x48h Temp Pulse Pulse Pulse Resp BP BP 06/17/24 08:50 74 141/71 H 06/17/24 08:01 74 20 06/17/24 07:58 97.9 F 83 20 141/71 H 06/17/24 05:00 97.9 F 80 20 158/80 H Pulse Ox 06/17/24 08:50 06/17/24 08:01 06/17/24 07:58 93 06/17/24 05:00 94 Intake & Output: Intake & Output 06/14/24 06/15/24 06/16/24 06/17/24 23:59 23:59 23:59 23:59 Intake Total 5443 / 5443 5003 / 5003 4329 / 4329 2018 Output Total 850 / 850 600 / 600 2625 / 2625 2750 / 2750 Balance 4593 / 4593 4403 / 4403 1704 / 1704 -731 / -731 Weight (kg) 81.5 kg Objective General Appearance: positive No acute distress and Alert; negative Anxious Eyes Bilateral: positive Normal inspection, PERRL and EOMI ENT: positive ENT inspection nml, Pharynx nml and No signs of dehydration Neck: positive Nml inspection, Thyroid nml and No JVD Respiratory: positive Chest non-tender, No respiratory distress and Breath sounds nml; negative Wheezes, Rales or Rhonchi Cardiovascular: positive Regular rate & rhythm and No murmur; negative Systolic murmur Abdomen: positive Non-tender, No organomegaly and No distention; negative Hepatomegaly or Splenomegaly Back: positive Nml inspection; negative CVA tenderness (R) or CVA tenderness (L) Skin: positive Color nml, No rash, Warm and Dry Extremities: positive Non-tender, Full ROM and No pedal edema Neurologic/Psychiatric: positive Oriented x3, Motor nml, Sensation nml and Mood/affect nml Lab Results 06/17/24 05:09 06/17/24 05:09 Other Labs: Lab Results x24hrs 06/17/24 06/17/24 06/16/24 Range/Units 07:54 05:09 20:46 WBC 14.5 H (4.8-10.8) x10^3/uL RBC 3.34 L (4.20-5.40) 10^6/uL Hgb 8.9 L (12.0-16.0) g/dL Hct 27.2 L (37.0-47.0) % MCV 81.4 (81.0-99.0) fL MCH 26.6 L (27.0-31.0) pg MCHC 32.7 (32.0-36.0) g/dL RDW 15.9 H (12.0-15.0) % Plt Count 365 (130-450) 10^3/uL MPV 10.6 (7.9-10.8) fL Sodium 136 (135-145) mmol/L Potassium 3.4 L (3.5-4.5) mmol/L Chloride 105 (101-111) mmol/L Carbon Dioxide 25 (21-32) mmol/L Anion Gap 6.0 (6-13) BUN 15 (6-20) mg/dL Creatinine 1.1 (0.6-1.3) mg/dL Estimated GFR (MDRD) 49 L (>89) Glucose 117 H (74-104) mg/dL POC Whole Bld Glucose 116 142 (70-100) mg/dL Calcium 7.5 L (8.5-10.3) mg/dL Magnesium 1.2 L (1.7-2.3) mg/dL 06/16/24 Range/Units 16:21 WBC (4.8-10.8) x10^3/uL RBC (4.20-5.40) 10^6/uL Hgb (12.0-16.0) g/dL Hct (37.0-47.0) % MCV (81.0-99.0) fL MCH (27.0-31.0) pg MCHC (32.0-36.0) g/dL RDW (12.0-15.0) % Plt Count (130-450) 10^3/uL MPV (7.9-10.8) fL Sodium (135-145) mmol/L Potassium (3.5-4.5) mmol/L Chloride (101-111) mmol/L Carbon Dioxide (21-32) mmol/L Anion Gap (6-13) BUN (6-20) mg/dL Creatinine (0.6-1.3) mg/dL Estimated GFR (MDRD) (>89) Glucose (74-104) mg/dL POC Whole Bld Glucose 159 (70-100) mg/dL Calcium (8.5-10.3) mg/dL Magnesium (1.7-2.3) mg/dL Diagnostic Imaging Diagnostic Imaging Results: positive Final report reviewed Assessment/Plan Problem List (1) Sepsis: Impression: Patient presented with leukocytosis, as well as tachycardia. UA was positive for acute infection. CT abdomen/pelvis showed right-sided hydronephrosis, hydroureter with obstructing distal ureteral calcification. Urine culture has resulted in Proteus, which is pansensitive. Leukocytosis is very slowly downtrending. Urology completed a cystoscopy with ureteral stent placement on 06/14. Continue IV Rocephin. Will need 7-day course. Today is day 4 out of 7. Qualifiers: Acute renal failure type: unspecified Sepsis acute organ dysfunction status: with acute organ dysfunction Sepsis type: sepsis due to unspecified organism Severe sepsis acute organ dysfunction type: acute renal failure S evere sepsis shock status: without septic shock Qualified Code(s): A41.9 - Sepsis, unspecified organism; R65.20 - Severe sepsis without septic shock; N17.9 - Acute kidney failure, unspecified (2) Gram-negative bacteremia: Impression: 1 out of 2 blood cultures is positive for Proteus. Urine culture is also positive for Proteus, which is pansensitive. As such, patient is going to require 7-day course of IV antibiotics. (3) Acute UTI: Impression: Management as above. (4) Acute kidney injury: Impression: Resolved. Likely postrenal, due to obstruction as noted above. Stop IV fluids, encourage P.O. intake. (5) Dehydration: Impression: Received adequate IV hydration. Stop IV fluids, encourage P.O. intake. (6) Depression: Impression: Continue home medications, Wellbutrin and paroxetine. Qualifiers: Depression Type: unspecified Qualified Code(s): F32.A - Depression, unspecified (7) Hypothyroidism: Impression: Continue levothyroxine daily. Qualifiers: Hypothyroidism type: unspecified Qualified Code(s): E03.9 - Hypothyroidism, unspecified (8) Hyperlipidemia: Impression: Continue statin. Qualifiers: Hyperlipidemia type: unspecified Qualified Code(s): E78.5 - Hyperlipidemia, unspecified (9) Diabetes: Impression: A1c checked 06/14 was 8.5. Continue hypoglycemic protocol, moderate dose sliding scale. Will see how her sugars do today, and what her correction will be, she may require long-acting insulin nightly. 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 Continue Eliquis 5 mg twice daily. Qualifiers: Pulmonary embolism type: multiple subsegmental (without acute cor pulmonale) Qualified Code(s): I26.94 - Multiple subsegmental pulmonary emboli without acute cor pulmonale (11) Hypertension: Impression: Patient has a history of hypertension. Continue metoprolol today with improvement of blood pressure. Qualifiers: Hypertension type: unspecified Qualified Code(s): I10 - Essential (primary) hypertension
--- NOTE | 2024-06-17 12:20 | PROVIDER PROGRESS NOTE ---
Subjective Subjective Subjective: Today, patient feels better. She has no fevers or chills. She has minimal dysuria noted. She is agreeable to go to rehab today. She is medically cleared for discharge today. Current Medications Current Medications Current Medications: Current Medications Generic Name Dose Route Start Last Admin Trade Name Freq PRN Reason Stop Dose Admin Acetaminophen 650 mg 06/14/24 00:06 06/16/24 22:37 Acetaminophen 325 Mg Tablet PO 650 mg Q6H PRN Administration pain, fever Hydrocodone Bitart/Acetaminophen 1 tab 06/14/24 10:22 06/17/24 01:07 Hydrocod/Acetam 5/325 Mg Tablet PO 1 tab Q4HR PRN Administration Moderate Pain (Level 4-6) Apixaban 5 mg 06/14/24 09:00 06/17/24 08:50 Apixaban 5 Mg Tablet PO 5 mg BID BETTYE Administration Atorvastatin Calcium 5 mg 06/14/24 21:00 06/16/24 20:53 Atorvastatin 10 Mg Tablet PO 5 mg HS BETTYE Administration Budesonide 0.5 mg 06/14/24 07:00 06/17/24 08:01 Budesonide 0.5 Mg/2 Ml Neb INH 0.5 mg RTBID BETTYE Administration Bupropion HCl 150 mg 06/14/24 09:00 06/17/24 08:50 Bupropion Xl 150 Mg Tablet PO 150 mg DAILY BETTYE Administration Hydromorphone HCl 0.5 mg 06/14/24 10:22 Hydromorphone 0.5 Mg/0.5 Ml Syringe IVP Q4HR PRN Severe Pain (Level 7-10) Ceftriaxone Sodium 1 gm/ 100 mls @ 200 mls/hr 06/14/24 21:00 06/16/24 21:24 Sodium Chloride IV Infused Q24H BETTYE Infusion Insulin Human Lispro 1 - 9 unit 06/14/24 08:00 06/17/24 08:56 Insulin Lispro 300 Unit/3 Ml Pen SUBQ Not Given 0800,1200,1700,2100 [facility] Protocol Lactobacillus Rhamnosus 1 cap 06/14/24 09:00 06/17/24 08:49 Lactobacillus Rhamnosus Gg Capsule PO 1 cap DAILY BETTYE Administration Levothyroxine Sodium 112 mcg 06/15/24 07:00 06/17/24 06:47 Levothyroxine 112 Mcg Tablet PO 112 mcg QDAC BETTYE Administration Levothyroxine Sodium 25 mcg 06/15/24 07:00 06/17/24 06:47 Levothyroxine 25 Mcg Tablet PO 25 mcg QDAC BETTYE Administration Magnesium Oxide 400 mg 06/17/24 08:00 06/17/24 08:49 Magnesium Oxide 400 Mg Tablet PO 400 mg DAILYWM BETTYE Administration Metoprolol Tartrate 50 mg 06/17/24 09:00 06/17/24 08:50 Metoprolol Tartrate 50 Mg Tablet PO 50 mg BID BETTYE Administration Ondansetron HCl 4 mg 06/14/24 00:06 Ondansetron 4 Mg/2 Ml Vial IVP Q8H PRN Nausea / Vomiting Pantoprazole Sodium 40 mg 06/14/24 09:00 06/17/24 09:06 Pantoprazole 40 Mg Tablet PO 40 mg BID BETTYE Administration Paroxetine HCl 30 mg 06/14/24 12:00 06/17/24 08:51 Paroxetine 10 Mg Tablet PO 30 mg DAILY BETTYE Administration Patient Own Medication 1 each 06/15/24 14:00 06/17/24 08:52 Patient Own Med PO 1 each DAILY BETTYE Administration Polyethylene Glycol 17 gm 06/14/24 09:00 06/17/24 08:52 Polyethylene Glycol 3350 17 Gm Packet PO 17 gm DAILY BETTYE Administration Solifenacin 10 mg 06/14/24 21:00 06/16/24 20:53 Solifenacin Succinate 5 Mg Tablet PO 10 mg HS BETTYE Administration Objective Vital Signs/Intake & Output Reviewed Vital Signs: Yes Vital Signs: Vital Signs x48h Temp Pulse Pulse Pulse Resp BP BP 06/17/24 12:07 98.1 F 64 24 126/66 06/17/24 08:50 74 141/71 H 06/17/24 08:01 74 20 06/17/24 07:58 97.9 F 83 20 06/17/24 05:00 97.9 F 80 20 BP Pulse Ox 06/17/24 12:07 95 06/17/24 08:50 06/17/24 08:01 06/17/24 07:58 141/71 H 93 06/17/24 05:00 158/80 H 94 Intake & Output: Intake & Output 06/14/24 06/15/24 06/16/24 06/17/24 23:59 23:59 23:59 23:59 Intake Total 5443 / 5443 5003 / 5003 4329 / 4329 2018 Output Total 850 / 850 600 / 600 2625 / 2625 2750 / 2750 Balance 4593 / 4593 4403 / 4403 1704 / 1704 -731 / -731 Weight (kg) 81.5 kg Objective General Appearance: positive No acute distress and Alert; negative Anxious Eyes Bilateral: positive Normal inspection, PERRL and EOMI ENT: positive ENT inspection nml, Pharynx nml and No signs of dehydration Neck: positive Nml inspection, Thyroid nml and No JVD Respiratory: positive Chest non-tender, No respiratory distress and Breath sounds nml; negative Wheezes, Rales or Rhonchi Cardiovascular: positive Regular rate & rhythm and No murmur; negative Systolic murmur Abdomen: positive Non-tender, No organomegaly and No distention; negative Hepatomegaly or Splenomegaly Back: positive Nml inspection; negative CVA tenderness (R) or CVA tenderness (L) Skin: positive Color nml, No rash, Warm and Dry Extremities: positive Non-tender, Full ROM and No pedal edema Neurologic/Psychiatric: positive Oriented x3, Motor nml, Sensation nml and Mood/affect nml Lab Results 06/17/24 05:09 06/17/24 05:09 Other Labs: Lab Results x24hrs 06/17/24 06/17/24 06/17/24 Range/Units 12:04 07:54 05:09 WBC 14.5 H (4.8-10.8) x10^3/uL RBC 3.34 L (4.20-5.40) 10^6/uL Hgb 8.9 L (12.0-16.0) g/dL Hct 27.2 L (37.0-47.0) % MCV 81.4 (81.0-99.0) fL MCH 26.6 L (27.0-31.0) pg MCHC 32.7 (32.0-36.0) g/dL RDW 15.9 H (12.0-15.0) % Plt Count 365 (130-450) 10^3/uL MPV 10.6 (7.9-10.8) fL Sodium 136 (135-145) mmol/L Potassium 3.4 L (3.5-4.5) mmol/L Chloride 105 (101-111) mmol/L Carbon Dioxide 25 (21-32) mmol/L Anion Gap 6.0 (6-13) BUN 15 (6-20) mg/dL Creatinine 1.1 (0.6-1.3) mg/dL Estimated GFR (MDRD) 49 L (>89) Glucose 117 H (74-104) mg/dL POC Whole Bld Glucose 153 116 (70-100) mg/dL Calcium 7.5 L (8.5-10.3) mg/dL Magnesium 1.2 L (1.7-2.3) mg/dL 06/16/24 06/16/24 Range/Units 20:46 16:21 WBC (4.8-10.8) x10^3/uL RBC (4.20-5.40) 10^6/uL Hgb (12.0-16.0) g/dL Hct (37.0-47.0) % MCV (81.0-99.0) fL MCH (27.0-31.0) pg MCHC (32.0-36.0) g/dL RDW (12.0-15.0) % Plt Count (130-450) 10^3/uL MPV (7.9-10.8) fL Sodium (135-145) mmol/L Potassium (3.5-4.5) mmol/L Chloride (101-111) mmol/L Carbon Dioxide (21-32) mmol/L Anion Gap (6-13) BUN (6-20) mg/dL Creatinine (0.6-1.3) mg/dL Estimated GFR (MDRD) (>89) Glucose (74-104) mg/dL POC Whole Bld Glucose 142 159 (70-100) mg/dL Calcium (8.5-10.3) mg/dL Magnesium (1.7-2.3) mg/dL Diagnostic Imaging Diagnostic Imaging Results: positive Final report reviewed Assessment/Plan Problem List (1) Sepsis: Impression: Patient presented with leukocytosis, as well as tachycardia. UA was positive for acute infection. CT abdomen/pelvis showed right-sided hydronephrosis, hydroureter with obstructing distal ureteral calcification. Urine culture has resulted in Proteus, which is pansensitive. Leukocytosis is very slowly downtrending. Urology completed a cystoscopy with ureteral stent placement on 4/4. Continue IV Rocephin for 7 day total, last day of treatment is 06/20/24. Qualifiers: Acute renal failure type: unspecified Sepsis acute organ dysfunction status: with acute organ dysfunction Sepsis type: sepsis due to unspecified organism Severe sepsis acute organ dysfunction type: acute renal failure S evere sepsis shock status: without septic shock Qualified Code(s): A41.9 - Sepsis, unspecified organism; R65.20 - Severe sepsis without septic shock; N17.9 - Acute kidney failure, unspecified (2) Gram-negative bacteremia: Impression: 1 out of 2 blood cultures is positive for Proteus. Urine culture is also positive for Proteus, which is pansensitive. As such, patient is going to require 7-day course of IV antibiotics. Plan for PICC line placement today. (3) Acute UTI: Impression: Management as above. (4) Acute kidney injury: Impression: Likely postrenal, due to obstruction as noted above. Continue IV fluids. Resolving. (5) Dehydration: Impression: Received adequate IV hydration. Continue IV fluid resuscitation at this time. Patient is trying to eat and drink more. (6) Depression: Impression: Continue home medications, Wellbutrin and paroxetine. Qualifiers: Depression Type: unspecified Qualified Code(s): F32.A - Depression, unspecified (7) Hypothyroidism: Impression: Continue levothyroxine daily. Qualifiers: Hypothyroidism type: unspecified Qualified Code(s): E03.9 - Hypothyroidism, unspecified (8) Hyperlipidemia: Impression: Continue statin. Qualifiers: Hyperlipidemia type: unspecified Qualified Code(s): E78.5 - Hyperlipidemia, unspecified (9) Diabetes: Impression: A1c checked 06/14 was 8.5. Continue hypoglycemic protocol, moderate dose sliding scale. Will see how her sugars do today, and what her correction will be, she may require long-acting insulin nightly. 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 Continue Eliquis 5 mg twice daily. Qualifiers: Pulmonary embolism type: multiple subsegmental (without acute cor pulmonale) Qualified Code(s): I26.94 - Multiple subsegmental pulmonary emboli without acute cor pulmonale (11) Hypertension: Impression: Patient has a history of hypertension. Currently metoprolol. Qualifiers: Hypertension type: unspecified Qualified Code(s): I10 - Essential (primary) hypertension
--- NOTE | 2024-06-17 12:34 | XRAY Report ---
PROCEDURE: XR Chest for Line Placement INDICATIONS: PICC line placement TECHNIQUE: One view of the chest was acquired. COMPARISON: Chest radiograph 06/13/2024 FINDINGS: Surgical changes and devices: Presumed right-sided PICC is seen looping in the subclavian region wit h tip lateral to the [id number] of this exam. No additional central venous catheter is seen. Lungs and pleura: Mild bilateral interstitial prominence. No pleural effusion or pneumothorax. No fo piper consolidation. Mediastinum: Mediastinal contours appear normal. Heart size is normal. Bones and chest wall: No suspicious bony lesions. Overlying soft tissues appear unremarkable. IMPRESSION: Right-sided PICC is seen in abnormal position looping in the subclavian region. Recommend replacement . Attempts to contact the treating provider at the time of this dictation were unsuccessful and additio nal attempts will be made. Reviewed by: Atul Macario MD on 06/17/2024 12:33 PM PDT Approved by: Atul Macario MD on 06/17/2024 12:33 PM PDT Station ID: [id number]
--- NOTE | 2024-06-17 13:15 | XRAY Report ---
PROCEDURE: XR Chest for Line Placement INDICATIONS: PICC line placement TECHNIQUE: One view of the chest was acquired. COMPARISON: 06/13/2024. FINDINGS: Surgical changes and devices: Right upper extremity PICC is visualized with the distal tip coiled in the level of distal brachiocephalic vein. Lungs and pleura: No pleural effusions or pneumothorax. No consolidation. Mediastinum: Mediastinal contours appear normal. Heart size is normal. Bones and chest wall: No suspicious bony lesions. Overlying soft tissues appear unremarkable. IMPRESSION: Right upper extremity PICC with distal tip coiled near the level of the distal brachiocephalic vein. Per report, the PICC has been repositioned currently. Otherwise, no acute cardiopulmonary abnormality seen. Reviewed by: Winston Kramer MD on 06/17/2024 1:14 PM PDT Approved by: Winston Kramer MD on 06/17/2024 1:14 PM PDT Station ID: [id number]
[2024-06-17] MEDS: lidocaine 1% 20 ML MDV SUBQ ONE (14:51)
--- NOTE | 2024-06-17 15:02 | ANESTHESIA PROCEDURE NOTE ---
Anesth Central Line Template Central Line Procedure Date: 06/17/24 Central Line Preparation: Consent Obtained, Time out completed, Ultrasound used and Sterile prep and drape Central line location: Right Basilic Central line type: PICC Single Lumen Central line catheter tip site resides: Superior vena cava (SVC) Central line aftercare: Secured, Placement confirmed, No pneumothorax, No complications, Bundle checklist complete and Pt tolerated well
--- NOTE | 2024-06-17 15:19 | CONSULTATION NOTE ---
Consultation Report: PICC line placed in the RUE, attempt x2. U/S guided. First attempt line coiled back on itself in the axilla and unable to thread to proper placement after several attempts to reposition. Line removed and maintained. 2nd [id number] in RUE successful, placed with U/S guidance and sterile technique. Line trimmed to 43cm, secured with statlock and sterile dressing applied. Placement confirmed with port CXR. [facility] Active Problems All Active Problems (Updated 06/17/24 @ 09:50 by Ester Peña MD) Hypomagnesemia (Acute) Gram-negative bacteremia (Acute) Acute kidney injury (Acute) Dehydration (Acute) Acute UTI (Acute) Sepsis (Acute) Allergic rhinitis, seasonal (Acute) GERD (gastroesophageal reflux disease) (Acute) Depression (Acute) Peripheral neuropathy (Acute) Cough (Acute) Urge incontinence (Acute) Herpes labialis (Acute) Rheumatoid arthritis (Acute) Bowel incontinence (Acute) Chronic low back pain (Acute) Thyromegaly (Acute) HILTON (obstructive sleep apnea) (Acute) Recurrent UTI (Acute) Actinic keratosis (Acute) Chronic diarrhea (Acute) Screening for malignant neoplasm of colon (Acute) Visual hallucinations (Acute) Mixed headache (Acute) B12 deficiency (Acute) Leukocytosis (Acute) Chronic renal insufficiency (Acute) Tremor, essential (Acute) Abnormal mammogram of right breast (Acute) Abnormal mammogram of left breast (Acute) Hand pain, right (Acute) Hip pain, right (Acute) Palpitations (Acute) Frequent falls (Acute) Physical deconditioning (Acute) SOB (shortness of breath) (Acute) Sinusitis, acute (Acute) Hallucinations (Acute) Ankle pain, right (Acute) Cerumen impaction (Acute) Metatarsal bone fracture (Acute) C. difficile diarrhea (Acute) Adrenal mass (Acute) Hypothyroidism (Acute) Asthma (Acute) Hypertension (Acute) Hyperlipidemia (Acute) Diabetes (Acute) Pulmonary emboli (Acute) Hypoxia (Acute) Dyspnea (Acute) Chest pain (Acute) Social History Social History (Updated 06/13/24 @ 21:02 by Doris Patricio RN) Smoking Status: Never smoker Do you dip or chew tobacco?: No Do you vape?: No Living arrangement: At home Living Condition: With spouse/s.o. Support Person: Yes Relationship: Level: Independent Home Mobility Equipment: Walker Do you feel safe in your home environment?: Yes Suffered physical, verbal, emotional, or financial abuse?: No History of Abuse: No POLST Patient has POLST: No Conclusion/Plan Problem List (1) Sepsis: Qualifiers: Acute renal failure type: unspecified Sepsis acute organ dysfunction status: with acute organ dysfunction Sepsis type: sepsis due to unspecified organism Severe sepsis acute organ dysfunction type: acute renal failure S evere sepsis shock status: without septic shock Qualified Code(s): A41.9 - Sepsis, unspecified organism; R65.20 - Severe sepsis without septic shock; N17.9 - Acute kidney failure, unspecified (2) Gram-negative bacteremia: (3) Acute UTI: (4) Acute kidney injury: (5) Dehydration: (6) Depression: Qualifiers: Depression Type: unspecified Qualified Code(s): F32.A - Depression, unspecified (7) Hypothyroidism: Qualifiers: Hypothyroidism type: unspecified Qualified Code(s): E03.9 - Hypothyroidism, unspecified (8) Hyperlipidemia: Qualifiers: Hyperlipidemia type: unspecified Qualified Code(s): E78.5 - Hyperlipidemia, unspecified (9) Diabetes: Qualifiers: Diabetes mellitus type: type 2 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 home use Diabetes mellitus complication status: with other specified complication Qualified Code(s): E11.69 - Type 2 diabetes mellitus with other specified complication (10) Pulmonary emboli: Qualifiers: Pulmonary embolism type: multiple subsegmental (without acute cor pulmonale) Qualified Code(s): I26.94 - Multiple subsegmental pulmonary emboli without acute cor pulmonale (11) Hypertension: Qualifiers: Hypertension type: unspecified Qualified Code(s): I10 - Essential (primary) hypertension Lab Results 06/17/24 05:09 06/17/24 05:09 Meds/Allgy Home Medications Ambulatory Orders Medication Instructions Recorded Confirmed rivaroxaban 20 mg tablet (Xarelto) 20 mg PO DAILY 04/04/17 06/14/24 paroxetine HCl 20 mg tablet See Rx Instructions .Route 03/19/24 06/14/24 .COMPLEX #90 tabs tolterodine 4 mg capsule,extended See Rx Instructions .Route 03/19/24 06/14/24 release 24 hr .COMPLEX #30 caps metoprolol tartrate 25 mg tablet 50 mg (2 x 25 mg) PO BID #180 tabs 05/29/24 06/14/24 acyclovir 5 % topical cream 1 applic topical 5XD 06/06/24 06/14/24 albuterol sulfate 90 mcg/actuation 2 inh inhalation Q6H PRN SOA 06/06/24 06/14/24 breath activated powder inhaler (ProAir RespiClick) blood sugar diagnostic [OneTouch 06/06/24 Verio test strips] bupropion HCl 150 mg 24 hr tablet, 150 mg PO QDAY 06/06/24 06/14/24 extended release (Wellbutrin XL) dulaglutide 0.75 mg/0.5 mL 0.75 mg subcut QWEEK 06/06/24 06/14/24 subcutaneous pen injector (Urban Matrix) ketoconazole 2 % topical cream 1 applic topical BID 06/06/24 06/14/24 levothyroxine 137 mcg tablet 137 mcg PO QDAY 06/06/24 06/14/24 (Synthroid) syringe with needle 3 mL 25 gauge 06/06/24 x 1" (Monoject 3cc Syringe) diphenhydramine HCl 25 mg tablet 25 mg PO Q8H PRN allergy symptoms 06/14/24 06/14/24 (Allergy (diphenhydramine)) fluticasone propionate 50 1 spray intranasal DAILY PRN 06/14/24 06/14/24 mcg/actuation nasal allergy symptoms spray,suspension (24 Hour Allergy Relief) pantoprazole 40 mg tablet,delayed 40 mg PO BID 06/14/24 06/14/24 release sitagliptin phosphate 100 mg 100 mg PO DAILY 06/14/24 06/14/24 tablet (Januvia) magnesium oxide 400 mg (241.3 mg 400 mg PO DAILYWM #30 tabs 06/17/24 magnesium) tablet Allergies Allergies Allergy/AdvReac Type Severity Reaction Status Date / Time cyclobenzaprine (From Allergy Severe Unknown Verified 06/06/24 05:26 Flexeril) Iodine and Iodide Containing Allergy Severe Rash Verified 06/06/24 05:26 Produc sulfamethoxazole (From Allergy Severe Rash Verified 06/06/24 05:26 Bactrim) trimethoprim (From Bactrim) Allergy Rash Verified 04/08/22 09:56 Iodinated Contrast Media AdvReac Mild Hives Verified 04/08/22 09:56 cyclobenzaprine HCl * (From AdvReac Unknown Verified 04/08/22 09:56 Flexeril) Anesthesia Exam (Expanded) Exam Dental: Other (edentulous) Exam Exam Vital Signs: Vital Signs x48h Temp Pulse Pulse Resp BP BP BP 06/17/24 12:07 36.7 C 64 24 126/66 06/17/24 08:50 74 141/71 H 06/17/24 08:01 74 20 06/17/24 07:58 36.6 C 83 20 141/71 H Pulse Ox 06/17/24 12:07 95 06/17/24 08:50 06/17/24 08:01 06/17/24 07:58 93
--- NOTE | 2024-06-17 15:24 | XRAY Report ---
PROCEDURE: XR Chest for Line Placement INDICATIONS: PICC line placement TECHNIQUE: One view of the chest was acquired. COMPARISON: Chest radiographs 06/17/2024 FINDINGS: Surgical changes and devices: Right PICC is seen with tip projecting over the lower superior vena ca va appear Lungs and pleura: Bilateral interstitial opacities appear mildly increased, which may be exaggerated by the degree of inspiration Mediastinum: Cardiac silhouette is upper limits of normal in size Bones and chest wall: No suspicious bony lesions. Overlying soft tissues appear unremarkable. IMPRESSION: Right PICC in appropriate position with tip projecting over the lower superior vena cava. Increased interstitial prominence may be accentuated by patient positioning and level of inspiration, but mild edema or an atypical or viral infection is not excluded. Reviewed by: Atul Macario MD on 06/17/2024 3:22 PM PDT Approved by: Atul Macario MD on 06/17/2024 3:22 PM PDT Station ID: [id number]
[2024-06-17 17:48] VITALS: TEMP 98.8; O2SAT 93
[2024-06-18 01:36] VITALS: BP 121/55
[2024-06-18 05:36] LABS: HCT - HEMATOCRIT 29.3 % (37.0-47.0); HGB - HEMOGLOBIN 9.5 g/dL (12.0-16.0); MEAN CORPUSCULAR HEMOGLOBIN 26.4 pg (27.0-31.0); MEAN CORPUSCULAR HGB CONC 32.4 g/dL (32.0-36.0); MEAN CORPUSCULAR VOLUME 81.4 fL (81.0-99.0); MEAN PLATELET VOLUME 10.2 fL (7.9-10.8); RED BLOOD COUNT 3.6 10^6/uL (4.20-5.40); RED CELL DISTRIBUTION WIDTH 15.5 % (12.0-15.0); WHITE BLOOD COUNT 19.4 x10^3/uL (4.8-10.8)
[2024-06-18 06:03] LABS: CALCIUM 7.4 mg/dL (8.5-10.3); POTASSIUM 3.4 mmol/L (3.5-4.5)
--- NOTE | 2024-06-18 09:22 | Discharge Summary ---
Discharge Summary Admit Date: 06/14/24 Discharge Date: 06/18/24 Discharging Provider: Tahmina Anguiano MD Primary Care Provider: Cornine Munoz PA-C Code Status: Attempt Resuscitation Discharge Facility Name: [facility] DIAGNOSES Discharge Diagnoses with Status of Each Condition: 1. Sepsis 2. UTI With gram-negative bacteremia 3. Acute kidney injury 4. Dehydration 5. Acute depression 6. Hypothyroidism 7. Hyperlipidemia 8. Type 2 diabetes mellitus, controlled, without complications 9. Pulmonary emboli history 10. Hypertension HPI History of Present Illness: pt with h/o t2dm and PE, on xarelto, presents with sister to hospital, d/t reports of confusion and ams. pt moved into new apartment with son, who has developmental delay and t1dm. 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 sister states that she is visiting pt and noticed that in the last 24 h, pt has been more confused and tired, and was laying in bed, having urinated on herself for and unknown period of time. sister states their apartment in disarray and is concerned that pt is unable to care for herself of her son properly. sister lives in [place], and pt has another son with CVA, and another one who lives far away and works full decator operator. in addition to health concerns, both would like to discuss with social science teacher about placement and home health options. pt states that she has not feeling well, and has had frequent falls but no loc or head injuries. she does state that after receiving IVF and treatment in ER, she feels more awake and energetic, and reports some abdominal discomfort and burning with urination. no hematuria. no chest pain, but has some sob. no fevers but feels chills. she does feel nauseated. HOSPITAL COURSE Hospital Course: (1) Sepsis: Impression: Patient presented with leukocytosis, as well as tachycardia. UA was positive for acute infection. CT abdomen/pelvis showed right-sided hydronephrosis, hydroureter with obstructing distal ureteral calcification. Urine culture has resulted in Proteus, which is pansensitive. Leukocytosis is very slowly downtrending but today she went from 14.5 to 19.4. There is no fever, abdominal pain or confusion with this change in WBC. As such, she can still be discharged today with her IV antibiotics. Urology completed a cystoscopy with ureteral stent placement on 06/14. Continue IV Rocephin for 7 day total, last day of treatment is 06/20/24. Qualifiers: Acute renal failure type: unspecified Sepsis acute organ dysfunction status: with acute organ dysfunction Sepsis type: sepsis due to unspecified organism Severe sepsis acute organ dysfunction type: acute renal failure S evere sepsis shock status: without septic shock Qualified Code(s): A41.9 - Sepsis, unspecified organism; R65.20 - Severe sepsis without septic shock; N17.9 - Acute kidney failure, unspecified (2) Gram-negative bacteremia: Impression: 1 out of 2 blood cultures is positive for Proteus. Urine culture is also positive for Proteus, which is pansensitive. As such, patient is going to require 7-day course of IV antibiotics. PICC was placed 06/18/24 but was not in the correct place by film. The line had to be redone and delayed discharge on 06/17. (3) Acute UTI: Impression: Management as above. (4) Acute kidney injury: Impression: Likely postrenal, due to obstruction as noted above. Her baseline creatinine is 1.1. On admission she was 2.1. She stayed that way for 2 days and today at discharge she is 1.0. (5) Dehydration: Impression: Received adequate IV hydration. We also encouraged her to eat and drink to help her kidneys. Her oral intake is still sparse. When she first was admitted she was drinking up to a liter and a half. Over the last 2 days she has only been drinking about 750 cc a day. We will would recommend that she continue to have encouragement to drink at least a liter of fluid a day. (6) Depression: Impression: She was continued home medications, Wellbutrin and paroxetine. Qualifiers: Depression Type: unspecified Qualified Code(s): F32.A - Depression, unspecified (7) Hypothyroidism: Impression: She was continued on levothyroxine daily. It was noted that she was over suppressed in 2022. Her TSH was 0.09, less than 0.08, 0.16. In May 2023 she was 0.73. With this admission her TSH is 4.59 and normal. Qualifiers: Hypothyroidism type: unspecified Qualified Code(s): E03.9 - Hypothyroidism, unspecified (8) Hyperlipidemia: Impression: She was continued statin. Qualifiers: Hyperlipidemia type: unspecified Qualified Code(s): E78.5 - Hyperlipidemia, unspecified (9) Diabetes: Impression: A1c checked 06/14 was 8.5. Continue hypoglycemic protocol, moderate dose sliding scale. Will see how her sugars do today, and what her correction will be, she may require long-acting insulin nightly. Qualifiers: Diabetes mellitus complication status: with other specified complication Diabetes mellitus remote computer terminal operator insulin use: without remote computer terminal operator use Diabetes mellitus type: type 2 Qualified Code(s): E11.69 - Type 2 diabetes mellitus with other specified complication (10) Pulmonary emboli: Impression: She was told she would need lifelong anticoagulation. Continue Eliquis 5 mg twice daily. Qualifiers: Pulmonary embolism type: multiple subsegmental (without acute cor pulmonale) Qualified Code(s): I26.94 - Multiple subsegmental pulmonary emboli without acute cor pulmonale (11) Hypertension: Impression: Patient has a history of hypertension. Currently metoprolol. Qualifiers: Hypertension type: unspecified Qualified Code(s): I10 - Essential (primary) hypertension ALLERGIES Allergies Allergy/AdvReac Type Severity Reaction Status Date / Time cyclobenzaprine (From Allergy Severe Unknown Verified 06/06/24 05:26 Flexeril) Iodine and Iodide Containing Allergy Severe Rash Verified 06/06/24 05:26 Produc sulfamethoxazole (From Allergy Severe Rash Verified 06/06/24 05:26 Bactrim) trimethoprim (From Bactrim) Allergy Rash Verified 04/08/22 09:56 Iodinated Contrast Media AdvReac Mild Hives Verified 04/08/22 09:56 cyclobenzaprine HCl * (From AdvReac Unknown Verified 04/08/22 09:56 Flexeril) MEDICATIONS Ambulatory Orders Medication Instructions Recorded Confirmed rivaroxaban 20 mg tablet (Xarelto) 20 mg PO DAILY 04/04/17 06/14/24 paroxetine HCl 20 mg tablet See Rx Instructions .Route 03/19/24 06/14/24 .COMPLEX #90 tabs tolterodine 4 mg capsule,extended See Rx Instructions .Route 03/19/24 06/14/24 release 24 hr .COMPLEX #30 caps metoprolol tartrate 25 mg tablet 50 mg (2 x 25 mg) PO BID #180 tabs 05/29/24 06/14/24 acyclovir 5 % topical cream 1 applic topical 5XD 06/06/24 06/14/24 albuterol sulfate 90 mcg/actuation 2 inh inhalation Q6H PRN SOA 06/06/24 06/14/24 breath activated powder inhaler (ProAir RespiClick) blood sugar diagnostic [OneTouch 06/06/24 Verio test strips] bupropion HCl 150 mg 24 hr tablet, 150 mg PO QDAY 06/06/24 06/14/24 extended release (Wellbutrin XL) dulaglutide 0.75 mg/0.5 mL 0.75 mg subcut QWEEK 06/06/24 06/14/24 subcutaneous pen injector (Yozio) ketoconazole 2 % topical cream 1 applic topical BID 06/06/24 06/14/24 levothyroxine 137 mcg tablet 137 mcg PO QDAY 06/06/24 06/14/24 (Synthroid) syringe with needle 3 mL 25 gauge 06/06/24 x 1" (Monoject 3cc Syringe) diphenhydramine HCl 25 mg tablet 25 mg PO Q8H PRN allergy symptoms 06/14/24 06/14/24 (Allergy (diphenhydramine)) fluticasone propionate 50 1 spray intranasal DAILY PRN 06/14/24 06/14/24 mcg/actuation nasal allergy symptoms spray,suspension (24 Hour Allergy Relief) pantoprazole 40 mg tablet,delayed 40 mg PO BID 06/14/24 06/14/24 release sitagliptin phosphate 100 mg 100 mg PO DAILY 06/14/24 06/14/24 tablet (Januvia) magnesium oxide 400 mg (241.3 mg 400 mg PO DAILYWM #30 tabs 06/17/24 magnesium) tablet PHYSICAL EXAM AT DISCHARGE Vital Signs: Vital Signs x48h Pulse Resp 06/18/24 08:37 71 06/18/24 07:50 71 20 LABS 06/18/24 05:24 06/18/24 05:24 Discharge Plan Discharge Patient Disposition: DC/Xfer Condition: Fair Prescriptions: New magnesium oxide 400 mg (241.3 mg magnesium) Tablet 400 mg PO DAILYWM Qty: 30 0RF Continued paroxetine HCl 20 mg tablet See Rx Instructions .ROUTE .COMPLEX Qty: 90 11RF Dose Instruction: TAKE 3 TABLETS DAILY (NEED TO BE SEEN FOR REFILLS) Rx Instructions: TAKE 3 TABLETS DAILY (NEED TO BE SEEN FOR REFILLS) tolterodine 4 mg capsule,extended release 24hr See Rx Instructions .ROUTE .COMPLEX Qty: 30 11RF Dose Instruction: TAKE 1 CAPSULE AT BEDTIME FOR BLADDER CONTROL(NEED APPOINTMENT FOR FURTHER REFILLS) Rx Instructions: TAKE 1 CAPSULE AT BEDTIME FOR BLADDER CONTROL(NEED APPOINTMENT FOR FURTHER REFILLS) metoprolol tartrate 25 mg tablet 50 mg PO BID Qty: 180 3RF ProAir RespiClick 90 mcg/actuation aerosol powdr breath activated 2 inh inhalation Q6H PRN (Reason: SOA) levothyroxine [Synthroid] 137 mcg tablet 137 mcg PO QDAY Trulicity 0.75 mg/0.5 mL pen injector 0.75 mg subcut QWEEK bupropion HCl [Wellbutrin XL] 150 mg tablet extended release 24 hr 150 mg PO QDAY acyclovir 5 % cream 1 applic topical 5XD (DME) Monoject 3cc Syr 25Gx1" 3 mL 25 gauge x 1" syringe See Rx Instructions .ROUTE Rx Instructions: Use 1 syringe intramuscularly once a day as directed use one syringe to inject b12 daily for one week and then use once a week for five weeks ketoconazole 2 % cream 1 applic topical BID (DME) blood sugar diagnostic [OneTouch Verio test strips] See Rx Instructions .ROUTE Rx Instructions: Onetouch Ultra Blue in Vitro Strip .... Use 1 strip as directed once a day as directed Xarelto 20 MG tablet 20 mg PO DAILY Januvia 100 mg tablet 100 mg PO DAILY pantoprazole 40 mg tablet,delayed release (DR/EC) 40 mg PO BID diphenhydramine HCl [Allergy (diphenhydramine)] 25 mg tablet 25 mg PO Q8H PRN (Reason: allergy symptoms) fluticasone propionate [24 Hour Allergy Relief] 50 mcg/actuation spray,suspension 1 spray intranasal DAILY PRN (Reason: allergy symptoms) Rx Instructions: administer into each nostril Activity Restrictions: Activity as Tolerated Diet: Regular Health Concerns: You came in because you were fatigued, or feeling very weak at home. When you first got here, you were found to have a urinary tract infection. We did an abdomen/pelvis CT and it shows that you had an obstructive stone on your right side. You underwent a urological procedure, and a stent was placed. You will need to follow up with urology in the outpatient setting. It appeared that the infection has spread from your urine to your blood. As such, you are going to require total of 7 days of IV antibiotics. You received 4 days of IV antibiotics here, and we placed a PICC line so you can continue getting IV antibiotics for 3 additional days at your rehab facility. We are glad that you are feeling better. We will be keeping you and your son in our thoughts. We hope you continue to feel stronger! Print Language: Hungarian Patient Instructions: Surgery Anesthesia After, Stents Ureteral Stand Alone Forms: SNF Discharge, PCP List Follow-up Care: Chung Newsome MD [Provider Admit Priv/Credential] - (You must call Dr. Newsome's office to follow-up to discuss your stones and your stent. You still have a stone and stent in place. You need further procedures to have these removed) Corinne Munoz PA-C [Primary Care Provider] -
[2024-06-18] MEDS ORDERED: MAGNESIUM SULFATE 2 GRAM 2 GM/50 ML BAG IV ONE (09:56)
[2024-06-18] MEDS ORDERED: PANTOPRAZOLE 40 MG TABLET PO SCH (16:00)
== END 2024-06-18 09:35 | DRG 853 ==
LOC: ED 19:50 → MS2 23:57
PROVIDERS: ADMIT Student in an Organized Health Care Education/Training Program; ATTEND Student in an Organized Health Care Education/Training Program
DX: N18.9 Chronic kidney disease, unspecified; Z20.822 Contact with and (suspected) exposure to COVID-19; Z79.01 Long term (current) use of anticoagulants; G92.8 Other toxic encephalopathy; E87.1 Hypo-osmolality and hyponatremia; E78.5 Hyperlipidemia, unspecified; R42 Dizziness and giddiness; R09.02 Hypoxemia; E11.69 Type 2 diabetes mellitus with other specified complication; Z20.818 Contact with and (suspected) exposure to other bacterial communicable diseases; E03.9 Hypothyroidism, unspecified; R79.89 Other specified abnormal findings of blood chemistry; A41.9 Sepsis, unspecified organism; E11.22 Type 2 diabetes mellitus with diabetic chronic kidney disease; N39.0 Urinary tract infection, site not specified; R53.81 Other malaise; F32.A Depression, unspecified; J18.9 Pneumonia, unspecified organism; Z79.890 Hormone replacement therapy; A41.59 Other Gram-negative sepsis; I26.94 Multiple subsegmental thrombotic pulmonary emboli without acute cor pulmonale; E11.65 Type 2 diabetes mellitus with hyperglycemia; N17.9 Acute kidney failure, unspecified; Z79.85 Long-term (current) use of injectable non-insulin antidiabetic drugs; R65.20 Severe sepsis without septic shock; N13.6 Pyonephrosis; Z20.828 Contact with and (suspected) exposure to other viral communicable diseases; E86.0 Dehydration; Z91.81 History of falling; I12.9 Hypertensive chronic kidney disease with stage 1 through stage 4 chronic kidney disease, or unspecified chronic kidney disease; Z79.899 Other long term (current) drug therapy